=== PATIENT | male | born 1970 | race Caucasian/White ===

== ENCOUNTER 2017-06-11 21:00 | Inpatient (IN) | payer MEDICARE, OTHER ==
[2017-06-11] MEDS ORDERED: NORMAL SALINE 1,000 ML IV ONE (21:21)
[2017-06-11] MEDS ORDERED: ONDANSETRON HCL/PF 2 MG/ML VIAL IV ONE (21:21)
[2017-06-11] MEDS ORDERED: ONDANSETRON HCL/PF 2 MG/ML VIAL ONE (21:24)
[2017-06-11 21:47] LABS: Hematocrit 48.7 % (42.0-52.0); Hemoglobin 17.1 gm/dL (13.5-18.0); Mean Cell Volume 91.7 fl (78-100); Mean Corpuscular Hemoglobin 32.2 pg (27-31); Mean Corpuscular Hgb Conc 35.1 g/dl (32-36); Mean Platelet Volume 11.9 fl (6.0-9.5); Platelet Count 240 K/mm3 (150-450); Red Blood Count 5.31 M/mm3 (4.7-6.0); White Blood Count 9.6 K/mm3 (4.0-10.5)
[2017-06-11 21:51] LABS: Total Cells Counted 100
[2017-06-11] MEDS ORDERED: DIATRIZOATE MEGLUMINE, SODIUM 30 ML BTL ONE (21:58)
[2017-06-11 21:59] LABS: Albumin * 3.7 gm/dl (3.4-5.0); Anion Gap 15.8 mmol/L (6.8-13.8); BUN/Creatinine Ratio 10.9 (9.0-21.6); Band 3 % (0-2.0); Bilirubin, Total 0.8 mg/dL (0.0-1.1); Ca. Corrected For Albumin 9.2 mg/dL (8.4-10.2); Calcium * 9.3 mg/dL (7.9-10.9); Carbon Dioxide 26.3 mmol/L (24-32.6); Lymphocyte 31 % (20-51); Monocyte 26 % (0-9); Neutrophil 40 % (42-75); Neutrophil # 3.8 K/mm3 (1.3-6.0); Platelet Estimate Normal (NORMAL); Potassium 4.1 mmol/L (3.4-4.6); RBC Morphology Normal (NORMAL); Total Protein 8.2 gm/dL (6.2-8.2)
[2017-06-11] MEDS ORDERED: DIATRIZOATE MEGLUMINE, SODIUM 30 ML BTL PO ONE (22:01)
--- NOTE | 2017-06-11 22:52 | ERNOTE ---
Medical Problem HPI - General Chief Complaint: Nausea/Vomiting Source: family - family history is per mother as patient has had traumatic brain injury. Exam Limitations: no limitations - Immun/Allergies/Home Medications Immunizations: IMMUNIZATION HX Immunizations Up to Date Yes History of Influenza Vaccine No Hx Pneumococcal Vaccination No Allergies/Adverse Reactions: Allergies No Known Allergies Allergy (Unverified 06/11/17 21:15) - History of Present History Narrative: Patient resides with his mother and mother states that the patient has had nausea vomiting abdominal pain and diarrhea for 48 hours. No medications have been administered. Patient has not been drinking for the past 24 hours. He is here for worsening abdominal pain and distention. Review of Systems - Review of Systems Constitutional: Present: See HPI EYE: Present: no symptoms reported ENT: Present: no symptoms reported Respiratory: Present: no symptoms reported Cardiology: Present: no symptoms reported Gastrointestinal/Abdominal: Present: See HPI - Patient's Past Medical History Patient History - Medical: GERD, Seizures Patient History - Cardiac/Respiratory: No pertinent hx Patient History - Cancer: Brain Patient History - Surgical Procedures: Cancer Surgery Patient History - Other: None - Social History Living Situations: home Psych History: No pertinent hx - Immunizations Immunizations Up to Date: Yes Hx Pneumococcal Vaccination: No History of Influenza Vaccine: No Physical Exam - Physical Exam General Appearance: Present: wd/wn, alert, no apparent distress - patient is resting comfortably in the chair he does not respond readily but this is normal for him as he has had brain tumor and he's post surgically the way he is. Is normal for the patient. Head Exam: Present: normal inspection Respiratory: Present: no respiratory distress, normal breath sounds, no accessory muscle use, chest nontender, lungs clear Cardiovascular/Chest: Present: regular rate, rhythm, no murmur, normal peripheral pulses Gastrointestinal/Abdominal: Present: other - abdomen appears distended and tense on examination he has diffuse abdominal tenderness in all 4 quadrants. There is no rebound tenderness but patient is guarding. ED Progress - Results and Orders Patient's Lab Results:: I have reviewed the patient's lab results. - Vital Signs Patient's Vital Signs:: I have reviewed the patient's vital signs. Vital Signs: Vital Signs 06/11/17 06/11/17 21:10 22:07 Temperature 36.6 C Pulse Rate 117 H 121 H Respiratory 16 Rate Blood Pressure 183/89 140/92 O2 Sat by Pulse 92 92 Oximetry - CT/Ultrasound CT/Ultrasound Narrative: CT was read as small bowel obstruction. This patient has SBO and will be admitted. These findings were conveyed to our hospitalist and pt will be admitted - Progress/Reassessment Chief Complaint: Nausea/Vomiting Plan - Plan Plan: This patient's signs and symptoms and CAT scan are consistent with a small bowel obstruction. At this time the hospitalist with consult the patient will be admitted to the [facility] floor. Departure - Departure Clinical Impression: Small bowel obstruction Disposition: [facility] Condition: Fair
--- OUTSIDE RECORDS SUMMARY | 2017-06-11 23:19 | XMS REPORT | Continuity of Care Document ---
:1970 Author Organization [facility] [place] [address] Care Team Providers Name Role Phone Unavailable Primary Care Provider Unavailable Source Comments This disclosure is being made pursuant to the [employer] program and maynot contain all information available regarding this patient.[facility] Active Allergies and Adverse Reactions Not on File Current Medications Be aware that medications may not be up to date as of this document. Alwaysverify current medications with the patient. Not on file Active Problems Not on file Social History Tobacco Use Types Packs/Day Years Used Date Never Assessed Plan of Care Health Maintenance Due Date Last Done Comments Retired-Pertussis Vaccine Adult 1989 Retired-Tetanus Vaccine Adult 1989 Retired-INFLUENZA VACCINE 07/29/2015 Results from Last 3 Months Not on file
[2017-06-12 00:31] LABS: Urine Bilirubin 1 mg/dl (NEGATIVE); Urine Blood 25 /ul (NEGATIVE); Urine Ketone 5 mg/dL (NEGATIVE); Urine Protein 100 mg/dL (NEGATIVE); Urine Specific Gravity 1.015 SP.GR. (1.005-1.030); Urine Urobilinogen Normal (NORMAL); Urine pH 6.5 pH (5.0-7.0)
[2017-06-12] MEDS ORDERED: MORPHINE SULFATE 2 MG/ML DISP.SYRIN IV ONE (00:32)
[2017-06-12] MEDS ORDERED: MORPHINE SULFATE 2 MG/ML DISP.SYRIN ONE (00:34)
[2017-06-12 00:50] LABS: Urine Amorphous Sediment TRACE (NONE-FEW); Urine Appearance Slightly Cloudy; Urine Bacteria 2+; Urine Color Amber; Urine Fine Granular Cast 0-5 /LPF; Urine Hyaline Cast 0-5 /LPF; Urine Mucus Moderate - 2+; Urine Nitrite Positive (NEGATIVE); Urine WBC 0-5 /hpf (0-5)
[2017-06-12] MEDS ORDERED: ONDANSETRON HCL/PF 2 MG/ML VIAL IV PRN (01:24)
[2017-06-12] MEDS ORDERED: MORPHINE SULFATE 2 MG/ML DISP.SYRIN IV PRN (01:24)
[2017-06-12] MEDS ORDERED: ENOXAPARIN SODIUM 40 MG/0.4 ML SYRG SC SCH (01:30)
--- NOTE | 2017-06-12 01:36 | HP ---
<Madeline Bruce - Last Filed: 06/12/17 03:22> Chief Complaint - Chief Complaint Date of Service: 06/12/17 Time of Service: 01:25 Chief Complaint: SBO, UTI History of Present Illness: Marino is a 47 year old male with a PMH of traumatic brain injury, GERD, seizures , Brain Ca s/p brain surgery that presented to the ER with his mother with c/o nausea, vomiting and abdominal pain x 2 days. no fever/chills. no cp, dyspnea. ER eval revealed normal wbc with 40% neutrophils and 3% bands. CMP wnl except mildly elevated glucose. UA positive for protein, blood, nitrate, bilirubin (1), RBC, 2+ bacteria, hyaline casts and fine granular casts. CT abdomen showed distended stomach and small bowel with air fluid levels and a transition point in the right lower abdomen with unremarkable appendix. There was also trace free intraperitoneal fluid with shunt catheter in place and no free air. Patient to be admitted for SBO and UTI. - Patient's Past Medical History Patient History - Medical: GERD, Seizures Patient History - Cardiac/Respiratory: No pertinent hx Patient History - Cancer: Brain Patient History - Surgical Procedures: Cancer Surgery, Other - Shunt from brain to abdomen Patient History - Other: None - Family History Mother Family History - Medical: No pertinent hx Family History - Cardiac/Respiratory: No pertinent hx Family History - Cancer: No pertinent family hx Father Family History - Medical: No pertinent hx Family History - Cardiac/Respiratory: No pertinent hx Family History - Cancer: Melanoma, Other Maternal grandmother Family History - Medical: Family History - Cardiac/Respiratory: No pertinent hx Family History - Cancer: No pertinent family hx Maternal grandfather Family History - Medical: Family History - Cardiac/Respiratory: No pertinent hx Family History - Cancer: Leukemia Paternal grandmother Family History - Medical: Family History - Cardiac/Respiratory: No pertinent hx Family History - Cancer: Stomach Paternal grandfather Family History - Medical: Family History - Cardiac/Respiratory: No pertinent hx Family History - Cancer: No pertinent family hx - Social History Living Situations: home Psych History: No pertinent hx Smoking Status: Current every day smoker Have you smoked in the past 12 months: Yes Alcohol Use: none Drug Use: none - Immunizations Immunizations Up to Date: Yes Hx Pneumococcal Vaccination: No History of Influenza Vaccine: No Review Of Systems (GEN) - Review of Systems Generalized/Overall Review: Present: No Symptoms Reported EENTM: Present: No Symptoms Reported Respiratory: Present: No Symptoms Reported Cardiac: Present: No Symptoms Reported Abdominal: Present: Nausea, Vomiting, Abdominal Pain Genitourinary: Present: No Symptoms Reported Musculoskeletal: Present: No Symptoms Reported Neurological: Present: No Symptoms Reported Skin: Present: No Symptoms Reported Endocrine: Present: No Symptoms Reported Misc: All systems neg except as marked Immunizations: IMMUNIZATION HX Immunizations Up to Date Yes History of Influenza Vaccine No Hx Pneumococcal Vaccination No Allergies/Adverse Reactions: Allergies Allergy/AdvReac Type Severity Reaction Status Date / Time No Known Allergies Allergy Unverified 06/11/17 21:15 Home Medications: HOME MEDICATIONS Divalproex Sodium [Depakote] 1,250 mg PO DAILY 06/12/17 [Last Taken Unknown] Haloperidol 20 mg PO BID 06/12/17 [Last Taken Unknown] Oxybutynin Chloride [Ditropan] 5 mg PO HS 06/12/17 [Last Taken Unknown] Pantoprazole Sodium 20 mg PO DAILY 06/12/17 [Last Taken Unknown] QUEtiapine FUMARATE [Seroquel] 400 mg PO DAILY 06/12/17 [Last Taken Unknown] QUEtiapine FUMARATE [Seroquel] 500 mg PO HS 06/12/17 [Last Taken Unknown] Exam - Exam Vital Signs: Vital Signs - Last Taken Temp 36.6 C 06/11/17 21:10 Pulse 79 06/12/17 00:05 Resp 16 06/12/17 00:05 BP 145/72 06/12/17 00:05 Pulse Ox 98 06/12/17 00:05 Constitutional: Present: Alert, Cooperative, No distress ENT Exam: Present: hearing grossly normal Eye Exam: bilateral eye: normal inspection Neck: Present: full range of motion, supple Breasts: Present: Exam deferred Respiratory: Present: normal breath sounds, no respiratory distress, no accessory muscle use Cardiovascular/Chest: Present: normal peripheral pulses, regular rate, rhythm, no chest tenderness, no murmur Peripheral Pulses: dorsalis-pedis (R): 2+, dorsalis-pedis (L): 2+, radial (R): 2 +, radial (L): 2+ Abdomen: Present: tender - diffuse tenderness to palpation, guarding, rigidity, hypoactive /Rectal: Present: Exam deferred Extremity: Present: non-tender, normal inspection, no calf tenderness Skin Exam: Present: normal color, warm/dry, no cyanosis Diagnostic Studies: Laboratory Results WBC 9.6 K/mm3 (4.0-10.5) 06/11/17 21:40 RBC 5.31 M/mm3 (4.7-6.0) 06/11/17 21:40 Hgb 17.1 gm/dL (13.5-18.0) 06/11/17 21:40 Hct 48.7 % (42.0-52.0) 06/11/17 21:40 MCV 91.7 fl (78-100) 06/11/17 21:40 MCH 32.2 pg (27-31) H 06/11/17 21:40 MCHC 35.1 g/dl (32-36) 06/11/17 21:40 RDW 13.0 % (11.5-14.0) 06/11/17 21:40 Plt Count 240 K/mm3 (150-450) 06/11/17 21:40 MPV 11.9 fl (6.0-9.5) H 06/11/17 21:40 Neutrophils % (Manual) 40 % (42-75) L 06/11/17 21:40 Band Neuts % (Manual) 3 % (0-2.0) H 06/11/17 21:40 Lymphocytes % (Manual) 31 % (20-51) 06/11/17 21:40 Monocytes % (Manual) 26 % (0-9) H 06/11/17 21:40 Neutrophils # (Manual) 3.8 K/mm3 (1.3-6.0) 06/11/17 21:40 Lymphocytes # (Manual) 3.0 k/mm3 (1.5-3.5) 06/11/17 21:40 Monocytes # (Manual) 2.5 k/mm3 (0.0-1.0) H 06/11/17 21:40 Platelet Estimate Normal (NORMAL) 06/11/17 21:40 RBC Morphology Normal (NORMAL) 06/11/17 21:40 Sodium 138 mmol/L (132-142) 06/11/17 21:40 Plasma Sodium 139 mmol/L (130-142) 06/11/17 21:40 Potassium 4.1 mmol/L (3.4-4.6) 06/11/17 21:40 Chloride 100 mmol/L (97-106) 06/11/17 21:40 Carbon Dioxide 26.3 mmol/L (24-32.6) 06/11/17 21:40 Anion Gap 15.8 mmol/L (6.8-13.8) H 06/11/17 21:40 BUN 14 mg/dL (6-23) 06/11/17 21:40 Creatinine 1.29 mg/dL (0.4-1.4) 06/11/17 21:40 Est GFR (Non-Af Amer) 63 mL/min (60-130) 06/11/17 21:40 BUN/Creatinine Ratio 10.9 (9.0-21.6) 06/11/17 21:40 Random Glucose 133 mg/dL (70-110) H 06/11/17 21:40 Calcium 9.3 mg/dL (7.9-10.9) 06/11/17 21:40 Calcium Adj for Albumin 9.2 mg/dL (8.4-10.2) 06/11/17 21:40 Total Bilirubin 0.8 mg/dL (0.0-1.1) 06/11/17 21:40 AST 16 U/L (0-48) 06/11/17 21:40 ALT 23 U/L (19-67) 06/11/17 21:40 Alkaline Phosphatase 72 U/L (50-170) 06/11/17 21:40 Total Protein 8.2 gm/dL (6.2-8.2) 06/11/17 21:40 Albumin 3.7 gm/dl (3.4-5.0) 06/11/17 21:40 Urine Color Crystal 06/12/17 00:12 Urine Appearance Slightly cloudy 06/12/17 00:12 Urine pH 6.5 pH (5.0-7.0) 06/12/17 00:12 Ur Specific [place] 1.015 SP.GR. (1.005-1.030) 06/12/17 00:12 Urine Protein 100 mg/dL (NEGATIVE) H 06/12/17 00:12 Urine Glucose (UA) Negative mg/dL (NEGATIVE) 06/12/17 00:12 Urine Ketones 5 mg/dL (NEGATIVE) 06/12/17 00:12 Urine Blood 25 /ul (NEGATIVE) H 06/12/17 00:12 Urine Nitrate Positive (NEGATIVE) H 06/12/17 00:12 Urine Bilirubin 1 mg/dl (NEGATIVE) H 06/12/17 00:12 Urine Ictotest Negative (NEGATIVE) 06/12/17 00:12 Prot Sulfosalicylic Acd 2+ mg/dL (0) H 06/12/17 00:12 Urine Urobilinogen Normal EU/dl (NORMAL) 06/12/17 00:12 Ur Leukocyte Esterase Negative /ul (NEGATIVE) 06/12/17 00:12 Urine RBC 5-10 /hpf (0-5) H 06/12/17 00:12 Urine WBC 0-5 /hpf (0-5) 06/12/17 00:12 Ur Epithelial Cells None seen /hpf (0-5) 06/12/17 00:12 Amorphous Sediment Trace (NONE-FEW) 06/12/17 00:12 Urine Bacteria 2+ (NONE) H 06/12/17 00:12 Hyaline Casts 0-5 /LPF (NONE) H 06/12/17 00:12 Fine Granular Casts 0-5 /LPF (NONE) H 06/12/17 00:12 Urine Mucus Moderate - 2+ (NONE) H 06/12/17 00:12 Urine Culture Comments Culture to follow 06/12/17 00:12 Assessment/Plan - Narrative Narrative: Small Bowel Obstruction - NPO - insert NG and attach to low intermittent suction - Protonix 40 mg IV daily - Pain meds and nausea medications PRN - NS @ 125 ml/hr - Consult Dr Garcia with General Surgery to follow / for recommendations UTI - Rocephin 1 gm IV daily - awaiting final urine culture results - check blood cultures TBI - continue home meds - Haldol IM PRN restlessness Code status: Full Code VTE: Lovenox / SCDs while in bed GI proph: IV protonix Addendum: after admission, patient had 1750 ml of NG output shortly after NG inserted. NG drainage brown / benito colored with particular smell. Gastric occult ordered and + for blood. Now that this information is known, will d/c lovenox and use SCDs while in bed for VTE proph. no pharmalogical due to GI bleed. Dr Garcia was notified of admission, updated on case and he denied any further recommendations on 06/12/17 at 0236. Recheck patient's abdomen at this time and it is much softer that at admission since placing the NG tube. - Assessment/Plan (1) Small bowel obstruction Problem: Acute (2) UTI (urinary tract infection) Problem: Acute QualifierTitle: Urinary tract infection type: acute cystitis Hematuria presence: with hematuria Qualified Code(s): N30.01 - Acute cystitis with hematuria (3) TBI (traumatic brain injury) Problem: Chronic QualifierTitle: Encounter type: sequela (4) GERD (gastroesophageal reflux disease) Problem: Chronic QualifierTitle: Esophagitis presence: esophagitis presence not specified Qualified Code(s): K21.9 - Gastro-esophageal reflux disease without esophagitis (5) Seizures Problem: Chronic <Holland Nagy - Last Filed: 06/12/17 08:49> Immunizations: IMMUNIZATION HX Immunizations Up to Date Yes History of Influenza Vaccine No Hx Pneumococcal Vaccination No Exam - Exam Vital Signs: Vital Signs - Last Taken Temp 36.8 C 06/12/17 06:20 Pulse 115 H 06/12/17 06:20 Resp 20 06/12/17 06:20 BP 146/93 06/12/17 06:20 Pulse Ox 93 06/12/17 06:20 Diagnostic Studies: Abnormal Lab Results 06/12/17 Range/Units 02:21 Gastric Occult Blood Positive H Laboratory Results WBC 9.6 K/mm3 (4.0-10.5) 06/11/17 21:40 RBC 5.31 M/mm3 (4.7-6.0) 06/11/17 21:40 Hgb 17.1 gm/dL (13.5-18.0) 06/11/17 21:40 Hct 48.7 % (42.0-52.0) 06/11/17 21:40 MCV 91.7 fl (78-100) 06/11/17 21:40 MCH 32.2 pg (27-31) H 06/11/17 21:40 MCHC 35.1 g/dl (32-36) 06/11/17 21:40 RDW 13.0 % (11.5-14.0) 06/11/17 21:40 Plt Count 240 K/mm3 (150-450) 06/11/17 21:40 MPV 11.9 fl (6.0-9.5) H 06/11/17 21:40 Neutrophils % (Manual) 40 % (42-75) L 06/11/17 21:40 Band Neuts % (Manual) 3 % (0-2.0) H 06/11/17 21:40 Lymphocytes % (Manual) 31 % (20-51) 06/11/17 21:40 Monocytes % (Manual) 26 % (0-9) H 06/11/17 21:40 Neutrophils # (Manual) 3.8 K/mm3 (1.3-6.0) 06/11/17 21:40 Lymphocytes # (Manual) 3.0 k/mm3 (1.5-3.5) 06/11/17 21:40 Monocytes # (Manual) 2.5 k/mm3 (0.0-1.0) H 06/11/17 21:40 Platelet Estimate Normal (NORMAL) 06/11/17 21:40 RBC Morphology Normal (NORMAL) 06/11/17 21:40 Sodium 138 mmol/L (132-142) 06/11/17 21:40 Plasma Sodium 139 mmol/L (130-142) 06/11/17 21:40 Potassium 4.1 mmol/L (3.4-4.6) 06/11/17 21:40 Chloride 100 mmol/L (97-106) 06/11/17 21:40 Carbon Dioxide 26.3 mmol/L (24-32.6) 06/11/17 21:40 Anion Gap 15.8 mmol/L (6.8-13.8) H 06/11/17 21:40 BUN 14 mg/dL (6-23) 06/11/17 21:40 Creatinine 1.29 mg/dL (0.4-1.4) 06/11/17 21:40 Est GFR (Non-Af Amer) 63 mL/min (60-130) 06/11/17 21:40 BUN/Creatinine Ratio 10.9 (9.0-21.6) 06/11/17 21:40 Random Glucose 133 mg/dL (70-110) H 06/11/17 21:40 Calcium 9.3 mg/dL (7.9-10.9) 06/11/17 21:40 Calcium Adj for Albumin 9.2 mg/dL (8.4-10.2) 06/11/17 21:40 Total Bilirubin 0.8 mg/dL (0.0-1.1) 06/11/17 21:40 AST 16 U/L (0-48) 06/11/17 21:40 ALT 23 U/L (19-67) 06/11/17 21:40 Alkaline Phosphatase 72 U/L (50-170) 06/11/17 21:40 C-Reactive Prot, Quant 10.6 mg/dL (0.0-0.9) H 06/12/17 00:00 Total Protein 8.2 gm/dL (6.2-8.2) 06/11/17 21:40 Albumin 3.7 gm/dl (3.4-5.0) 06/11/17 21:40 Urine Color Crystal 06/12/17 00:12 Urine Appearance Slightly cloudy 06/12/17 00:12 Urine pH 6.5 pH (5.0-7.0) 06/12/17 00:12 Ur Specific [place] 1.015 SP.GR. (1.005-1.030) 06/12/17 00:12 Urine Protein 100 mg/dL (NEGATIVE) H 06/12/17 00:12 Urine Glucose (UA) Negative mg/dL (NEGATIVE) 06/12/17 00:12 Urine Ketones 5 mg/dL (NEGATIVE) 06/12/17 00:12 Urine Blood 25 /ul (NEGATIVE) H 06/12/17 00:12 Urine Nitrate Positive (NEGATIVE) H 06/12/17 00:12 Urine Bilirubin 1 mg/dl (NEGATIVE) H 06/12/17 00:12 Urine Ictotest Negative (NEGATIVE) 06/12/17 00:12 Prot Sulfosalicylic Acd 2+ mg/dL (0) H 06/12/17 00:12 Urine Urobilinogen Normal EU/dl (NORMAL) 06/12/17 00:12 Ur Leukocyte Esterase Negative /ul (NEGATIVE) 06/12/17 00:12 Urine RBC 5-10 /hpf (0-5) H 06/12/17 00:12 Urine WBC 0-5 /hpf (0-5) 06/12/17 00:12 Ur Epithelial Cells None seen /hpf (0-5) 06/12/17 00:12 Amorphous Sediment Trace (NONE-FEW) 06/12/17 00:12 Urine Bacteria 2+ (NONE) H 06/12/17 00:12 Hyaline Casts 0-5 /LPF (NONE) H 06/12/17 00:12 Fine Granular Casts 0-5 /LPF (NONE) H 06/12/17 00:12 Urine Mucus Moderate - 2+ (NONE) H 06/12/17 00:12 Urine Culture Comments Culture to follow 06/12/17 00:12 Gastric Occult Blood Positive H 06/12/17 02:21 Assessment/Plan - Narrative Narrative: Feels much better, surgery consult pending, plan discussed with patient and mother. I directed all of our nurse practitioner hospitalist care for this patient.
[2017-06-12] MEDS: PANTOPRAZOLE SODIUM 40 MG in NORMAL SALINE 100 ML IV SCH (02:05)
[2017-06-12] MEDS: NORMAL SALINE 1,000 ML IV PRN ×3 (02:06→19:18)
[2017-06-12] MEDS ORDERED: HALOPERIDOL LACTATE 5 MG/ML VIAL IM PRN (02:37)
[2017-06-12] MEDS ORDERED: PANTOPRAZOLE SODIUM 20 MG TABLET.DR PO SCH (07:00)
[2017-06-12] MEDS ORDERED: DIVALPROEX SODIUM 250 MG TABLET.DR PO SCH (09:00)
[2017-06-12] MEDS ORDERED: QUEtiapine FUMARATE 100 MG TABLET PO SCH ×2 (09:00→21:00)
[2017-06-12] MEDS ORDERED: HALOPERIDOL 5 MG TABLET PO SCH (09:00)
[2017-06-12] MEDS ORDERED: DIVALPROEX SODIUM 500 MG TABLET.DR PO SCH (09:00)
[2017-06-12] MEDS: VALPROIC ACID IV SCH ×2 (10:02→22:23)
[2017-06-12] MEDS: NORMAL SALINE IV SCH ×2 (10:02→22:23)
[2017-06-12] MEDS ORDERED: LORazepam 2 MG/ML DISP.SYRIN IV ONE (10:21)
--- NOTE | 2017-06-12 11:48 | CONS ---
[facility] - General Date of Service: 06/12/17 Narrative: Pt was admitted overnight with a partial small bowel obstruction and I have been asked to consult and follow along. He has a history of TBI and Brain CA and has a PLUG SHAPER HAND shunt. CT last night showed a partial small bowel obstruction without a clear cut transition point. He states that he is feeling better this morning. Initial placement of NG retrieved ~1700 cc of feculent return. Source: patient, RN/MD, old records Exam Limitations: no limitations - History of Present Illness Allergies/Adverse Reactions: Allergies No Known Allergies Allergy (Unverified 06/11/17 21:15) Home Medications: Home Medications Medication Instructions Recorded Last Taken Divalproex Sodium [Depakote] 1,250 mg PO DAILY 06/12/17 Unknown Haloperidol 20 mg PO BID 06/12/17 Unknown Oxybutynin Chloride [Ditropan] 5 mg PO HS 06/12/17 Unknown Pantoprazole Sodium 20 mg PO DAILY 06/12/17 Unknown QUEtiapine FUMARATE [Seroquel] 400 mg PO DAILY 06/12/17 Unknown QUEtiapine FUMARATE [Seroquel] 500 mg PO HS 06/12/17 Unknown - Patient's Past Medical History Patient History - Medical: GERD, Seizures Patient History - Cardiac/Respiratory: No pertinent hx Patient History - Cancer: Brain Patient History - Surgical Procedures: Cancer Surgery, Other - Shunt from brain to abdomen Patient History - Other: None - Family History Mother Family History - Medical: No pertinent hx Family History - Cardiac/Respiratory: No pertinent hx Family History - Cancer: No pertinent family hx Father Family History - Medical: No pertinent hx Family History - Cardiac/Respiratory: No pertinent hx Family History - Cancer: Melanoma, Other Maternal grandmother Family History - Medical: Family History - Cardiac/Respiratory: No pertinent hx Family History - Cancer: No pertinent family hx Maternal grandfather Family History - Medical: Family History - Cardiac/Respiratory: No pertinent hx Family History - Cancer: Leukemia Paternal grandmother Family History - Medical: Family History - Cardiac/Respiratory: No pertinent hx Family History - Cancer: Stomach Paternal grandfather Family History - Medical: Family History - Cardiac/Respiratory: No pertinent hx Family History - Cancer: No pertinent family hx - Social History Living Situations: home Abuse History: No History of abuse Psych History: No pertinent hx Smoking Status: Current every day smoker Have you smoked in the past 12 months: Yes Do you dip or chew tobacco: No Patient requests Smoking Cessation Consult: No Initiate information on Smoking Cessation: No Alcohol Use: none Drug Use: none - Immunizations Immunizations Up to Date: Yes Hx Pneumococcal Vaccination: No History of Influenza Vaccine: No Medications - Medications Current Medications: Current Medications Enoxaparin Sodium (Lovenox) 40 mg SC Q24H [facility] Stop: 07/12/17 01:31 Last Admin: 06/12/17 02:24 Dose: 40 mg Pantoprazole Sodium 40 mg/ (Sodium Chloride) 100 mls @ 400 mls/hr IV Q24H [facility] Stop: 07/12/17 01:31 Last Infusion: 06/12/17 02:20 Dose: Infused Sodium Chloride (Sodium Chloride 0.9%) 1,000 mls @ 125 mls/hr IV .Q8H PRN PRN Reason: HYDRATION Stop: 07/12/17 01:23 Last Admin: 06/12/17 02:06 Dose: 125 mls/hr Ceftriaxone Sodium 1,000 mg/ (Dextrose/Water) 100 mls @ 200 mls/hr IV Q24H [facility] PRN Reason: Protocol Stop: 07/12/17 01:31 Last Infusion: 06/12/17 03:06 Dose: Infused Valproic Acid 600 mg/ Sodium (Chloride) 56 mls @ 50 mls/hr IV Q12H [facility] Stop: 06/26/17 09:31 Last Infusion: 06/12/17 10:31 Dose: Infused Morphine Sulfate (Morphine Sulfate) 2 mg IV Q1H PRN PRN Reason: Moderate Pain Stop: 07/12/17 01:25 Last Admin: 06/12/17 09:54 Dose: 2 mg Ondansetron HCl (Zofran) 4 mg IV Q4H PRN PRN Reason: Nausea Stop: 07/12/17 01:25 Last Admin: 06/12/17 10:38 Dose: 4 mg Physical Examination - Exam Vital Signs: Vital Signs - Last Taken Temp 37.8 C H 06/12/17 10:00 Pulse 133 H 06/12/17 10:00 Resp 20 06/12/17 10:00 BP 146/90 06/12/17 10:00 Pulse Ox 93 06/12/17 10:00 O2 Oxygen Delivery Method Room Air Constitutional: Present: Alert, Cooperative, No distress ENT Exam: Present: other - NG in place and draining bilious succus entericus Neck: Present: normal inspection Respiratory: Present: no respiratory distress, no accessory muscle use Abdomen: Present: soft, nontender, no rebound tenderness, distended. Absent: guarding, rigidity Extremity: Present: normal inspection Skin Exam: Present: normal color, warm/dry Neurologic: Present: no motor/sensory deficits - Results and Findings: Lab/Microbiology results last 24 hrs: Abnormal/Pending Laboratory Last 24 HRS 06/12/17 02:21 Gastric Occult Blood Positive H - Assessments/Findings (1) Partial small bowel obstruction Diagnosis(s): P: Agree with conservative measures. Doubt shunt infection. Likely etiology is adhesive from his shunt placement. Will follow. Problem: Acute
[2017-06-12] MEDS: PIPERACILLIN SODIUM/TAZOBACTAM 3.375 GM in DEXTROSE 5 % IN WATER 100 ML IV SCH ×4 (12:38→19:55)
[2017-06-12] MEDS: SACCHAROMYCES BOULARDII 250 MG CAPSULE PO SCH ×2 (12:39→21:13)
[2017-06-12] MEDS: HALOPERIDOL LACTATE 2 MG/ML BTL SL SCH ×2 (14:12→21:14)
[2017-06-12] MEDS ORDERED: OXYBUTYNIN CHLORIDE 5 MG TABLET PO SCH (21:00)
[2017-06-12] MEDS ORDERED: QUEtiapine FUMARATE 100 MG TABLET RC SCH (21:00)
[2017-06-12] MEDS ORDERED: DEXTROSE 5%-LACTATED RINGERS 1,000 ML IV PRN (21:36)
--- NOTE | 2017-06-12 21:39 | PN ---
Progess Note - Interim Narrative: 06/12/17 21:37 called to patient room by nursing staff. pt very hard to wake up but did after 15-20 seconds of sternal rub. has pulse and is breathing. sats 93% on O2. will hold scheduled seroquel and haldol due to oversedation tonight. blood sugar checked and was 107. change fluids to D5LR at 125 ml/hr. order entered for cont pulse ox. will monitor patient closely. sg
[2017-06-13] MEDS: PANTOPRAZOLE SODIUM 40 MG in NORMAL SALINE 100 ML IV SCH (01:04)
[2017-06-13] MEDS: PIPERACILLIN SODIUM/TAZOBACTAM 3.375 GM in DEXTROSE 5 % IN WATER 100 ML IV SCH ×6 (03:57→20:27)
[2017-06-13] MEDS: HALOPERIDOL LACTATE 2 MG/ML BTL SL SCH ×4 (05:01→23:34)
[2017-06-13 05:26] LABS: Hematocrit 44.6 % (42.0-52.0); Hemoglobin 15.1 gm/dL (13.5-18.0); Mean Cell Volume 94.3 fl (78-100); Mean Corpuscular Hemoglobin 31.9 pg (27-31); Mean Corpuscular Hgb Conc 33.9 g/dl (32-36); Mean Platelet Volume 12.2 fl (6.0-9.5); Platelet Count 207 K/mm3 (150-450); Red Blood Count 4.73 M/mm3 (4.7-6.0); Red Cell Distribution Width 13.2 % (11.5-14.0); White Blood Count 9.3 K/mm3 (4.0-10.5)
[2017-06-13 05:41] LABS: Albumin * 2.7 gm/dl (3.4-5.0); Anion Gap 10.3 mmol/L (6.8-13.8); BUN/Creatinine Ratio 15.3 (9.0-21.6); Bilirubin, Total 0.6 mg/dL (0.0-1.1); Ca. Corrected For Albumin 8.7 mg/dL (8.4-10.2); Carbon Dioxide 33.4 mmol/L (24-32.6); Potassium 3.7 mmol/L (3.4-4.6); Total Protein 7.2 gm/dL (6.2-8.2)
[2017-06-13 06:06] LABS: CRP 27.1 mg/dL (0.0-0.9)
[2017-06-13 06:20] LABS: Total Cells Counted 100
--- NOTE | 2017-06-13 06:22 | PN ---
<Madeline Bruce - Last Filed: 06/13/17 06:13> Subjective - Date and Time Seen Date: 06/13/17 Time: 06:13 Subjective Narrative: just pulled out NG tube. otherwise denies needs. Objective - Review of Systems Generalized/Overall Review: Reports: No Symptoms Reported EENTM: Reports: No Symptoms Reported Respiratory: Reports: No Symptoms Reported Cardiac: Reports: No Symptoms Reported Abdominal: Reports: No Symptoms Reported Genitourinary Symptoms: Reports: No Symptoms Reported Musculoskeletal Complaints: Reports: No Symptoms Reported Neurological: Reports: No Symptoms Reported Skin: Reports: No Symptoms Reported Endocrine: Reports: No Symptoms Reported Misc: All systems neg except as marked - Vitals Vitals: Last Vital Signs Temp 37.4 C 06/13/17 03:29 Pulse 99 06/13/17 03:29 Resp 22 H 06/13/17 03:29 BP 130/90 06/13/17 03:29 Pulse Ox 98 06/13/17 03:29 - Abnormal Lab Findings Abnormal Lab Findings: Abnormal Lab Results 06/13/17 Range/Units 04:45 Carbon Dioxide 33.4 H (24-32.6) mmol/L Est GFR (Non-Af Amer) 59 L (60-130) mL/min C-Reactive Prot, Quant 27.1 H (0.0-0.9) mg/dL Albumin 2.7 L (3.4-5.0) gm/dl - Exam Constitutional: Present: Alert, Cooperative, No distress ENT Exam: Present: hearing grossly normal Neck: Present: supple Breasts: Present: Exam deferred Respiratory: Present: normal breath sounds, no respiratory distress, no accessory muscle use Cardiovascular/Chest: Present: normal peripheral pulses, regular rate, rhythm, no chest tenderness Abdomen: Present: soft, nondistended, tender /Rectal: Present: Exam deferred Extremity: Present: non-tender, normal inspection Skin Exam: Present: normal color, warm/dry, no cyanosis Assessment/Plan Plan Narrative: Small Bowel Obstruction - NPO - pt just pulled out NG tube - checked ab xray - still with dilated small bowel - orders given to reinsert NG tube to low intermittent suction. - Protonix 40 mg IV daily - Pain meds and nausea medications PRN - D5LR @ 125 ml/hr - Dr Garcia with General Surgery following - appreciate - gastric occult positive - zosyn ordered for possible bowel infection UTI - Zosyn ordered iv - awaiting final urine culture results - blood cultures pending but no growth so far TBI - continue home meds Code status: Full Code VTE: SCDs while in bed. No lovenox due to GI Bleeding GI proph: IV protonix - Problems/Diagnosis (1) Small bowel obstruction Problem: Acute (2) UTI (urinary tract infection) Problem: Acute QualifierTitle: Urinary tract infection type: acute cystitis Hematuria presence: with hematuria Qualified Code(s): N30.01 - Acute cystitis with hematuria (3) TBI (traumatic brain injury) Problem: Chronic QualifierTitle: Encounter type: sequela (4) GERD (gastroesophageal reflux disease) Problem: Chronic QualifierTitle: Esophagitis presence: esophagitis presence not specified Qualified Code(s): K21.9 - Gastro-esophageal reflux disease without esophagitis (5) Seizures Problem: Chronic <Holland Nagy - Last Filed: 06/13/17 17:25> Subjective Subjective Narrative: Tube is still required. Treatment remains expectant at this juncture. I directed all of our nurse practitioner hospitalist care for this patient. Objective - Vitals Vitals: Last Vital Signs Temp 36.6 C 06/13/17 14:20 Pulse 107 H 06/13/17 17:00 Resp 12 06/13/17 14:20 BP 134/74 06/13/17 14:20 Pulse Ox 99 06/13/17 15:27 - Abnormal Lab Findings Abnormal Lab Findings: Abnormal Lab Results 06/13/17 06/13/17 06/13/17 Range/Units 04:45 04:45 04:45 MCH 31.9 H (27-31) pg MPV 12.2 H (6.0-9.5) fl Band Neuts % (Manual) 23 H (0-2.0) % Lymphocytes % (Manual) 19 L (20-51) % Monocytes % (Manual) 14 H (0-9) % Monocytes # (Manual) 1.3 H (0.0-1.0) k/mm3 ESR 18 H (0-10) mm/hr Carbon Dioxide 33.4 H (24-32.6) mmol/L Est GFR (Non-Af Amer) 59 L (60-130) mL/min C-Reactive Prot, Quant 27.1 H (0.0-0.9) mg/dL Albumin 2.7 L (3.4-5.0) gm/dl
[2017-06-13 06:26] LABS: Band 23 % (0-2.0); Dohle Bodies 1+; Lymphocyte 19 % (20-51); Monocyte 14 % (0-9); Neutrophil 44 % (42-75); Neutrophil # 4.1 K/mm3 (1.3-6.0); Platelet Estimate Normal (NORMAL)
[2017-06-13] MEDS: POTASSIUM CHLORIDE 20 MEQ in DEXTROSE 5%-LACTATED RINGERS 1,000 ML IV SCH ×3 (07:32→23:35)
[2017-06-13] MEDS ORDERED: QUEtiapine FUMARATE 100 MG TABLET RC SCH (09:00)
[2017-06-13] MEDS: SACCHAROMYCES BOULARDII 250 MG CAPSULE PO SCH ×2 (09:42→21:01)
[2017-06-13] MEDS: VALPROIC ACID IV SCH ×2 (09:42→21:02)
[2017-06-13] MEDS: QUEtiapine FUMARATE 100 MG TABLET RC SCH ×2 (09:42→21:02)
[2017-06-13] MEDS: NORMAL SALINE IV SCH ×2 (09:42→21:02)
--- NOTE | 2017-06-13 17:49 | PN ---
Dictated Progress Note - Date and Time Seen: Date: 06/13/17 Time: 16:00 - Progress Note Narrative: Vital Signs - Last Taken Temp 36.6 C 06/13/17 14:20 Pulse 107 H 06/13/17 17:00 Resp 12 06/13/17 14:20 BP 134/74 06/13/17 14:20 Pulse Ox 99 06/13/17 15:27 Abnormal/Pending Laboratory Last 24 HRS 06/13/17 06/13/17 06/13/17 04:45 04:45 04:45 MCH 31.9 H MPV 12.2 H Band Neuts % (Manual) 23 H Lymphocytes % (Manual) 19 L Monocytes % (Manual) 14 H Monocytes # (Manual) 1.3 H ESR 18 H Carbon Dioxide 33.4 H Est GFR (Non-Af Amer) 59 L C-Reactive Prot, Quant 27.1 H Albumin 2.7 L Culture 06/12/17 01:40 Blood Culture - Preliminary Blood NO GROWTH 24 HOURS Patient is a 47-year-old male admitted with vomiting and diarrhea. He was found to have a partial small bowel obstruction on initial x-rays and CT scan. Nasogastric tube was placed. He had a large volume output. He pulled the tube early today however was replaced, and continues to drain dark green material. Repeat x-ray reveals air and stool in the colon however the dilated small bowel persists. I was notified that the patient was in hospital at 2:40 PM. Patient states he is thirsty but his abdomen feels better and he is breathing easier with somewhat less distended abdomen. His abdomen is soft; there is no percussion or direct tenderness. There is no rebound tenderness. He has no guarding. He has a healed gastrostomy site and a small incision in the right upper quadrant without hernia. Repeat x-ray today continues to show what appears to be a high-grade partial small bowel obstruction, and review of the CT scan reveals a transition point in the area of the end of the SEO COORDINATOR shunt tubing. I discussed the situation with the patient and his father who was present. I osmel diagrams to explain not only the bowel obstruction but also the [employer] CO[employer] shunt and previous gastrostomy. The patient has initial surgery in [facility]. He has been followed at [facility] in [place], however he is also seen at the [facility] in [place]. PLAN: The nasogastric tube was adjusted, irrigated, and appears to be functioning. I would recommend continued nasogastric suction, although he may have some ice chips. A repeat film should be obtained in the morning. Should he require operative intervention I would recommend transfer to a higher level of care in the event that the [employer] shunt needs attention/revision. Reviewed at electronically signed
[2017-06-13] MEDS ORDERED: BENZOCAINE/MENTHOL 16 EACH BOX MM PRN (19:46)
[2017-06-13] MEDS ORDERED: TETRACAINE/BENZOCAINE/BUTAMBEN 20 SPRAY BTL TP PRN (19:46)
[2017-06-14] MEDS: PANTOPRAZOLE SODIUM 40 MG in NORMAL SALINE 100 ML IV SCH (01:49)
[2017-06-14] MEDS: PIPERACILLIN SODIUM/TAZOBACTAM 3.375 GM in DEXTROSE 5 % IN WATER 100 ML IV SCH ×6 (04:52→20:40)
[2017-06-14 05:54] LABS: Hematocrit 38.4 % (42.0-52.0); Hemoglobin 13.1 gm/dL (13.5-18.0); Mean Cell Volume 93.9 fl (78-100); Mean Corpuscular Hgb Conc 34.1 g/dl (32-36); Mean Platelet Volume 11.8 fl (6.0-9.5); Neutrophil # 4.6 K/mm3 (1.3-6.0); Neutrophil % 51.5 % (42-75.0); Platelet Count 189 K/mm3 (150-450); Red Blood Count 4.09 M/mm3 (4.7-6.0); Red Cell Distribution Width 13.2 % (11.5-14.0)
[2017-06-14 06:13] LABS: Albumin * 2.4 gm/dl (3.4-5.0); Anion Gap 6.5 mmol/L (6.8-13.8); BUN/Creatinine Ratio 14.1 (9.0-21.6); Bilirubin, Total 0.5 mg/dL (0.0-1.1); Ca. Corrected For Albumin 8.9 mg/dL (8.4-10.2); Calcium * 7.9 mg/dL (7.9-10.9); Carbon Dioxide 31.7 mmol/L (24-32.6); Potassium 3.2 mmol/L (3.4-4.6); Total Protein 6.2 gm/dL (6.2-8.2)
[2017-06-14] MEDS: HALOPERIDOL LACTATE 2 MG/ML BTL SL SCH ×3 (08:23→23:05)
[2017-06-14] MEDS: POTASSIUM CHLORIDE 20 MEQ in DEXTROSE 5%-LACTATED RINGERS 1,000 ML IV SCH ×2 (08:23→17:27)
[2017-06-14] MEDS: QUEtiapine FUMARATE 100 MG TABLET RC SCH ×2 (08:25→20:41)
[2017-06-14] MEDS: SACCHAROMYCES BOULARDII 250 MG CAPSULE PO SCH ×2 (08:25→20:40)
--- NOTE | 2017-06-14 08:56 | PN ---
Subjective - Date and Time Seen Date: 06/14/17 Time: 07:30 Subjective Narrative: Tube is still required. Treatment remains expectant at this juncture. Surgeons note reviewed. Patient stable. Abdominal film improved, NG output still significant. Objective - Review of Systems Generalized/Overall Review: Reports: No Symptoms Reported EENTM: Reports: No Symptoms Reported Respiratory: Reports: No Symptoms Reported Cardiac: Reports: No Symptoms Reported Abdominal: Reports: No Symptoms Reported Genitourinary Symptoms: Reports: No Symptoms Reported Musculoskeletal Complaints: Reports: No Symptoms Reported Neurological: Reports: No Symptoms Reported Skin: Reports: No Symptoms Reported Endocrine: Reports: No Symptoms Reported Misc: All systems neg except as marked - Vitals Vitals: Last Vital Signs Selected Entries 06/14/17 06:00 Temperature 36.6 C Temperature Oral Source Pulse Rate 78 Respiratory 18 Rate Respiratory Normal Depth Blood Pressure 141/67 O2 Sat by Pulse 96 Oximetry Oxygen Delivery Room Air Method - Abnormal Lab Findings Abnormal Lab Findings: Abnormal Lab Results 06/14/17 06/14/17 06/14/17 Range/Units 05:45 05:45 05:45 RBC 4.09 L (4.7-6.0) M/mm3 Hgb 13.1 L (13.5-18.0) gm/dL Hct 38.4 L (42.0-52.0) % MCH 32.0 H (27-31) pg MPV 11.8 H (6.0-9.5) fl Immature Gran # (Auto) 0.04 H (0.000-0.0310) K/mm3 Monocytes % 14.3 H (0.0-9) % Monocytes # 1.3 H (0.0-1.0) k/mm3 ESR 16 H (0-10) mm/hr Potassium 3.2 L (3.4-4.6) mmol/L Anion Gap 6.5 L (6.8-13.8) mmol/L Alkaline Phosphatase 44 L (50-170) U/L Albumin 2.4 L (3.4-5.0) gm/dl - Exam Constitutional: Present: Cooperative, Somnolent ENT Exam: Present: normal ENT inspection Neck: Present: normal inspection Respiratory: Present: normal breath sounds, no respiratory distress Cardiovascular/Chest: Present: regular rate, rhythm, no murmur Abdomen: Present: Normal bowel sounds, soft, nontender, nondistended, no rebound tenderness, no hepatospenomegaly, no masses Extremity: Present: normal inspection, no pedal edema Skin Exam: Present: normal color, warm/dry, no cyanosis Appearance: Present: appropriate appearance Eye contact: Present: cooperative Thoughts: Present: other - mother present, plan discussed, questions answered. Assessment/Plan Plan Narrative: Will continue with current plan. Shunt in area of SBO noted and discussed with mother. This discussion was also had with surgeon and father yesterday. If no improvement tomorrow or if worsening prior to tomorrow will transfer to [facility]. - Problems/Diagnosis (1) Partial small bowel obstruction Problem: Acute (2) Seizures Problem: Chronic (3) TBI (traumatic brain injury) Problem: Chronic Qualifiers: Encounter type: sequela
[2017-06-14] MEDS: VALPROIC ACID IV SCH ×2 (10:08→20:40)
[2017-06-14] MEDS: NORMAL SALINE IV SCH ×2 (10:08→20:40)
[2017-06-15] MEDS: PANTOPRAZOLE SODIUM 40 MG in NORMAL SALINE 100 ML IV SCH (00:39)
[2017-06-15] MEDS: POTASSIUM CHLORIDE 20 MEQ in DEXTROSE 5%-LACTATED RINGERS 1,000 ML IV SCH ×3 (00:45→18:18)
[2017-06-15] MEDS: PIPERACILLIN SODIUM/TAZOBACTAM 3.375 GM in DEXTROSE 5 % IN WATER 100 ML IV SCH ×6 (03:50→20:25)
[2017-06-15 05:47] LABS: Hematocrit 40.7 % (42.0-52.0); Mean Cell Volume 92.1 fl (78-100); Mean Corpuscular Hemoglobin 31.7 pg (27-31); Mean Corpuscular Hgb Conc 34.4 g/dl (32-36); Mean Platelet Volume 11.6 fl (6.0-9.5); Neutrophil # 4.4 K/mm3 (1.3-6.0); Neutrophil % 49.5 % (42-75.0); Platelet Count 239 K/mm3 (150-450); Red Blood Count 4.42 M/mm3 (4.7-6.0); Red Cell Distribution Width 12.9 % (11.5-14.0); White Blood Count 8.9 K/mm3 (4.0-10.5)
--- NOTE | 2017-06-15 05:51 | PN ---
<Madeline Bruce - Last Filed: 06/15/17 05:52> Subjective - Date and Time Seen Date: 06/15/17 Time: 05:51 Subjective Narrative: states that he is feeling better. mother states that he was voiding a lot the last day - was brown but is now clear yellow urine per mother. mother is worried about possible transfer of patient. Objective - Review of Systems Generalized/Overall Review: Reports: No Symptoms Reported EENTM: Reports: No Symptoms Reported Respiratory: Reports: No Symptoms Reported Cardiac: Reports: No Symptoms Reported Abdominal: Reports: No Symptoms Reported Genitourinary Symptoms: Reports: Frequency Musculoskeletal Complaints: Reports: No Symptoms Reported Neurological: Reports: No Symptoms Reported Skin: Reports: No Symptoms Reported Endocrine: Reports: No Symptoms Reported Misc: All systems neg except as marked - Vitals Vitals: Last Vital Signs Temp 36.4 C L 06/15/17 02:20 Pulse 76 06/15/17 02:20 Resp 18 06/15/17 02:20 BP 124/66 06/15/17 02:20 Pulse Ox 96 06/15/17 02:20 - Abnormal Lab Findings Abnormal Lab Findings: Abnormal Lab Results 06/14/17 06/14/17 06/14/17 Range/Units 05:45 05:45 05:45 RBC 4.09 L (4.7-6.0) M/mm3 Hgb 13.1 L (13.5-18.0) gm/dL Hct 38.4 L (42.0-52.0) % MCH 32.0 H (27-31) pg MPV 11.8 H (6.0-9.5) fl Immature Gran # (Auto) 0.04 H (0.000-0.0310) K/mm3 Monocytes % 14.3 H (0.0-9) % Monocytes # 1.3 H (0.0-1.0) k/mm3 ESR 16 H (0-10) mm/hr Potassium 3.2 L (3.4-4.6) mmol/L Anion Gap 6.5 L (6.8-13.8) mmol/L Alkaline Phosphatase 44 L (50-170) U/L C-Reactive Prot, Quant (0.0-0.9) mg/dL Albumin 2.4 L (3.4-5.0) gm/dl 06/14/17 Range/Units 05:45 RBC (4.7-6.0) M/mm3 Hgb (13.5-18.0) gm/dL Hct (42.0-52.0) % MCH (27-31) pg MPV (6.0-9.5) fl Immature Gran # (Auto) (0.000-0.0310) K/mm3 Monocytes % (0.0-9) % Monocytes # (0.0-1.0) k/mm3 ESR (0-10) mm/hr Potassium (3.4-4.6) mmol/L Anion Gap (6.8-13.8) mmol/L Alkaline Phosphatase (50-170) U/L C-Reactive Prot, Quant 15.4 H (0.0-0.9) mg/dL Albumin (3.4-5.0) gm/dl - Exam Constitutional: Present: Alert, Cooperative, No distress ENT Exam: Present: hearing grossly normal Neck: Present: full range of motion, supple Breasts: Present: Exam deferred Respiratory: Present: normal breath sounds, no respiratory distress, no accessory muscle use Cardiovascular/Chest: Present: normal peripheral pulses, regular rate, rhythm, no chest tenderness Abdomen: Present: soft, nontender, nondistended /Rectal: Present: Exam deferred Extremity: Present: non-tender, normal inspection, no calf tenderness Skin Exam: Present: normal color, warm/dry, no cyanosis Assessment/Plan Plan Narrative: Small Bowel Obstruction - NPO - NG tube drainage has slowed down - 3550 ml (06/13/17) --> 1525 ml (06/14/17) - abdomen soft and non-tender to palpation this am. - Protonix 40 mg IV daily - Pain meds and nausea medications PRN - D5LR @ 125 ml/hr - Dr Gee with General Surgery following - appreciate - gastric occult positive - zosyn ordered for possible bowel infection - awaiting am lab UTI - ruled out, urine culture did not grow anything. TBI - continue home meds per [facility] orders Code status: Full Code VTE: SCDs while in bed. No lovenox due to GI Bleeding GI proph: IV protonix - Problems/Diagnosis (1) Small bowel obstruction Problem: Acute (2) UTI (urinary tract infection) Problem: Acute QualifierTitle: Urinary tract infection type: acute cystitis Hematuria presence: with hematuria Qualified Code(s): N30.01 - Acute cystitis with hematuria (3) TBI (traumatic brain injury) Problem: Chronic QualifierTitle: Encounter type: sequela (4) GERD (gastroesophageal reflux disease) Problem: Chronic QualifierTitle: Esophagitis presence: esophagitis presence not specified Qualified Code(s): K21.9 - Gastro-esophageal reflux disease without esophagitis (5) Seizures Problem: Chronic <Holland Nagy - Last Filed: 06/15/17 09:11> Subjective Subjective Narrative: Exam improved, labs improved, xray improved. Less NG output. Will try no NG today. I directed all of our nurse practitioner hospitalist care for this patient. Objective - Vitals Vitals: Last Vital Signs Temp 36.7 C 06/15/17 06:32 Pulse 83 06/15/17 06:32 Resp 16 06/15/17 06:32 BP 122/69 06/15/17 06:32 Pulse Ox 95 06/15/17 06:32 - Abnormal Lab Findings Abnormal Lab Findings: Abnormal Lab Results 06/15/17 06/15/17 06/15/17 Range/Units 05:34 05:34 05:34 RBC 4.42 L (4.7-6.0) M/mm3 Hct 40.7 L (42.0-52.0) % MCH 31.7 H (27-31) pg MPV 11.6 H (6.0-9.5) fl Immature Gran % (Auto) 0.60 H (0.001-0.429) % Immature Gran # (Auto) 0.05 H (0.000-0.0310) K/mm3 Monocytes % 11.1 H (0.0-9) % ESR 15 H (0-10) mm/hr BUN 5 L D (6-23) mg/dL BUN/Creatinine Ratio 6.2 L (9.0-21.6) C-Reactive Prot, Quant 8.3 H (0.0-0.9) mg/dL Albumin 2.5 L (3.4-5.0) gm/dl Assessment/Plan - Problems/Diagnosis (1) Partial small bowel obstruction Problem: Acute (2) Seizures Problem: Chronic (3) TBI (traumatic brain injury) Problem: Chronic Qualifiers: Encounter type: sequela
[2017-06-15 06:03] LABS: Albumin * 2.5 gm/dl (3.4-5.0); Anion Gap 9.6 mmol/L (6.8-13.8); BUN/Creatinine Ratio 6.2 (9.0-21.6); Bilirubin, Total 0.6 mg/dL (0.0-1.1); CRP 8.3 mg/dL (0.0-0.9); Ca. Corrected For Albumin 9.3 mg/dL (8.4-10.2); Calcium * 8.4 mg/dL (7.9-10.9); Potassium 3.6 mmol/L (3.4-4.6); Total Protein 6.6 gm/dL (6.2-8.2)
[2017-06-15] MEDS: HALOPERIDOL LACTATE 2 MG/ML BTL SL SCH ×3 (07:17→22:50)
[2017-06-15] MEDS: QUEtiapine FUMARATE 100 MG TABLET RC SCH ×2 (09:08→20:26)
[2017-06-15] MEDS: SACCHAROMYCES BOULARDII 250 MG CAPSULE PO SCH ×2 (09:08→20:26)
[2017-06-15] MEDS: NORMAL SALINE IV SCH ×2 (09:09→20:31)
[2017-06-15] MEDS: VALPROIC ACID IV SCH ×2 (09:09→20:31)
[2017-06-16] MEDS: PANTOPRAZOLE SODIUM 40 MG in NORMAL SALINE 100 ML IV SCH (00:36)
[2017-06-16] MEDS: POTASSIUM CHLORIDE 20 MEQ in DEXTROSE 5%-LACTATED RINGERS 1,000 ML IV SCH ×4 (00:38→22:34)
[2017-06-16] MEDS: PIPERACILLIN SODIUM/TAZOBACTAM 3.375 GM in DEXTROSE 5 % IN WATER 100 ML IV SCH ×6 (03:48→20:21)
[2017-06-16 05:52] LABS: Hemoglobin 13.4 gm/dL (13.5-18.0); Mean Cell Volume 91.8 fl (78-100); Mean Corpuscular Hemoglobin 31.5 pg (27-31); Mean Corpuscular Hgb Conc 34.4 g/dl (32-36); Mean Platelet Volume 11.1 fl (6.0-9.5); Neutrophil # 3.1 K/mm3 (1.3-6.0); Neutrophil % 37.6 % (42-75.0); Platelet Count 278 K/mm3 (150-450); Red Blood Count 4.25 M/mm3 (4.7-6.0); White Blood Count 8.3 K/mm3 (4.0-10.5)
--- NOTE | 2017-06-16 05:53 | PN ---
<Madeline Bruce - Last Filed: 06/16/17 05:46> Subjective - Date and Time Seen Date: 06/16/17 Time: 05:46 Subjective Narrative: denies any abdominal pain. denies any n/v. had 2 large loose stools since NG came out. Objective - Review of Systems Generalized/Overall Review: Reports: No Symptoms Reported EENTM: Reports: No Symptoms Reported Respiratory: Reports: No Symptoms Reported Cardiac: Reports: No Symptoms Reported Abdominal: Reports: No Symptoms Reported Genitourinary Symptoms: Reports: No Symptoms Reported Musculoskeletal Complaints: Reports: No Symptoms Reported Neurological: Reports: No Symptoms Reported Skin: Reports: No Symptoms Reported Endocrine: Reports: No Symptoms Reported Misc: All systems neg except as marked - Vitals Vitals: Last Vital Signs Temp 37.0 C 06/16/17 03:04 Pulse 81 06/16/17 03:04 Resp 20 06/16/17 03:04 BP 131/72 06/16/17 03:04 Pulse Ox 100 06/16/17 03:04 - Abnormal Lab Findings Abnormal Lab Findings: Abnormal Lab Results 06/15/17 06/15/17 06/15/17 Range/Units 05:34 05:34 05:34 RBC 4.42 L (4.7-6.0) M/mm3 Hct 40.7 L (42.0-52.0) % MCH 31.7 H (27-31) pg MPV 11.6 H (6.0-9.5) fl Immature Gran % (Auto) 0.60 H (0.001-0.429) % Immature Gran # (Auto) 0.05 H (0.000-0.0310) K/mm3 Monocytes % 11.1 H (0.0-9) % ESR 15 H (0-10) mm/hr BUN 5 L D (6-23) mg/dL BUN/Creatinine Ratio 6.2 L (9.0-21.6) C-Reactive Prot, Quant 8.3 H (0.0-0.9) mg/dL Albumin 2.5 L (3.4-5.0) gm/dl - Exam Constitutional: Present: Alert, Cooperative, No distress ENT Exam: Present: hearing grossly normal Neck: Present: full range of motion, supple Breasts: Present: Exam deferred Respiratory: Present: lungs clear, normal breath sounds, no respiratory distress , no accessory muscle use Cardiovascular/Chest: Present: normal peripheral pulses, regular rate, rhythm, no chest tenderness Abdomen: Present: soft, nondistended, tender - very mild epigastric tenderness to palpation, otherwise the rest of the abdomen is non-tender to palpation.. Absent: guarding, rigidity /Rectal: Present: Exam deferred Extremity: Present: non-tender, normal inspection, no calf tenderness Skin Exam: Present: normal color, warm/dry, no cyanosis Assessment/Plan Plan Narrative: Small Bowel Obstruction - currently on clear liquid diet - NG tube removed 06/15/17 - very mild epigastric abdominal pain to palpation otherwise rest of abdomen is non-tender. - ? stay on clear liquid diet today to see if this pain progresses, otherwise advance diet tomorrow ? - Protonix 40 mg IV daily - D5LR @ 125 ml/hr - Dr Gee with General Surgery following - appreciate - gastric occult positive - zosyn ordered for possible bowel infection - awaiting am lab UTI - ruled out, urine culture did not grow anything. TBI - continue home meds per [facility] orders - ? change to oral route today? Code status: Full Code VTE: SCDs while in bed. No lovenox due to GI Bleeding GI proph: IV protonix - Problems/Diagnosis (1) Small bowel obstruction Problem: Acute (2) UTI (urinary tract infection) Problem: Acute QualifierTitle: Urinary tract infection type: acute cystitis Hematuria presence: with hematuria Qualified Code(s): N30.01 - Acute cystitis with hematuria (3) TBI (traumatic brain injury) Problem: Chronic QualifierTitle: Encounter type: sequela (4) GERD (gastroesophageal reflux disease) Problem: Chronic QualifierTitle: Esophagitis presence: esophagitis presence not specified Qualified Code(s): K21.9 - Gastro-esophageal reflux disease without esophagitis (5) Seizures Problem: Chronic <Holland Nagy - Last Filed: 06/16/17 07:34> Subjective Subjective Narrative: Feels quite well, will switch to oral meds. No need for IV fluids or tele. I directed all of our nurse practitioner hospitalist care for this patient. Objective - Vitals Vitals: Last Vital Signs Temp 36.9 C 06/16/17 07:02 Pulse 74 07/20/17 07:02 Resp 20 06/16/17 07:02 BP 132/71 06/16/17 07:02 Pulse Ox 96 06/16/17 07:02 - Abnormal Lab Findings Abnormal Lab Findings: Abnormal Lab Results 06/16/17 06/16/17 06/16/17 Range/Units 05:41 05:41 05:41 RBC 4.25 L (4.7-6.0) M/mm3 Hgb 13.4 L (13.5-18.0) gm/dL Hct 39.0 L (42.0-52.0) % MCH 31.5 H (27-31) pg MPV 11.1 H (6.0-9.5) fl Immature Gran % (Auto) 1.20 H (0.001-0.429) % Immature Gran # (Auto) 0.10 H (0.000-0.0310) K/mm3 Neutrophils % 37.6 L (42-75.0) % Monocytes % 12.7 H (0.0-9) % Lymphocytes # 3.8 H (1.5-3.5) k/mm3 Monocytes # 1.1 H (0.0-1.0) k/mm3 ESR 26 H (0-10) mm/hr BUN 4 L (6-23) mg/dL BUN/Creatinine Ratio 4.7 L (9.0-21.6) C-Reactive Prot, Quant 4.2 H (0.0-0.9) mg/dL Total Protein 6.1 L (6.2-8.2) gm/dL Albumin 2.3 L (3.4-5.0) gm/dl Assessment/Plan - Problems/Diagnosis (1) Partial small bowel obstruction Problem: Acute (2) Seizures Problem: Chronic (3) TBI (traumatic brain injury) Problem: Chronic Qualifiers: Encounter type: sequela
[2017-06-16 06:03] LABS: Albumin * 2.3 gm/dl (3.4-5.0); Anion Gap 9.8 mmol/L (6.8-13.8); BUN/Creatinine Ratio 4.7 (9.0-21.6); Bilirubin, Total 0.6 mg/dL (0.0-1.1); CRP 4.2 mg/dL (0.0-0.9); Ca. Corrected For Albumin 9.4 mg/dL (8.4-10.2); Calcium * 8.4 mg/dL (7.9-10.9); Carbon Dioxide 27.7 mmol/L (24-32.6); Potassium 3.5 mmol/L (3.4-4.6); Total Protein 6.1 gm/dL (6.2-8.2)
[2017-06-16] MEDS: HALOPERIDOL LACTATE 2 MG/ML BTL SL SCH ×3 (07:13→22:27)
[2017-06-16] MEDS: SACCHAROMYCES BOULARDII 250 MG CAPSULE PO SCH ×2 (08:30→20:22)
[2017-06-16] MEDS: DIVALPROEX SODIUM 500 MG TABLET.DR PO SCH ×2 (08:31→20:22)
[2017-06-16] MEDS ORDERED: QUEtiapine FUMARATE 100 MG TABLET PO SCH ×3 (09:00→21:00)
[2017-06-17] MEDS: PANTOPRAZOLE SODIUM 40 MG in NORMAL SALINE 100 ML IV SCH (01:14)
[2017-06-17] MEDS: PIPERACILLIN SODIUM/TAZOBACTAM 3.375 GM in DEXTROSE 5 % IN WATER 100 ML IV SCH ×4 (04:00→11:51)
--- NOTE | 2017-06-17 05:12 | PN ---
<Madeline Bruce - Last Filed: 06/17/17 05:12> Subjective - Date and Time Seen Date: 06/17/17 Time: 04:31 Subjective Narrative: denies abdominal pain, n/v. Objective - Review of Systems Generalized/Overall Review: Reports: No Symptoms Reported EENTM: Reports: No Symptoms Reported Respiratory: Reports: No Symptoms Reported Cardiac: Reports: No Symptoms Reported Abdominal: Reports: No Symptoms Reported Genitourinary Symptoms: Reports: No Symptoms Reported Musculoskeletal Complaints: Reports: No Symptoms Reported Neurological: Reports: No Symptoms Reported Skin: Reports: No Symptoms Reported Endocrine: Reports: No Symptoms Reported Misc: All systems neg except as marked - Vitals Vitals: Last Vital Signs Temp 36.6 C 06/17/17 04:03 Pulse 77 06/17/17 04:03 Resp 18 06/17/17 04:03 BP 138/81 06/17/17 04:03 Pulse Ox 93 06/17/17 04:03 - Abnormal Lab Findings Abnormal Lab Findings: Abnormal Lab Results 06/16/17 06/16/17 06/16/17 Range/Units 05:41 05:41 05:41 RBC 4.25 L (4.7-6.0) M/mm3 Hgb 13.4 L (13.5-18.0) gm/dL Hct 39.0 L (42.0-52.0) % MCH 31.5 H (27-31) pg MPV 11.1 H (6.0-9.5) fl Immature Gran % (Auto) 1.20 H (0.001-0.429) % Immature Gran # (Auto) 0.10 H (0.000-0.0310) K/mm3 Neutrophils % 37.6 L (42-75.0) % Monocytes % 12.7 H (0.0-9) % Lymphocytes # 3.8 H (1.5-3.5) k/mm3 Monocytes # 1.1 H (0.0-1.0) k/mm3 ESR 26 H (0-10) mm/hr BUN 4 L (6-23) mg/dL BUN/Creatinine Ratio 4.7 L (9.0-21.6) C-Reactive Prot, Quant 4.2 H (0.0-0.9) mg/dL Total Protein 6.1 L (6.2-8.2) gm/dL Albumin 2.3 L (3.4-5.0) gm/dl - Exam Constitutional: Present: Alert, Cooperative, No distress ENT Exam: Present: hearing grossly normal Neck: Present: full range of motion, supple Respiratory: Present: normal breath sounds, no respiratory distress, no accessory muscle use Cardiovascular/Chest: Present: normal peripheral pulses, regular rate, rhythm Abdomen: Present: soft, tender - RUQ, RLQ and epigastric tender to palpation as patient initially winced when palpation however when asked if this it was tender in these areas, patient declined. /Rectal: Present: Exam deferred Extremity: Present: non-tender, no calf tenderness Skin Exam: Present: normal color, warm/dry, no cyanosis Assessment/Plan Plan Narrative: Small Bowel Obstruction - currently on full liquid diet - NG tube removed 06/15/17 - abdomen pain has progressed from mild epigastric pain (06/16/17 in the am) to RUQ, RLQ and epigastric pain to palpation this am - however pt denies pain to these even though he winced when the areas were palpated. - concerning that ab xray from 06/16/17 showed worsening SBO and labs showed elevated ESR - recheck ab xray this am and labs - if xray and labs continue to worsen, pt will likely need transfered to [facility] for GI service. - Protonix 40 mg IV daily - Dr Gee with General Surgery following - appreciate - gastric occult positive - zosyn ordered for possible bowel infection - awaiting am lab UTI - ruled out, urine culture did not grow anything. TBI - continue home meds per [facility] orders Code status: Full Code VTE: SCDs while in bed. No lovenox due to GI Bleeding GI proph: IV protonix - Problems/Diagnosis (1) Small bowel obstruction Problem: Acute (2) UTI (urinary tract infection) Problem: Acute QualifierTitle: Urinary tract infection type: acute cystitis Hematuria presence: with hematuria Qualified Code(s): N30.01 - Acute cystitis with hematuria (3) TBI (traumatic brain injury) Problem: Chronic QualifierTitle: Encounter type: sequela (4) GERD (gastroesophageal reflux disease) Problem: Chronic QualifierTitle: Esophagitis presence: esophagitis presence not specified Qualified Code(s): K21.9 - Gastro-esophageal reflux disease without esophagitis (5) Seizures Problem: Chronic <LoganHolland whitmore - Last Filed: 06/17/17 07:48> Subjective Subjective Narrative: Patient feels fine. Labs fine. Films worse. Have discussed with mom and patient. Ok with transfer to [facility]. Have initiated call to start transfer process. Will most likely need both surgery and neurosurgery. Objective - Vitals Vitals: Last Vital Signs Temp 36.9 C 06/17/17 07:28 Pulse 73 06/17/17 07:28 Resp 16 06/17/17 07:28 BP 133/69 06/17/17 07:28 Pulse Ox 94 06/17/17 07:28 - Abnormal Lab Findings Abnormal Lab Findings: Abnormal Lab Results 06/17/17 06/17/17 06/17/17 Range/Units 05:33 05:33 05:33 RBC 4.37 L (4.7-6.0) M/mm3 Hct 39.9 L (42.0-52.0) % MCH 31.8 H (27-31) pg MPV 10.7 H (6.0-9.5) fl Immature Gran % (Auto) 2.30 H (0.001-0.429) % Immature Gran # (Auto) 0.19 H (0.000-0.0310) K/mm3 Neutrophils % 40.9 L (42-75.0) % Monocytes % 13.2 H (0.0-9) % Monocytes # 1.1 H (0.0-1.0) k/mm3 ESR 16 H (0-10) mm/hr BUN 5 L (6-23) mg/dL BUN/Creatinine Ratio 5.9 L (9.0-21.6) C-Reactive Prot, Quant 2.5 H (0.0-0.9) mg/dL Albumin 2.6 L (3.4-5.0) gm/dl Assessment/Plan - Problems/Diagnosis (1) Partial small bowel obstruction Problem: Acute (2) Seizures Problem: Chronic (3) TBI (traumatic brain injury) Problem: Chronic Qualifiers: Encounter type: sequela
[2017-06-17 05:45] LABS: Hematocrit 39.9 % (42.0-52.0); Hemoglobin 13.9 gm/dL (13.5-18.0); Mean Cell Volume 91.3 fl (78-100); Mean Corpuscular Hemoglobin 31.8 pg (27-31); Mean Corpuscular Hgb Conc 34.8 g/dl (32-36); Mean Platelet Volume 10.7 fl (6.0-9.5); Neutrophil # 3.3 K/mm3 (1.3-6.0); Neutrophil % 40.9 % (42-75.0); Platelet Count 295 K/mm3 (150-450); Red Blood Count 4.37 M/mm3 (4.7-6.0); Red Cell Distribution Width 12.7 % (11.5-14.0); White Blood Count 8.1 K/mm3 (4.0-10.5)
[2017-06-17 05:58] LABS: Albumin * 2.6 gm/dl (3.4-5.0); BUN/Creatinine Ratio 5.9 (9.0-21.6); Bilirubin, Total 0.7 mg/dL (0.0-1.1); CRP 2.5 mg/dL (0.0-0.9); Ca. Corrected For Albumin 9.8 mg/dL (8.4-10.2); Carbon Dioxide 26.4 mmol/L (24-32.6); Potassium 3.4 mmol/L (3.4-4.6); Total Protein 6.8 gm/dL (6.2-8.2)
[2017-06-17] MEDS: HALOPERIDOL LACTATE 2 MG/ML BTL SL SCH (07:17)
[2017-06-17] MEDS ORDERED: NORMAL SALINE IV ONE ×2 (07:23→08:00)
[2017-06-17] MEDS ORDERED: VALPROIC ACID IV ONE ×2 (07:23→08:00)
[2017-06-17] MEDS ORDERED: QUEtiapine FUMARATE 100 MG TABLET RC SCH ×2 (09:00→21:00)
[2017-06-17] MEDS ORDERED: POTASSIUM CHLORIDE 20 MEQ in DEXTROSE 5%-NORMAL SALINE 990 ML IV SCH (11:15)
--- NOTE | 2017-06-17 13:40 | DS ---
(1) Partial small bowel obstruction Problem: Acute (2) Seizures Problem: Chronic (3) TBI (traumatic brain injury) Problem: Chronic Qualifiers: Encounter type: sequela Description of Stay: Treated conservatively. Seemed to improve. Eventually after refeeding, he still felt ok, bloodwork was still ok, but abdominal films worsened. The tip of his shunt seems to end right where the obstruction is as well. For this reason, I have arranged transfer to a higher level of care. The surgeon at the [facility] has agreed to accept. Procedures Performed: none Discharge Disposition: [facility] Disposition: [facility] Condition: Good Discharge Activity: Activity as tolerated Discharge Diet: NPO Consultation Done:: Dr. Garcia and Dr. Gee, general surgery Problem Oriented Discharge Instructions to Patient/Family: Small Bowel Obstruction, [place] Complete Home Medications List: Complete Home Medication List: Benzocaine/Menthol [Cepacol Sore Throat] 1 each MM PRN PRN #0 box 06/17/17 Haloperidol Lactate [Haldol Oral Concentrate] 2 mg SL Q8H btl 06/17/17 Ondansetron HCl/Pf [Zofran] 4 mg IV Q4H PRN #0 vial 06/17/17 Pantoprazole Sodium [Protonix] 40 mg IV Q24H vial 06/17/17 Piperacillin Sodium/Tazobactam [Zosyn] 3.375 gm IV Q8H vial 06/17/17 QUEtiapine FUMARATE [Seroquel] 100 mg RC QAM tablet 06/17/17 QUEtiapine FUMARATE [Seroquel] 300 mg RC HS tablet 06/17/17 Tetracaine/Benzocaine/Butamben [Cetacaine] 1 spray TP PRN PRN #0 btl 06/17/17 Valproic Acid (As Sodium Salt) [Depacon] 500 mg IV BID@0800,2000 vial 06/17/17
[2017-06-17 14:42] VITALS: BP 125/59
[2017-06-17] MEDS ORDERED: NORMAL SALINE IV SCH (20:00)
[2017-06-17] MEDS ORDERED: VALPROIC ACID IV SCH (20:00)
== END 2017-06-17 14:20 | disposition short-term general hospital (02) | DRG 389 ==
LOC: ER 21:00 → EDLOC 06-12 00:26 → MS 06-12 00:26 → OBSVTOIN 06-12 01:20
PROVIDERS: ADMIT Nurse Practitioner Critical Care Medicine; ATTEND Allergy & Immunology
DX: K56.5 Intestinal adhesions [bands] with obstruction (postinfection) (principal); N30.01 Acute cystitis with hematuria; K21.9 Gastro-esophageal reflux disease without esophagitis; R56.9 Unspecified convulsions; F17.210 Nicotine dependence, cigarettes, uncomplicated; Z85.841 Personal history of malignant neoplasm of brain; Z87.820 Personal history of traumatic brain injury; Z98.2 Presence of cerebrospinal fluid drainage device
CPT/HCPCS: 36415; 74000; 74020; 74177; 80053; 81001; 82272; 85007; 85025; 85652; 86140; 87040; 87086; 96374; 96375; 99284; J2405

== ENCOUNTER 2017-06-26 18:11 | Emergency (ER) | payer MEDICARE, OTHER ==
--- NOTE | 2017-06-26 19:29 | ERNOTE ---
Upper Extremity HPI - Narrative Date of Service: 06/26/17 - General Extremities Pain Location: elbow: right Time Seen by Provider: 06/26/17 19:28 Source: patient, family, RN notes reviewed Exam Limitations: other - mental impairment - Immun/Allergies/Home Medications Immunizations: IMMUNIZATION HX Immunizations Up to Date Yes History of Influenza Vaccine No Hx Pneumococcal Vaccination No Allergies/Adverse Reactions: Allergies Allergy/AdvReac Type Severity Reaction Status Date / Time No Known Allergies Allergy Verified 06/26/17 18:24 Home Medications: HOME MEDICATIONS Benzocaine/Menthol [Cepacol Sore Throat] 1 each MM PRN PRN #0 box 06/17/17 [ Last Taken Unknown] Divalproex Sodium [Depakote] 1,250 mg PO DAILY 06/26/17 [Last Taken Unknown] HYDROcodone/ACETAMINOPHEN [[place] 5-325] 1 - 2 tab PO Q6H PRN #20 tab 06/26/17 [ Last Taken Unknown] Haloperidol Lactate [Haldol Oral Concentrate] 20 mg SL BID 06/26/17 [Last Taken Unknown] QUEtiapine FUMARATE [Seroquel] 400 mg RC QAM 06/26/17 [Last Taken Unknown] QUEtiapine FUMARATE [Seroquel] 500 mg RC HS 06/26/17 [Last Taken Unknown] - History of Present Illness Narrative: Marino is a 47 year old male brought to the ED by his mother for an elbow injury that occurred 2 days ago. He fell and landed on the right elbow. His pain has not improved since. He is right handed. He is a poor historian due to his history of TBI. He has had Tylenol for pain. Date (Duration): 06/24/17 Location of Incident: home Method of Injury: Reports: fell Reason for Fall: Reports: unknown Other Injuries: Reports: none Review of Systems - Review of Systems Constitutional: Absent: recent illness, fever EYE: Present: no symptoms reported ENT: Present: no symptoms reported Respiratory: Absent: shortness of breath, cough Cardiology: Absent: chest pain, syncope Gastrointestinal/Abdominal: Absent: vomiting, diarrhea, abdominal pain Genitourinary: Present: no symptoms reported Musculoskeletal: Present: joint pain, joint swelling. Absent: back pain, neck pain Skin: Absent: lesions, lumps, change in color Neurological: Present: pre-existing deficit. Absent: weakness, numbness, tingling Endocrine: Present: no symptoms reported Hematologic/Lymphatic: Absent: easy bruising, easy bleeding Psych: Present: no symptoms reported - Patient's Past Medical History Patient History - Medical: Seizures Patient History - Cardiac/Respiratory: No pertinent hx Patient History - Cancer: Brain Patient History - Surgical Procedures: Cancer Surgery, Other Patient History - Other: None - Family History Mother Family History - Medical: No pertinent hx Family History - Cardiac/Respiratory: No pertinent hx Family History - Cancer: No pertinent family hx Father Family History - Medical: No pertinent hx Family History - Cardiac/Respiratory: No pertinent hx Family History - Cancer: Melanoma, Other Maternal grandmother Family History - Medical: Family History - Cardiac/Respiratory: No pertinent hx Family History - Cancer: No pertinent family hx Maternal grandfather Family History - Medical: Family History - Cardiac/Respiratory: No pertinent hx Family History - Cancer: Leukemia Paternal grandmother Family History - Medical: Family History - Cardiac/Respiratory: No pertinent hx Family History - Cancer: Stomach Paternal grandfather Family History - Medical: Family History - Cardiac/Respiratory: No pertinent hx Family History - Cancer: No pertinent family hx - Social History Living Situations: home Abuse History: No History of abuse Psych History: No pertinent hx Smoking Status: Current every day smoker Have you smoked in the past 12 months: Yes Alcohol Use: none Drug Use: none - Immunizations Immunizations Up to Date: Yes Hx Pneumococcal Vaccination: No History of Influenza Vaccine: No Physical Exam - Physical Exam General Appearance: Present: wd/wn, alert, no apparent distress Head Exam: Present: normal inspection Respiratory: Present: no respiratory distress, no accessory muscle use Cardiovascular/Chest: Present: normal peripheral pulses Peripheral Pulses: N=norm/S=strong/W=weak/B=bound/A=absent: Radial (R): Strong Extremity Exam: Present: decreased range of motion - Right elbow, joint swelling - Right elbow, extremity edema - Right elbow, forearm, hand. Absent: joint redness Neurological Exam: Present: alert, normal mood/affect, no motor/sensory deficits Skin Exam: Present: normal color, warm/dry ED Progress - Vital Signs Patient's Vital Signs:: I have reviewed the patient's vital signs. Vital Signs: Vital Signs 06/26/17 06/26/17 18:19 19:24 Temperature 37.0 C 37.0 C Pulse Rate 94 72 Respiratory 16 16 Rate Blood Pressure 121/77 120/69 O2 Sat by Pulse 96 97 Oximetry - X-Ray X-Ray #1 X-Ray: elbow Interpretation: Reviewed by me X-ray Comments: Technique: Right elbow series (3 views) Comparison:None. Findings: There is a complete, mildly displaced intra-articular fracture involving the proximal ulna, that involves approximately 50% of the ulnohumeral joint. There is soft tissue swelling and a elbow joint effusion. No other fractures noted. No dislocation. Alignment is anatomic. Mineralization is normal. There is a small distal triceps enthesophyte. No destructive osseous lesions. Impression: Complete, mildly displaced, intra-articular fracture involving the proximal ulna, as above. Electronically signed by Marquis Skinner D.O.. - Progress/Reassessment Chief Complaint: Upper Extremity Injury/Problem Progress:: Improved Procedures Location: Right elbow Pre-Proc Neuro Vasc Exam: normal Hand-Made Type: ocl Splint: long arm Alignment good: Yes Splint applied by: Nurse Post-Proc Neuro Vasc Exam: normal Complications: Pt ashley procedure well Plan - Plan Plan: Dr. Torres contacted regarding fracture. Patient (mother) is to call the ortho office tomorrow to arrange follow up. Departure Clinical Impression: Fracture of proximal ulna, closed Qualifiers: Encounter type: initial encounter Fracture morphology: unspecified fracture morphology Laterality: right Qualified Code(s): S52.001A - Unspecified fracture of upper end of right ulna, initial encounter for closed fracture - Departure Disposition: Home Follow Up Needed Condition: Stable Instructions: Ulnar Fracture Additional Instructions: Contact orthopedics tomorrow morning to arrange follow up Leave splint in place May need a laxative - pain medication can cause constipation Referrals: Mayco Torres MD [Staff Physician] - Prescriptions: HYDROcodone/ACETAMINOPHEN [[place] 5-325] 1 - 2 tab PO Q6H PRN #20 tab PRN Reason: Pain
--- OUTSIDE RECORDS SUMMARY | 2017-06-26 19:34 | XMS REPORT | Clinical Summary ---
:1970 Author Organization [employer] [place] [address] Care Team Providers Name Role Phone Unavailable Primary Care Provider Unavailable Source Comments This disclosure is being made pursuant to the [employer] program and maynot contain all information available regarding this patient.[employer] Allergies Not on File Current Medications Be aware that medications may not be up to date as of this document. Alwaysverify current medications with the patient. Not on file Active Problems Not on file Social History Tobacco Use Types Packs/Day Years Used Date Never Assessed Sex Assigned at Date Recorded Not on file Last Filed Vital Signs Not on file Plan of Treatment Health Maintenance Due Date Last Done Comments Retired-Pertussis Vaccine Adult 1989 Retired-Tetanus Vaccine Adult 1989 Retired-INFLUENZA VACCINE 07/29/2015 Results Not on filefrom Last 3 Months
[2017-06-26] MEDS ORDERED: HYDROcodone/ACETAMINOPHEN 1 EACH TABLET PO ONE ×2 (19:37→20:04)
[2017-06-26] MEDS ORDERED: HYDROcodone/ACETAMINOPHEN 1 EACH TABLET ONE ×2 (19:43→20:11)
[2017-06-26 20:13] VITALS: BP 133/69
== END 2017-06-26 20:17 | disposition home or self-care (01) ==
LOC: ER 18:11
PROC: 2W38X1Z Immobilization of Right Upper Extremity using Splint (ICD-10-PCS; principal; 2017-06-26)
DX: S52.001A Unspecified fracture of upper end of right ulna, initial encounter for closed fracture (principal); Z85.841 Personal history of malignant neoplasm of brain; W19.XXXA Unspecified fall, initial encounter; Y92.009 Unspecified place in unspecified non-institutional (private) residence as the place of occurrence of the external cause; F17.200 Nicotine dependence, unspecified, uncomplicated

== ENCOUNTER 2017-06-28 12:07 | Day surgery (SDC) | payer MEDICARE, OTHER ==
[~2017-06-28 12:07] MED LIST: HYDROmorphone HCL 2 MG/ML VIAL IV PRN; RINGER'S SOLUTION,LACTATED 1,000 ML IV PRN; ceFAZolin SODIUM 1 GM VIAL IV PRN; oxyCODONE HCL/ACETAMINOPHEN 1 TAB TABLET PO PRN
--- OUTSIDE RECORDS SUMMARY | 2017-06-28 12:11 | XMS REPORT | Clinical Summary ---
:1970 Author Organization [employer] [place] [address] Care Team Providers Name Role Phone Unavailable Primary Care Provider Unavailable Source Comments This disclosure is being made pursuant to the [employer] program and maynot contain all information available regarding this patient.[employer] Allergies Not on File Current Medications Be [...] Health Maintenance Due Date Last Done Comments Tetanus/Pertussis (1 - Tdap) 1989 INFLUENZA IMMUNIZATION (#1) 2017 Results Not on filefrom Last 3 Months
--- NOTE | 2017-06-28 15:27 | OR ---
Operative Report - Dictated Report Narrative: Date: 06/28/2017 Physician: Renny Juárez M.D. [employer]ace Supervisor: Evan Little PA-C Preoperative diagnosis: Right intra-articular olecranon fracture Postoperative diagnosis: Right intra-articular olecranon fracture Procedure: Open reduction internal fixation of right olecranon fracture Anesthesia: General Plus regional Complications: None Estimated blood loss: Minimal Tourniquet time: 90 Minutes at 250 mmHg Specimens: None Retained implants: Abdi and nephew 6.5 mm x 110 mm cannulated partially threaded screw and washer, 18-gauge stainless steel wire Drains: None Indications: Marino Is a 47 year-old male who fell at home and sustained a right displaced olecranon fracture. He was initially seen in the emergency department and placed in a temporary splint and then followed up in the orthopedic clinic for further evaluation. Plain films from the emergency department demonstrated a simple, displaced, intra-articular fracture of the right olecranon. Given the patient's age, activity level, and displacement of the fracture with intra- articular involvement I recommended open reduction internal fixation. The risks , benefits, and alternatives were discussed in clinic. The risks being bleeding , infection, nerve, tendon, blood vessel injury, malunion/nonunion, stiffness, persistent pain, wound complications, and symptomatic implants. Consent was obtained in the clinic. Procedure: After marking the correct extremity in the preoperative holding area, a timeout was performed in the operating room. General followed by regional anesthetic was performed by the nurse administrative services coordinator without complication. The patient was then placed in the left lateral decubitus position on a beanbag with the operative arm supported by a bone foam ramp. IV antibiotics consisting of 2 g of Ancef were administered prior to the procedure. A well-padded tourniquet was applied to the operative upper arm. The arm was exsanguinated and the tourniquet was inflated to 250 mmHg. the right upper extremity was then prepped and draped in usual sterile fashion. A longitudinal incision was made over the olecranon just medial to the midline to avoid excessive tension on the wound. This was approximately 12 cm in length. Comminution blunt dissection electrocautery was carried down through the subcutaneous tissue to the level of the proximal ulna. The fracture site was identified and a sharp knife was utilized to debride the fracture edges to obtain good fracture leads. The fracture was held open with a [place] elevator and a pituitary rongeur was used to clean out the fracture site and debrided of all hematoma and soft tissue. The fracture was then reduced using the distal humerus as a template and utilizing 2 [id number] bone reduction clamps to hold our reduction. Our reduction was confirmed using the mini C-arm which demonstrated good reduction and less than 2 mm articular gap. Given the simple nature of the fracture without comminution we chose to proceed with a tension band construct utilizing a partially threaded 6.5 modular cannulated screw. The terminally threaded guidewire was advanced from the tip of the olecranon across the fracture site and into the ulnar shaft using mini C-arm to confirm its position. This was taken across the fracture site by at least 6 cm and our screw length was measured to be 110 mm. The 5.5 mm cannulated drill was then advanced down over the guidewire and drilled to a depth of 115 mm. A 110 mm cannulated partially threaded screw with a washer was then advanced across the fracture site and left about 5 mm proud in order to place our tension wire. Next we turned our attention to placing our tension wire. A site approximately 4 cm distal to the fracture was chosen and subperiosteal dissection was carried out on the dorsal and volar aspect of the ulna and a hole was drilled across the ulna with a 1.5 mm drill bit. An 18-gauge stainless steel wire was then passed through the drill hole and then crossed and passed up and around the screw underneath the washer and then tightened down on both sides using heavy needle drivers. Once the wire was appropriately tensioned the excess wire was removed with the wireless operator and the twisted ends were bent and flatten down to the surface of the ulna so as not to be prominent. We then advanced our 6.5 mm screw with a washer down to bone being careful not to over compress the fracture. We then confirmed the position of our implants and the our fracture reduction on mini C-arm and noted our reduction to be near anatomic with minimal articular gapping at the fracture site. At this point the wounds were copiously irrigated with normal saline. The deep fascia over the ulna was closed with running 0 Vicryl suture. Subcutaneous tissues tissue was then closed with interrupted 3-0 Vicryl. The skin was closed with interrupted 4-0 nylon and sterile dressings consisting of Xeroform, 4 x 4, soft roll, and a posterior long-arm splint were applied.. All sponge, needle, blade, and instrument counts were correct prior to closing the wounds. The patient was awoken and transferred to the postanesthesia care unit in stable condition.
--- NOTE | 2017-06-28 15:28 | OR ---
Anesthesia Procedure Note - Anesthesia Procedure Note Date of Service: 06/28/17 Narrative: Vital Signs - Last Taken Temp 36.7 C 06/28/17 15:20 Pulse 82 06/28/17 15:20 Resp 22 H 06/28/17 15:20 BP 138/78 06/28/17 15:20 Pulse Ox 95 06/28/17 15:20 O2 Oxygen Delivery Method Nasal Cannula 06/28/17 15:25 ANESTHESIA PROCEDURE NOTE Date of Procedure: 06/28/2017. Time of procedure: 1255. Performed by: Chester Jeffrey CRNA Tool Planer Set Up Operator: None. Preprocedure diagnosis: Right olecranon fracture. Post procedure diagnosis: Same. Procedure: Right ultrasound guided supra clavicular nerve block for postoperative analgesia. Indications: The patient is a 47 -year-old male. Findings: See below. Details of the procedure: The tissue over the intended target site was cleansed with ChloraPrep. 1 ml Lidocaine 1 % was infiltrated to the skin and subcutaneous tissue. Under sterile technique and ultrasound guidance a 21-gauge block needle was inserted to the right brachial plexus nerve bundle lateral to the axillary artery. 30 mL's of 0.5% bupivacaine plus epinephrine 1 200,000 was injected after negative aspiration for blood. Spread of local anesthetic around the brachial plexus was observed under real-time ultrasound. The needle was removed intact. No complications were noted. The images were retained in the Hospital medical database . EBL: Minimal. Fluids: N/A. Specimen: N/A. Post procedure condition: The patient tolerated the procedure well. No complications were noted. Thank you for this consultation. Chester Jeffrey CRNA
[2017-06-28 16:47] VITALS: BP 144/75
== END 2017-06-28 12:08 | disposition home or self-care (01) ==
LOC: AMB 12:07
PROVIDERS: ATTEND Orthopaedic Surgery
PROC: 3E0T3BZ Introduction of Anesthetic Agent into Peripheral Nerves and Plexi, Percutaneous Approach (ICD-10-PCS; 2017-06-28)
PROC: 0PSK04Z Reposition Right Ulna with Internal Fixation Device, Open Approach (ICD-10-PCS; principal; 2017-06-28 13:00)
DX: S52.021A Displaced fracture of olecranon process without intraarticular extension of right ulna, initial encounter for closed fracture (principal); W10.8XXA Fall (on) (from) other stairs and steps, initial encounter; F17.210 Nicotine dependence, cigarettes, uncomplicated

== ENCOUNTER 2017-06-30 11:02 | Inpatient (IN) | payer MEDICARE, OTHER ==
[2017-06-30] MEDS ORDERED: ONDANSETRON HCL/PF 2 MG/ML VIAL IV ONE (11:22)
[2017-06-30] MEDS ORDERED: NORMAL SALINE 1,000 ML IV ONE (11:22)
--- NOTE | 2017-06-30 11:35 | ERNOTE ---
Abdominal HPI - General Chief Complaint: Nausea/Vomiting Time Seen by Provider: 06/30/17 11:05 Source: patient, family Exam Limitations: clinical condition - Immun/Allergies/Home Medications Immunizatons: IMMUNIZATION HX Immunizations Up to Date Yes History of Influenza Vaccine No Hx Pneumococcal Vaccination No Allergies/Adverse Reactions: Allergies No Known Allergies Allergy (Verified 06/27/17 16:29) Home Medications: HOME MEDICATIONS Benzocaine/Menthol [Cepacol Sore Throat] 1 each MM PRN 06/27/17 [Last Taken Unknown] Divalproex Sodium [Depakote] 250 mg PO DAILY 06/27/17 [Last Taken Unknown] HYDROcodone/ACETAMINOPHEN [Hydrocodon-Acetaminophen 5-325] 2 each PO Q6H PRN [Last Taken Unknown] Haloperidol 20 mg PO BID 06/27/17 [Last Taken Unknown] QUEtiapine FUMARATE [Seroquel] 400 mg PO DAILY 06/27/17 [Last Taken Unknown] QUEtiapine FUMARATE [Seroquel] 500 mg PO HS 06/27/17 [Last Taken Unknown] Oxybutynin Chloride [Ditropan] 10 mg PO HS 06/28/17 [Last Taken Unknown] oxyCODONE HCL/ACETAMINOPHEN [Percocet 5 MG/325 MG] 2 tab PO Q4H PRN #60 tablet 06/28/17 [Last Taken Unknown] - History of Present Illness Narrative: Patient was admitted to this facility 06/11- for small bowel obstruction, improved but was transfer to [facility] for concerns about the obstruction being in the area where his shunt ended. He was discharged from there 06/20 without surgical intervention. On 06/26 the patient fell and fractured his right elbow. He had an outpatient repair of the fracture on 06/28 and was started on percocet post op which he tolerated well during that day and the next. Last night patient started to vomit and has had about 4-5 emesis with brown stool color, no blood, last BN two days ago, mild abdominal pain. Parents are concerned about another bowel obstruction. Patient was treated for brain cancer at age 19 with surgery and has had traumatic brain injury, reduced mental capacity, and seizures since, no prior bowel obstructions, patient had feeding tube after after brain surgery, but no other abdominal surgeries Review of Systems - Review of Systems Constitutional: Present: recent illness. Absent: fever ENT: Present: nasal drainage. Absent: sore throat Respiratory: Present: shortness of breath - slight. Absent: cough Cardiology: Absent: chest pain Gastrointestinal/Abdominal: Present: See HPI, nausea, vomiting, abdominal pain. Absent: diarrhea Genitourinary: Present: no symptoms reported Neurological: Absent: headache - Patient's Past Medical History Patient History - Medical: GERD, Seizures Patient History - Cardiac/Respiratory: No pertinent hx Patient History - Cancer: Brain, Surgical Treatment Patient History - Surgical Procedures: Cancer Surgery, Other, Orthopedic Patient History - Other: None - Family History Mother Family History - Medical: No pertinent hx Family History - Cardiac/Respiratory: No pertinent hx Family History - Cancer: No pertinent family hx Father Family History - Medical: No pertinent hx Family History - Cardiac/Respiratory: No pertinent hx Family History - Cancer: Melanoma, Other Maternal grandmother Family History - Medical: Family History - Cardiac/Respiratory: No pertinent hx Family History - Cancer: No pertinent family hx Maternal grandfather Family History - Medical: Family History - Cardiac/Respiratory: No pertinent hx Family History - Cancer: Leukemia Paternal grandmother Family History - Medical: Family History - Cardiac/Respiratory: No pertinent hx Family History - Cancer: Stomach Paternal grandfather Family History - Medical: Family History - Cardiac/Respiratory: No pertinent hx Family History - Cancer: No pertinent family hx - Social History Living Situations: home Abuse History: No History of abuse Psych History: No pertinent hx, Current tx/ever been on anti-depressants or anti -anxiety meds Smoking Status: Current every day smoker Have you smoked in the past 12 months: Yes Alcohol Use: none Drug Use: other - Immunizations Immunizations Up to Date: Yes Hx Pneumococcal Vaccination: No History of Influenza Vaccine: No Physical Exam - Physical Exam General Appearance: Present: wd/wn, alert, no apparent distress, anxious Ears, Nose, Throat: Present: normal pharynx Respiratory: Present: no respiratory distress, normal breath sounds, no accessory muscle use, lungs clear Cardiovascular/Chest: Present: regular rate, rhythm, no murmur Gastrointestinal/Abdominal: Present: tenderness - mild througout, abnormal bowel sounds - decreased, tympanic, distended Extremity Exam: Present: normal except - - right arm in splint, normal fingers, no swelling, normal sensation and movement, good cap refill, no edema Neurological Exam: Present: alert, normal mood/affect Skin Exam: Present: normal color, warm/dry ED Progress - Results and Orders Patient's Lab Results:: I have reviewed the patient's lab results. - Vital Signs Patient's Vital Signs:: I have reviewed the patient's vital signs. Vital Signs: Vital Signs 06/30/17 11:07 Temperature 36.4 C L Pulse Rate 131 H Respiratory 25 H Rate Blood Pressure 115/84 O2 Sat by Pulse 98 Oximetry - EKG EKG: NSR - sinustachy, other - no acute changes except for rate EKG read: Interp. by me - X-Ray X-Ray #1 X-Ray: abdomen - small bowel obstruction Interpretation: Reviewed by me X-Ray #2 X-Ray: chest - bowel obstruction, decreased lung volume Interpretation: Reviewed by me - Progress/Reassessment Chief Complaint: Nausea/Vomiting Progress Note-Subjective: 06/30/17 12:29 discussed with amelie Drake to admit here, try conservative treatment with IV fluids, consider dulcolax, amelie to hold off CT, amelie to hold off on NG tube for now as patient did not tolerate it well last time and is mentally challenged 06/30/17 12:48 discussed plan with patient and family, agreed to admission, patient appears more comfortable, no vomiting here, HR remains in 110's, on review of chart of prior admission patient HR elevated about 100 for good part of the visit (related to agitation) 06/30/17 12:49 discussed with amelie Rodas to admit 06/30/17 12:[address] Juárez (ortho) to notify of admission, amelie to give small dose of toradol Departure - Departure Clinical Impression: Small bowel obstruction, Seizures TBI (traumatic brain injury) Qualifiers: Encounter type: sequela Loss of consciousness presence/duration: with LOC of unspecified duration Qualified Code(s): S06.9X9S - Unspecified intracranial injury with loss of consciousness of unspecified duration, sequela Fracture of proximal ulna, closed Qualifiers: Encounter type: subsequent encounter Fracture morphology: unspecified fracture morphology Laterality: right Fracture healing: with routine healing Qualified Code(s): S52.001D - Unspecified fracture of upper end of right ulna, subsequent encounter for closed fracture with routine healing Disposition: [facility] Condition: Stable
--- OUTSIDE RECORDS SUMMARY | 2017-06-30 11:35 | XMS REPORT | Clinical Summary ---
:1970 Author Organization [employer] [place] [address] Care Team Providers Name Role Phone Unavailable Primary Care Provider Unavailable Source Comments This disclosure is being made pursuant to the [employer] program and maynot contain all information available regarding this patient.[employer] Allergies Not on File Current Medications Be [...]
[2017-06-30] MEDS ORDERED: ONDANSETRON HCL/PF 2 MG/ML VIAL ONE (11:37)
[2017-06-30 11:41] LABS: Hematocrit 50.7 % (42.0-52.0); Hemoglobin 17.6 gm/dL (13.5-18.0); Mean Cell Volume 92.3 fl (78-100); Mean Corpuscular Hemoglobin 32.1 pg (27-31); Mean Corpuscular Hgb Conc 34.7 g/dl (32-36); Mean Platelet Volume 11.2 fl (6.0-9.5); Platelet Count 370 K/mm3 (150-450); Red Blood Count 5.49 M/mm3 (4.7-6.0); Red Cell Distribution Width 13.8 % (11.5-14.0); White Blood Count 14.6 K/mm3 (4.0-10.5)
[2017-06-30 11:43] LABS: Total Cells Counted 100
[2017-06-30] MEDS ORDERED: MORPHINE SULFATE 4 MG/ML SYRG IV ONE (11:43)
[2017-06-30] MEDS ORDERED: MORPHINE SULFATE 4 MG/ML SYRG ONE (11:44)
[2017-06-30 12:05] LABS: Band 18 % (0-2.0); Eosinophil 1 % (0-3); Lymphocyte 4 % (20-51); Monocyte 13 % (0-9); Neutrophil 64 % (42-75); Neutrophil # 9.3 K/mm3 (1.3-6.0); Platelet Estimate Normal (NORMAL)
[2017-06-30 12:06] LABS: RBC Morphology Normal (NORMAL)
[2017-06-30 12:07] LABS: Toxic Granulation Trace
[2017-06-30 12:41] LABS: ALT 15 U/L (19-67); AST 27 U/L (0-48); Albumin * 2.8 gm/dl (3.4-5.0); Alkaline Phosphatase * 71 U/L (50-170); Amylase * 55 U/L (25-115); Anion Gap 22.9 mmol/L (6.8-13.8); BUN/Creatinine Ratio 7.3 (9.0-21.6); Bilirubin, Total 1.2 mg/dL (0.0-1.1); Blood Urea Nitrogen 13 mg/dL (6-23); Ca. Corrected For Albumin 9.8 mg/dL (8.4-10.2); Calcium * 9.2 mg/dL (7.9-10.9); Carbon Dioxide 18.1 mmol/L (24-32.6); Chloride 100 mmol/L (97-106); Glucose * 146 mg/dL (70-110); Lipase 101 U/L (73-393); Sodium 136 mmol/L (132-142)
[2017-06-30 12:42] LABS: Troponin I Less than 0.017 ng/ml (0.00-0.10)
[2017-06-30] MEDS ORDERED: KETOROLAC TROMETHAMINE 15 MG/ML VIAL IV PRN (12:58)
[2017-06-30] MEDS ORDERED: ONDANSETRON HCL/PF 2 MG/ML VIAL IV PRN (12:58)
[2017-06-30] MEDS ORDERED: PANTOPRAZOLE SODIUM 40 MG in NORMAL SALINE 100 ML IV SCH (13:00)
--- OUTSIDE RECORDS SUMMARY | 2017-06-30 13:16 | XMS REPORT | Clinical Summary ---
:1970 Author Organization [employer] [place] [address] Care Team Providers Name Role Phone Unavailable Primary Care Provider Unavailable Source Comments This disclosure is being made pursuant to the [employer] program and maynot contain all information available regarding this patient.[employer] Allergies Not on File Current Medications Be [...]
[2017-06-30] MEDS ORDERED: ACETAMINOPHEN 650 MG SUPP.RECT RC PRN (14:21)
[2017-06-30] MEDS: 0.5 NORMAL SALINE 1,000 ML IV PRN ×2 (14:30→22:28)
--- NOTE | 2017-06-30 18:46 | CONS ---
HPI - General Date of Service: 06/30/17 Source: patient, family, RN/MD, RN notes reviewed, old records Exam Limitations: no limitations, other - The patient himself cannot give a detailed history but will answer yes or no questions and supplies some information - History of Present Illness Initial Comments: The patient was admitted to this hospital in May with an episode of high-grade partial small bowel obstruction. This did not resolve with nasogastric suction and he was transferred to the [facility]. There he was treated nonoperatively. The family describes a small bowel follow-through. He was having bowel movements and was discharged. The patient fell and suffered an intra-articular right olecranon fracture and underwent ORIF on 06/28/2017. He is apparently complained of some abdominal pain, his family noticed decreased appetite, and today he has been vomiting brown material. He feels distended. He has been taking hydrocodone for pain. Modifying Factors - (Worsens): Reports: eating Modifying Factors - (Improves): Reports: rest Associated Symptoms: loss of appetite, nausea, vomiting Allergies/Adverse Reactions: Allergies No Known Allergies Allergy (Verified 06/30/17 14:02) Home Medications: Home Medications Medication Instructions Recorded Last Taken Benzocaine/Menthol [Cepacol Sore 1 each MM PRN 06/27/17 06/29/17 Throat] Divalproex Sodium [Depakote] 250 mg PO DAILY 06/27/17 06/29/17 HYDROcodone/ACETAMINOPHEN 2 each PO Q6H PRN 06/27/17 06/29/17 [Hydrocodon-Acetaminophen 5-325] Haloperidol 20 mg PO BID 06/27/17 06/29/17 QUEtiapine FUMARATE [Seroquel] 400 mg PO DAILY 06/27/17 06/29/17 QUEtiapine FUMARATE [Seroquel] 500 mg PO HS 06/27/17 06/29/17 Oxybutynin Chloride [Ditropan] 10 mg PO HS 06/28/17 06/29/17 - Patient's Past Medical History Patient History - Medical: GERD, Seizures, Other - He had surgery for brain tumor in the done in [facility] with placement of a INTERIOR WALL ASSEMBLER shunt. He has some disability due to this and lives with his parents. Patient History - Cardiac/Respiratory: No pertinent hx Patient History - Cancer: Brain, Surgical Treatment Patient History - Surgical Procedures: Cancer Surgery, Other, Orthopedic Patient History - Other: None - Family History Mother Family History - Medical: No pertinent hx Family History - Cardiac/Respiratory: No pertinent hx Family History - Cancer: No pertinent family hx Father Family History - Medical: No pertinent hx Family History - Cardiac/Respiratory: No pertinent hx Family History - Cancer: Melanoma, Other Maternal grandmother Family History - Medical: Family History - Cardiac/Respiratory: No pertinent hx Family History - Cancer: No pertinent family hx Maternal grandfather Family History - Medical: Family History - Cardiac/Respiratory: No pertinent hx Family History - Cancer: Leukemia Paternal grandmother Family History - Medical: Family History - Cardiac/Respiratory: No pertinent hx Family History - Cancer: Stomach Paternal grandfather Family History - Medical: Family History - Cardiac/Respiratory: No pertinent hx Family History - Cancer: No pertinent family hx - Social History Living Situations: home Abuse History: No History of abuse Psych History: No pertinent hx, Current tx/ever been on anti-depressants or anti -anxiety meds Smoking Status: Current every day smoker Have you smoked in the past 12 months: Yes Do you dip or chew tobacco: Yes Patient requests Smoking Cessation Consult: No Initiate information on Smoking Cessation: Yes Alcohol Use: none Drug Use: other - Immunizations Immunizations Up to Date: Yes Hx Pneumococcal Vaccination: No History of Influenza Vaccine: No Procedures INTRODUCE LOCAL ANESTH IN PERIPH NRV, PLEXI, PERC (06/28/17) REPOSITION RIGHT ULNA WITH INT FIX, OPEN APPROACH (06/28/17) Medications - Medications Current Medications: Current Medications Acetaminophen (Tylenol Suppository) 650 mg RC Q6H PRN PRN Reason: fever and pain Stop: 07/30/17 14:22 Last Admin: 06/30/17 14:42 Dose: 650 mg Pantoprazole Sodium 40 mg/ (Sodium Chloride) 100 mls @ 400 mls/hr IV Q24H MCKAY Stop: 07/30/17 13:01 Last Admin: 06/30/17 13:55 Dose: 400 mls/hr Sodium Chloride (Sodium Chloride 0.45%) 1,000 mls @ 150 mls/hr IV .Q6H40M PRN PRN Reason: HYRDATION Stop: 07/30/17 14:23 Last Admin: 06/30/17 14:30 Dose: 100 mls/hr Review of Systems - Review of Systems Generalized/Overall Review: Present: Fever, Malaise EENTM: Present: No Symptoms Reported Respiratory: Present: Shortness of Breath Cardiac: Present: No Symptoms Reported Abdominal: Present: Other - He denies abdominal pain but has had nausea and vomiting and feels distended. Genitourinary: Present: No Symptoms Reported Musculoskeletal: Present: No Symptoms Reported Neurological: Present: Other - No new neurologic symptoms Physical Examination - Exam Vital Signs: Vital Signs - Last Taken Temp 37.8 C H 06/30/17 16:58 Pulse 121 H 06/30/17 14:02 Resp 18 06/30/17 14:02 BP 133/89 06/30/17 14:02 Pulse Ox 92 06/30/17 14:02 O2 Oxygen Delivery Method Room Air Constitutional: Present: Alert, Cooperative, No distress, Somnolent ENT Exam: Present: other - Dry pink mucous membranes Respiratory: Present: no respiratory distress Abdomen: Present: other - His abdomen is soft, slightly more distended than normal. There are a few cavernous bowel sounds. There is some tympany to percussion but no percussion tenderness and no discrete direct tenderness is elicited. There is no rebound. He has a well-healed incision in the right upper quadrant where the INTERIOR WALL ASSEMBLER shunt was placed and a healed gastrostomy site left upper quadrant. There are no obvious hernias Neurologic: Present: other - He has stable neurologic deficits with no new focal or lateralizing findings Appearance: Present: other - He does is off easily but does make eye contact and volunteers statements. He has been watching TV some as well. He does not appear in any distress. - Assessments/Findings (1) Small bowel obstruction Diagnosis(s): Abdominal x-rays in the emergency room revealed dilated loops of small bowel as well as some air-fluid levels and what appears to be more collapsed small bowel. There is a paucity of gas in the colon. The INTERIOR WALL ASSEMBLER shunt tip appears to be in the right lower quadrant on these films. This is the second episode of small bowel obstruction in 1 month. In talking to the parents he apparently is also had episodes of vomiting in July and several times this spring. These resolved without seeking medical attention. Unfortunately there are no abdominal x-rays before his May admission so whether this is a chronic problem is unknown. IMPRESSION: Recurrent partial small bowel obstruction, most likely etiology is adhesions, whether related to the INTERIOR WALL ASSEMBLER shunt is unknown. In addition he has recently been started on hydrocodone and whether this is contributory or not is unclear. His elevated temperature may be due to atelectasis as he has poor excursion on chest x-ray. We'll need to review records from [facility] regarding their thoughts and SBFT report. RECOMMEND: May hold NG unless he vomits again. Few ice chips. IVF's, [place]. Serial exams. Consent for release of information will be sent to the [facility]. The case was discussed with Dr. Shook. Obviously if this can be managed non-operatively that would be preferable however this is his second episode in 1 month. Will follow Problem: Acute
[2017-06-30] MEDS: DIVALPROEX SODIUM 250 MG TABLET.DR PO SCH (20:38)
[2017-06-30] MEDS: OXYBUTYNIN CHLORIDE 5 MG TABLET PO SCH (20:39)
[2017-06-30] MEDS: QUEtiapine FUMARATE 100 MG TABLET PO SCH (20:39)
[2017-06-30] MEDS: HALOPERIDOL 5 MG TABLET PO SCH (20:40)
[2017-06-30] MEDS: SENNOSIDES/DOCUSATE SODIUM 1 TAB TABLET PO SCH (20:40)
[2017-06-30] MEDS: NYSTATIN 30 APPL TUBE TP SCH (20:41)
--- NOTE | 2017-06-30 23:48 | HP ---
Chief Complaint - Chief Complaint Date of Service: 06/30/17 Time of Service: 15:15 Chief Complaint: Abdominal pain History of Present Illness: Marino is a 47 yo male with history of recurrent small bowel obstructions and history of DATA OFFICER shunt. He has recently had his small bowel obstructions treated conservatively. Family reports that over the past 24 hours he has had increased abdominal pain. He last had a bowel movement 24 hours ago and the patient reports no gas in the last 24 hours. He is feeling nauseated but no emesis. - Patient's Past Medical History Patient History - Medical: GERD, Seizures, Other - He had surgery for brain tumor in the done in [facility] with placement of a DATA OFFICER shunt. He has some disability due to this and lives with his parents. Patient History - Cardiac/Respiratory: No pertinent hx Patient History - Cancer: Brain, Surgical Treatment Patient History - Surgical Procedures: Cancer Surgery, Orthopedic Patient History - Other: None - Family History Mother Family History - Medical: No pertinent hx Family History - Cardiac/Respiratory: No pertinent hx Family History - Cancer: No pertinent family hx Father Family History - Medical: No pertinent hx Family History - Cardiac/Respiratory: No pertinent hx Family History - Cancer: Melanoma, Other Maternal grandmother Family History - Medical: Family History - Cardiac/Respiratory: No pertinent hx Family History - Cancer: No pertinent family hx Maternal grandfather Family History - Medical: Family History - Cardiac/Respiratory: No pertinent hx Family History - Cancer: Leukemia Paternal grandmother Family History - Medical: Family History - Cardiac/Respiratory: No pertinent hx Family History - Cancer: Stomach Paternal grandfather Family History - Medical: Family History - Cardiac/Respiratory: No pertinent hx Family History - Cancer: No pertinent family hx - Social History Living Situations: home Abuse History: No History of abuse Psych History: No pertinent hx, Current tx/ever been on anti-depressants or anti -anxiety meds Smoking Status: Current every day smoker Have you smoked in the past 12 months: Yes Do you dip or chew tobacco: Yes Patient requests Smoking Cessation Consult: No Initiate information on Smoking Cessation: Yes Alcohol Use: none Drug Use: other - Immunizations Immunizations Up to Date: Yes Hx Pneumococcal Vaccination: No History of Influenza Vaccine: No Review Of Systems (GEN) - Review of Systems Generalized/Overall Review: Absent: Weakness, Chills, Fever EENTM: Present: No Symptoms Reported Respiratory: Present: No Symptoms Reported Cardiac: Present: No Symptoms Reported Abdominal: Present: Nausea, Abdominal Pain. Absent: Vomiting Genitourinary: Present: No Symptoms Reported Musculoskeletal: Present: No Symptoms Reported Neurological: Present: No Symptoms Reported Skin: Present: No Symptoms Reported Endocrine: Present: No Symptoms Reported Immunizations: IMMUNIZATION HX Immunizations Up to Date Yes History of Influenza Vaccine No Hx Pneumococcal Vaccination No Allergies/Adverse Reactions: Allergies Allergy/AdvReac Type Severity Reaction Status Date / Time No Known Allergies Allergy Verified 06/30/17 14:02 Home Medications: HOME MEDICATIONS Benzocaine/Menthol [Cepacol Sore Throat] 1 each MM PRN 06/27/17 [Last Taken 01/14] Divalproex Sodium [Depakote] 250 mg PO DAILY 06/27/17 [Last Taken 06/29/17] HYDROcodone/ACETAMINOPHEN [Hydrocodon-Acetaminophen 5-325] 2 each PO Q6H PRN [Last Taken 06/29/17] Haloperidol 20 mg PO BID 06/27/17 [Last Taken 06/29/17] QUEtiapine FUMARATE [Seroquel] 400 mg PO DAILY 06/27/17 [Last Taken 06/29/17] QUEtiapine FUMARATE [Seroquel] 500 mg PO HS 06/27/17 [Last Taken 06/29/17] Oxybutynin Chloride [Ditropan] 10 mg PO HS 06/28/17 [Last Taken 06/29/17] oxyCODONE HCL/ACETAMINOPHEN [Percocet 5 MG/325 MG] 2 tab PO Q4H PRN #60 tablet 06/28/17 [Last Taken 06/29/17] Exam - Exam Vital Signs: Vital Signs - Last Taken Temp 37.8 C H 06/30/17 16:58 Pulse 121 H 06/30/17 14:02 Resp 18 06/30/17 14:02 BP 133/89 06/30/17 14:02 Pulse Ox 92 06/30/17 14:02 Constitutional: Present: Alert, Oriented x3, Cooperative ENT Exam: Present: hearing grossly normal Respiratory: Present: lungs clear, normal breath sounds Cardiovascular/Chest: Present: regular rate, rhythm, no murmur Abdomen: Present: tender - diffuse, no bowel sounds. Absent: guarding, rigidity , rebound tenderness, firm Extremity: Present: other - Right arm wrapped with splint and raphael wrap Skin Exam: Present: normal color, warm/dry, no cyanosis Diagnostic Studies: Laboratory Results WBC 14.6 K/mm3 (4.0-10.5) H 06/30/17 11:35 RBC 5.49 M/mm3 (4.7-6.0) 06/30/17 11:35 Hgb 17.6 gm/dL (13.5-18.0) 06/30/17 11:35 Hct 50.7 % (42.0-52.0) 06/30/17 11:35 MCV 92.3 fl (78-100) 06/30/17 11:35 MCH 32.1 pg (27-31) H 06/30/17 11:35 MCHC 34.7 g/dl (32-36) 06/30/17 11:35 RDW 13.8 % (11.5-14.0) 06/30/17 11:35 Plt Count 370 K/mm3 (150-450) 06/30/17 11:35 MPV 11.2 fl (6.0-9.5) H 06/30/17 11:35 Immature Gran % (Auto) Computer Education Professor 06/30/17 11:35 Immature Gran # (Auto) Computer Education Professor 06/30/17 11:35 Neutrophils % Computer Education Professor 06/30/17 11:35 Neutrophils % (Manual) 64 % (42-75) 06/30/17 11:35 Band Neuts % (Manual) 18 % (0-2.0) H 06/30/17 11:35 Lymphocytes % Computer Education Professor 06/30/17 11:35 Lymphocytes % (Manual) 4 % (20-51) L 06/30/17 11:35 Monocytes % Computer Education Professor 06/30/17 11:35 Monocytes % (Manual) 13 % (0-9) H 06/30/17 11:35 Eosinophils % Computer Education Professor 06/30/17 11:35 Eosinophils % (Manual) 1 % (0-3) 06/30/17 11:35 Basophils % Computer Education Professor 06/30/17 11:35 Nucleated RBC % Computer Education Professor 06/30/17 11:35 Neutrophils # Computer Education Professor 06/30/17 11:35 Neutrophils # (Manual) 9.3 K/mm3 (1.3-6.0) H 06/30/17 11:35 Lymphocytes # Computer Education Professor 06/30/17 11:35 Lymphocytes # (Manual) 0.6 k/mm3 (1.5-3.5) L 06/30/17 11:35 Monocytes # Computer Education Professor 06/30/17 11:35 Monocytes # (Manual) 1.9 k/mm3 (0.0-1.0) H 06/30/17 11:35 Eosinophils # Computer Education Professor 06/30/17 11:35 Eosinophils # (Manual) 0.1 k/mm3 (0.0-0.7) 06/30/17 11:35 Absolute Basophils Computer Education Professor 06/30/17 11:35 Toxic Granulation Trace 06/30/17 11:35 Toxic Vacuolation Trace 06/30/17 11:35 Platelet Estimate Normal (NORMAL) 06/30/17 11:35 RBC Morphology Normal (NORMAL) 06/30/17 11:35 Sodium 136 mmol/L (132-142) 06/30/17 11:35 Plasma Sodium 137 mmol/L (130-142) 06/30/17 11:35 Potassium 5.0 mmol/L (3.4-4.6) H D 06/30/17 11:35 Chloride 100 mmol/L (97-106) 06/30/17 11:35 Carbon Dioxide 18.1 mmol/L (24-32.6) L 06/30/17 11:35 Anion Gap 22.9 mmol/L (6.8-13.8) H 06/30/17 11:35 BUN 13 mg/dL (6-23) D 06/30/17 11:35 Creatinine 1.77 mg/dL (0.4-1.4) H D 06/30/17 11:35 Est GFR (Non-Af Amer) 44 mL/min (60-130) L D 06/30/17 11:35 BUN/Creatinine Ratio 7.3 (9.0-21.6) L 06/30/17 11:35 Random Glucose 146 mg/dL (70-110) H 06/30/17 11:35 Calcium 9.2 mg/dL (7.9-10.9) 06/30/17 11:35 Calcium Adj for Albumin 9.8 mg/dL (8.4-10.2) 06/30/17 11:35 Total Bilirubin 1.2 mg/dL (0.0-1.1) H 06/30/17 11:35 AST 27 U/L (0-48) 06/30/17 11:35 ALT 15 U/L (19-67) L 06/30/17 11:35 Alkaline Phosphatase 71 U/L (50-170) 06/30/17 11:35 Troponin I Less than 0.017 ng/ml (0.00-0.10) 06/30/17 11:35 Total Protein 8.0 gm/dL (6.2-8.2) 06/30/17 11:35 Albumin 2.8 gm/dl (3.4-5.0) L 06/30/17 11:35 Amylase 55 U/L (25-115) 06/30/17 11:35 Lipase 101 U/L (73-393) 06/30/17 11:35 Assessment/Plan - Narrative Narrative: Marino is a 47 yo male with hx of DATA OFFICER shunt and recurrent episodes of small bowel obstruction. He has another such episode based on CT. Will make him NPO and consult surgery. If he has significant vomiting may need NG tube. Will monitor with serial abdominal xrays. Will monitor bowel function. Will admit to acute inpatient status. Expect >2 midnights for treatment. May need surgical intervention. - Assessment/Plan (1) Fracture of proximal ulna, closed Problem: Acute Qualifiers: Encounter type: subsequent encounter Fracture morphology: unspecified fracture morphology Laterality: right Fracture healing: with routine healing Qualified Code(s): S52.001D - Unspecified fracture of upper end of right ulna, subsequent encounter for closed fracture with routine healing (2) Small bowel obstruction Problem: Acute (3) automatic steel tie adjuster shunt Problem: Acute
[2017-07-01] MEDS: 0.5 NORMAL SALINE 1,000 ML IV PRN (05:31)
[2017-07-01 06:16] LABS: Hematocrit 34.6 % (42.0-52.0); Hemoglobin 11.7 gm/dL (13.5-18.0); Mean Cell Volume 94.5 fl (78-100); Mean Corpuscular Hgb Conc 33.8 g/dl (32-36); Mean Platelet Volume 11.3 fl (6.0-9.5); Neutrophil # 3.6 K/mm3 (1.3-6.0); Neutrophil % 44.1 % (42-75.0); Platelet Count 253 K/mm3 (150-450); Red Blood Count 3.66 M/mm3 (4.7-6.0); Red Cell Distribution Width 13.7 % (11.5-14.0); White Blood Count 8.3 K/mm3 (4.0-10.5)
[2017-07-01 06:24] LABS: Anion Gap 11.9 mmol/L (6.8-13.8); BUN/Creatinine Ratio 18.6 (9.0-21.6); Bilirubin, Total 0.8 mg/dL (0.0-1.1); Ca. Corrected For Albumin 8.6 mg/dL (8.4-10.2); Calcium * 7.3 mg/dL (7.9-10.9); Carbon Dioxide 27.1 mmol/L (24-32.6); Total Protein 5.6 gm/dL (6.2-8.2)
--- NOTE | 2017-07-01 08:06 | PN ---
Progess Note - Interim Narrative: Pt reports he has minimal right arm pain. Pt has been wearing sling and splint. Bandage clean, dry, intact. Finance Specialist strength 4+/5, full ROM of digits, cap refill brisk, SILT. - S/p ORIF of R olecranon fx post-op day #3 - NWB through RUE - Recommend d/c toradol for pain control, oral pain control with tylenol - Continue in splint, bandage, and sling for RUE - Oral diet as recommended by medicine team 07/01/17 07:58
--- NOTE | 2017-07-01 08:31 | PN ---
Subjective - Date and Time Seen Date: 07/01/17 Time: 07:10 Subjective Narrative: No pain, no nausea, better. H&P reviewed. Discussed face to face with Dr. Gee. Objective - Review of Systems Generalized/Overall Review: Reports: No Symptoms Reported EENTM: Reports: No Symptoms Reported Respiratory: Reports: No Symptoms Reported Cardiac: Reports: No Symptoms Reported Abdominal: Reports: No Symptoms Reported Genitourinary Symptoms: Reports: No Symptoms Reported Musculoskeletal Complaints: Reports: No Symptoms Reported Neurological: Reports: No Symptoms Reported Skin: Reports: No Symptoms Reported Endocrine: Reports: No Symptoms Reported Misc: All systems neg except as marked - Vitals Vitals: Last Vital Signs Selected Entries 07/01/17 03:29 Temperature 37.0 C Temperature Temporal Artery Source Scan Pulse Rate 106 H Pulse Rhythm Regular Pulse Strength Normal Respiratory 18 Rate Respiratory Normal Depth Respiratory Normal Effort Respiratory Normal Pattern Blood Pressure 106/64 Blood Pressure 78 Mean Blood Pressure Supine Position O2 Sat by Pulse 90 Oximetry Oxygen Delivery Room Air Method - Abnormal Lab Findings Abnormal Lab Findings: Abnormal Lab Results 07/01/17 07/01/17 Range/Units 05:55 05:55 RBC 3.66 L (4.7-6.0) M/mm3 Hgb 11.7 L (13.5-18.0) gm/dL Hct 34.6 L (42.0-52.0) % MCH 32.0 H (27-31) pg MPV 11.3 H (6.0-9.5) fl Monocytes % 15.4 H (0.0-9) % Monocytes # 1.3 H (0.0-1.0) k/mm3 Calcium 7.3 L (7.9-10.9) mg/dL ALT 9 L (19-67) U/L Total Protein 5.6 L (6.2-8.2) gm/dL Albumin 2.0 L (3.4-5.0) gm/dl - Exam Constitutional: Present: Alert, Oriented x3, Cooperative, Well developed, Well nourished, No distress ENT Exam: Present: normal ENT inspection, hearing grossly normal Neck: Present: normal inspection Respiratory: Present: normal breath sounds, no respiratory distress Cardiovascular/Chest: Present: regular rate, rhythm, no murmur, tachycardia Abdomen: Present: Normal bowel sounds, soft, nontender, nondistended, no rebound tenderness, no hepatospenomegaly, no masses Extremity: Present: normal inspection, no pedal edema Skin Exam: Present: normal color, warm/dry, no cyanosis Neurologic: Present: alert, oriented x 3 Appearance: Present: appropriate appearance, neat, other - chronic Eye contact: Present: cooperative, good eye contact Assessment/Plan Plan Narrative: May be ileus related to narcotics. Narcotics have been stopped. On sips of water. Feels better. WBC count better. Pulse and resp. rate better. Dr. Gee working on getting images from [facility]. Will follow along and ambulate patient. - Problems/Diagnosis (1) helminthologist shunt Problem: Acute (2) Fracture of proximal ulna, closed Problem: Acute Qualifiers: Encounter type: subsequent encounter Fracture morphology: unspecified fracture morphology Laterality: right Fracture healing: with routine healing Qualified Code(s): S52.001D - Unspecified fracture of upper end of right ulna, subsequent encounter for closed fracture with routine healing (3) Seizures Problem: Chronic (4) TBI (traumatic brain injury) Problem: Chronic Qualifiers: Encounter type: sequela Loss of consciousness presence/duration: with LOC of unspecified duration Qualified Code(s): S06.9X9S - Unspecified intracranial injury with loss of consciousness of unspecified duration, sequela (5) Partial small bowel obstruction Problem: Acute (6) GERD (gastroesophageal reflux disease) Problem: Chronic Qualifiers: Esophagitis presence: esophagitis presence not specified Qualified Code(s) : K21.9 - Gastro-esophageal reflux disease without esophagitis
[2017-07-01] MEDS: POTASSIUM CHLORIDE 10 MEQ in 0.5 NORMAL SALINE 1,000 ML IV SCH ×2 (08:41→16:48)
[2017-07-01] MEDS: DIVALPROEX SODIUM 250 MG TABLET.DR PO SCH (08:44)
[2017-07-01] MEDS: HALOPERIDOL 5 MG TABLET PO SCH ×2 (08:44→21:14)
[2017-07-01] MEDS: PANTOPRAZOLE SODIUM 40 MG TABLET.EC PO SCH (08:44)
[2017-07-01] MEDS: NYSTATIN 30 APPL TUBE TP SCH (08:45)
[2017-07-01] MEDS: QUEtiapine FUMARATE 100 MG TABLET PO SCH ×2 (08:45→21:14)
[2017-07-01] MEDS: NYSTATIN 15 APPL BTL TP SCH (21:13)
[2017-07-01] MEDS: OXYBUTYNIN CHLORIDE 5 MG TABLET PO SCH (21:13)
[2017-07-01] MEDS: SENNOSIDES/DOCUSATE SODIUM 1 TAB TABLET PO SCH (21:15)
[2017-07-01] MEDS: KETOROLAC TROMETHAMINE 15 MG/ML VIAL IV PRN (22:59)
[2017-07-02] MEDS: POTASSIUM CHLORIDE 10 MEQ in 0.5 NORMAL SALINE 1,000 ML IV SCH ×3 (02:37→19:29)
[2017-07-02 06:27] LABS: Hematocrit 33.2 % (42.0-52.0); Mean Cell Volume 95.7 fl (78-100); Mean Corpuscular Hemoglobin 31.7 pg (27-31); Mean Corpuscular Hgb Conc 33.1 g/dl (32-36); Mean Platelet Volume 11.1 fl (6.0-9.5); Neutrophil # 3.9 K/mm3 (1.3-6.0); Neutrophil % 46.5 % (42-75.0); Platelet Count 251 K/mm3 (150-450); Red Blood Count 3.47 M/mm3 (4.7-6.0); Red Cell Distribution Width 13.2 % (11.5-14.0); White Blood Count 8.3 K/mm3 (4.0-10.5)
[2017-07-02 06:43] LABS: BUN/Creatinine Ratio 15.4 (9.0-21.6); Calcium * 7.5 mg/dL (7.9-10.9); Carbon Dioxide 25.8 mmol/L (24-32.6); Estimated Creat Clear 139.9; Potassium 3.8 mmol/L (3.4-4.6)
[2017-07-02] MEDS: PANTOPRAZOLE SODIUM 40 MG TABLET.EC PO SCH (06:47)
[2017-07-02] MEDS: DIVALPROEX SODIUM 250 MG TABLET.DR PO SCH (08:08)
[2017-07-02] MEDS: NYSTATIN 15 APPL BTL TP SCH ×2 (08:08→21:07)
[2017-07-02] MEDS: HALOPERIDOL 5 MG TABLET PO SCH ×2 (08:08→21:04)
[2017-07-02] MEDS: QUEtiapine FUMARATE 100 MG TABLET PO SCH ×2 (08:08→21:06)
--- NOTE | 2017-07-02 09:58 | PN ---
Dictated Progress Note - Date and Time Seen: Date: 07/02/17 Time: 09:53 - Progress Note Narrative: Vital Signs - Last Taken Temp 37.2 C 07/02/17 07:49 Pulse 91 07/02/17 07:49 Resp 20 07/02/17 07:49 BP 109/71 07/02/17 07:49 Pulse Ox 94 07/02/17 07:49 Abnormal/Pending Laboratory Last 24 HRS 07/02/17 07/02/17 06:27 06:27 RBC 3.47 L Hgb 11.0 L Hct 33.2 L MCH 31.7 H MPV 11.1 H Monocytes % 14.7 H Monocytes # 1.2 H Calcium 7.5 L He has not vomited and passed a small amount of gas, however his xray shows much more distention of small bowel, and his abdomen is much more distended. He remains soft with no peritoneal signs. Impression: High grade partial small bowel obstruction, must suspect adhesions Recommend: Discussed at length with patient and his parents. Options are to repeat CT with gastroview to better define area of obstruction or just exploration as it should be readily identifiable. Even if he resolves with non- operative management the problem is likely to re-occur. Will discuss with Dr Wilkes.
[2017-07-02] MEDS: OXYBUTYNIN CHLORIDE 5 MG TABLET PO SCH (21:03)
[2017-07-02] MEDS: SENNOSIDES/DOCUSATE SODIUM 1 TAB TABLET PO SCH (21:05)
--- NOTE | 2017-07-02 23:51 | PN ---
Objective - Vitals Vitals: Last Vital Signs Temp 36.4 C L 07/02/17 19:34 Pulse 84 07/02/17 19:34 Resp 20 07/02/17 19:34 BP 134/69 07/02/17 19:34 Pulse Ox 94 07/02/17 19:34 - Abnormal Lab Findings Abnormal Lab Findings: Abnormal Lab Results 07/02/17 07/02/17 Range/Units 06:27 06:27 RBC 3.47 L (4.7-6.0) M/mm3 Hgb 11.0 L (13.5-18.0) gm/dL Hct 33.2 L (42.0-52.0) % MCH 31.7 H (27-31) pg MPV 11.1 H (6.0-9.5) fl Monocytes % 14.7 H (0.0-9) % Monocytes # 1.2 H (0.0-1.0) k/mm3 Calcium 7.5 L (7.9-10.9) mg/dL Assessment/Plan - Problems/Diagnosis (1) Fracture of proximal ulna, closed Problem: Acute Qualifiers: Encounter type: subsequent encounter Fracture morphology: unspecified fracture morphology Laterality: right Fracture healing: with routine healing Qualified Code(s): S52.001D - Unspecified fracture of upper end of right ulna, subsequent encounter for closed fracture with routine healing (2) Small bowel obstruction Problem: Acute (3) 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
[2017-07-03] MEDS: POTASSIUM CHLORIDE 10 MEQ in 0.5 NORMAL SALINE 1,000 ML IV SCH ×3 (03:34→21:38)
[2017-07-03] MEDS: PANTOPRAZOLE SODIUM 40 MG TABLET.EC PO SCH (06:47)
[2017-07-03] MEDS: HALOPERIDOL 5 MG TABLET PO SCH ×2 (08:48→20:22)
[2017-07-03] MEDS: DIVALPROEX SODIUM 250 MG TABLET.DR PO SCH (08:48)
[2017-07-03] MEDS: NYSTATIN 15 APPL BTL TP SCH ×2 (08:49→20:25)
[2017-07-03] MEDS: QUEtiapine FUMARATE 100 MG TABLET PO SCH ×2 (08:49→20:21)
[2017-07-03] MEDS: KETOROLAC TROMETHAMINE 15 MG/ML VIAL IV PRN (12:00)
--- NOTE | 2017-07-03 18:17 | PN ---
Dictated Progress Note - Date and Time Seen: Date: 07/03/17 Time: 18:10 - Progress Note Narrative: Vital Signs - Last Taken Temp 36.6 C 07/03/17 15:19 Pulse 86 07/03/17 15:19 Resp 18 07/03/17 15:19 BP 134/67 07/03/17 15:19 Pulse Ox 100 07/03/17 15:19 VS have remained normal. No N/V however has not moved his bowels and ?passed a little gas. No abdominal pain. Still distended with marked tympani to percussion, but soft. Silent over 4 minutes of auscultation. No percussion tenderness or discrete point tenderness. No guarding or rebound. xray still shows abnormal gas pattern suggesting obstruction. IMPRESSION: small bowel obstruction, suspect adhesions RECOMMEND: Discussed situation at length with the patient and his parents. He has not improved with a reasonable trial of observation. There is risk to operation, however if the situation can be corrected that would be preferable. Will tentatively plan on exploratory laparotomy tomorrow as SCU staffing is available. Main risk post-op is hypoventilation.
[2017-07-03] MEDS: SENNOSIDES/DOCUSATE SODIUM 1 TAB TABLET PO SCH (20:23)
[2017-07-03] MEDS: OXYBUTYNIN CHLORIDE 5 MG TABLET PO SCH (20:23)
--- NOTE | 2017-07-03 23:41 | PN ---
Subjective - Date and Time Seen Date: 07/03/17 Objective - Vitals Vitals: Last Vital Signs Temp 36.8 C 07/03/17 19:24 Pulse 86 07/03/17 19:24 Resp 18 07/03/17 19:24 BP 129/75 07/03/17 19:24 Pulse Ox 94 07/03/17 19:24 Assessment/Plan - Problems/Diagnosis (1) Fracture of proximal ulna, closed Problem: Acute Qualifiers: Encounter type: subsequent encounter Fracture morphology: unspecified fracture morphology Laterality: right Fracture healing: with routine healing Qualified Code(s): S52.001D - Unspecified fracture of upper end of right ulna, subsequent encounter for closed fracture with routine healing (2) Small bowel obstruction Problem: Acute (3) 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
[2017-07-04] MEDS: PANTOPRAZOLE SODIUM 40 MG TABLET.EC PO SCH (06:31)
[2017-07-04] MEDS: POTASSIUM CHLORIDE 10 MEQ in 0.5 NORMAL SALINE 1,000 ML IV SCH ×3 (06:40→20:11)
[2017-07-04] MEDS: QUEtiapine FUMARATE 100 MG TABLET PO SCH ×2 (08:36→21:08)
[2017-07-04] MEDS: DIVALPROEX SODIUM 250 MG TABLET.DR PO SCH (08:37)
[2017-07-04] MEDS: NYSTATIN 15 APPL BTL TP SCH ×2 (08:37→21:10)
[2017-07-04] MEDS: HALOPERIDOL 5 MG TABLET PO SCH ×2 (08:37→21:09)
[2017-07-04] MEDS ORDERED: ceFAZolin SODIUM 2 GM in DEXTROSE 5 % IN WATER 50 ML IV ONE ×2 (13:30)
[2017-07-04] MEDS ORDERED: RINGER'S SOLUTION,LACTATED 1,000 ML IV ONE ×3 (13:45→14:50)
[2017-07-04] MEDS ORDERED: BUPIVACAINE HCL/EPINEPHRINE 50 ML VIAL IJ ONE (14:30)
[2017-07-04] MEDS ORDERED: MUPIROCIN 22 APPL TUBE TP ONE ×2 (16:00→16:50)
--- NOTE | 2017-07-04 18:20 | PN ---
Subjective - Date and Time Seen Date: 07/04/17 Time: 18:18 Subjective Narrative: Patient is just back from surgery. Have discussed surgery findings with martinez Alcocer. Examined patient, doing well at present. Parents not in room just now. BMP has been ordered for tomorrow morning. Objective - Review of Systems Generalized/Overall Review: Reports: No Symptoms Reported EENTM: Reports: No Symptoms Reported Respiratory: Reports: No Symptoms Reported Cardiac: Reports: No Symptoms Reported Abdominal: Reports: No Symptoms Reported Genitourinary Symptoms: Reports: No Symptoms Reported Musculoskeletal Complaints: Reports: No Symptoms Reported Neurological: Reports: No Symptoms Reported Skin: Reports: No Symptoms Reported Endocrine: Reports: No Symptoms Reported Misc: All systems neg except as marked - In spite of the surgery, Marino reports no symptoms. "I'm just fine" - Vitals Vitals: Last Vital Signs Selected Entries 07/04/17 18:01 Pulse Rate 84 Respiratory 14 Rate Blood Pressure 128/71 O2 Sat by Pulse 93 Oximetry Oxygen Delivery Nasal Cannula Method Oxygen Flow 2 Rate - Exam Constitutional: Present: Alert, Oriented x3, Cooperative, Well developed, Well nourished, No distress ENT Exam: Present: normal ENT inspection, hearing grossly normal Neck: Present: normal inspection Respiratory: Present: normal breath sounds, no respiratory distress Cardiovascular/Chest: Present: regular rate, rhythm, no edema Abdomen: Present: soft, nondistended, no rebound tenderness, no hepatospenomegaly, no masses, other - NG in place, dressing intact, tender to palpation Extremity: Present: normal inspection, no pedal edema Skin Exam: Present: normal color, warm/dry, no cyanosis Neurologic: Present: alert Appearance: Present: appropriate appearance, neat Eye contact: Present: cooperative, good eye contact Cauti Physician Documentation - Urinary Catheter Management Urethral (Herron) Date of Insertion: 07/04/17 Time of Insertion: 14:15 Assessment/Plan Plan Narrative: Proceed with post op plan. BMP tomorrow. Patient is doing very well thus far immediately post op. - Problems/Diagnosis (1) class a regional drivers shunt Problem: Acute (2) Fracture of proximal ulna, closed Problem: Acute Qualifiers: Encounter type: subsequent encounter Fracture morphology: unspecified fracture morphology Laterality: right Fracture healing: with routine healing Qualified Code(s): S52.001D - Unspecified fracture of upper end of right ulna, subsequent encounter for closed fracture with routine healing (3) Seizures Problem: Chronic (4) TBI (traumatic brain injury) Problem: Chronic Qualifiers: Encounter type: sequela Loss of consciousness presence/duration: with LOC of unspecified duration Qualified Code(s): S06.9X9S - Unspecified intracranial injury with loss of consciousness of unspecified duration, sequela (5) Partial small bowel obstruction Problem: Acute (6) GERD (gastroesophageal reflux disease) Problem: Chronic Qualifiers: Esophagitis presence: esophagitis presence not specified Qualified Code(s) : K21.9 - Gastro-esophageal reflux disease without esophagitis (7) Abdominal adhesions Problem: Chronic Narrative: status post relief of small bowel obstruction today
[2017-07-04] MEDS: PANTOPRAZOLE SODIUM 40 MG in NORMAL SALINE 100 ML IV SCH (19:21)
[2017-07-04] MEDS: HYDROmorphone HCL IN 0.9% NACL 50 ML CARTRIDGE IV PRN (19:24)
[2017-07-05] MEDS: RINGER'S SOLUTION,LACTATED 1,000 ML IV PRN ×3 (02:30→17:32)
[2017-07-05 06:28] LABS: Anion Gap 18.9 mmol/L (6.8-13.8); BUN/Creatinine Ratio 6.1 (9.0-21.6); Calcium * 8.5 mg/dL (7.9-10.9); Carbon Dioxide 17.9 mmol/L (24-32.6); Estimated Creat Clear 133.1; Potassium 4.8 mmol/L (3.4-4.6)
[2017-07-05] MEDS ORDERED: BISACODYL 10 MG SUPP.RECT RC ONE (07:16)
--- NOTE | 2017-07-05 07:19 | PN ---
Subjective - Date and Time Seen Date: 07/05/17 Time: 07:14 Objective Objective Narrative: Patient seen and examined at bedside. No acute issues overnight. Abdominal discomfort markedly improved since yesterday and this AM patient only complains of incisional pain. No BM. Unsure if passing gas. Tolerating ice chips well. - Review of Systems Generalized/Overall Review: Reports: No Symptoms Reported EENTM: Reports: No Symptoms Reported Respiratory: Reports: No Symptoms Reported Cardiac: Reports: No Symptoms Reported Abdominal: Reports: Abdominal Pain Genitourinary Symptoms: Reports: No Symptoms Reported Musculoskeletal Complaints: Reports: No Symptoms Reported Neurological: Reports: No Symptoms Reported Skin: Reports: No Symptoms Reported Endocrine: Reports: No Symptoms Reported Misc: All systems neg except as marked - Vitals Vitals: Last Vital Signs Temp 36.6 C 07/05/17 03:43 Pulse 99 07/05/17 05:46 Resp 20 07/05/17 05:46 BP 134/72 07/05/17 05:46 Pulse Ox 94 07/05/17 05:46 - Abnormal Lab Findings Abnormal Lab Findings: Abnormal Lab Results 07/05/17 Range/Units 05:50 Potassium 4.8 H D (3.4-4.6) mmol/L Carbon Dioxide 17.9 L (24-32.6) mmol/L Anion Gap 18.9 H (6.8-13.8) mmol/L BUN 5 L D (6-23) mg/dL BUN/Creatinine Ratio 6.1 L (9.0-21.6) - Exam Constitutional: Present: Alert, Cooperative, Well developed, Well nourished, No distress ENT Exam: Present: hearing grossly normal, moist mucous membranes Respiratory: Present: lungs clear, normal breath sounds, no respiratory distress , no accessory muscle use Cardiovascular/Chest: Present: regular rate, rhythm, no edema, systolic murmur - +1/6 systolic murmur Abdomen: Present: soft, tender, other - Abdominal incision with clean, dry and intact dressing in place. Absent: rigidity Extremity: Present: normal inspection, no pedal edema Skin Exam: Present: normal color, warm/dry, no cyanosis Neurologic: Present: alert Eye contact: Present: cooperative Cauti Physician Documentation - Urinary Catheter Management Urethral (Herron) Date of Insertion: 07/04/17 Time of Insertion: 14:15 Assessment/Plan Plan Narrative: Titrate off oxygen as able with goal SpO2>92% (patient is not on oxygen at home) . Await Dr. Gee's recommendations on advancing diet. If diet is advanced and patient is tolerating PO intake, consider discontinuing IVFs. Continue to monitor clinical progression and hopefully patient can be discharged home in the near future. - Problems/Diagnosis (1) Small bowel obstruction Problem: Acute (2) Abdominal adhesions Problem: Chronic (3) Seizure disorder Problem: Chronic
[2017-07-05] MEDS: QUEtiapine FUMARATE 100 MG TABLET PO SCH ×2 (09:59→20:31)
[2017-07-05] MEDS: BISACODYL 5 MG TABLET.DR PO SCH (09:59)
[2017-07-05] MEDS: DIVALPROEX SODIUM 250 MG TABLET.DR PO SCH (10:00)
[2017-07-05] MEDS: HALOPERIDOL 5 MG TABLET PO SCH ×2 (10:00→20:31)
[2017-07-05] MEDS: NYSTATIN 15 APPL BTL TP SCH ×2 (10:03→20:31)
[2017-07-05] MEDS ORDERED: METOCLOPRAMIDE HCL 5 MG/ML VIAL IV PRN (11:07)
--- NOTE | 2017-07-05 13:07 | OR ---
Operative Report - Dictated Report Narrative: OPERATIVE REPORT DATE OF OPERATION: 07/04/2017 PREOPERATIVE DIAGNOSIS: Small bowel obstruction POSTOPERATIVE DIAGNOSIS: Small bowel obstruction from adhesions (relieved) OPERATION: Exploratory laparotomy with lysis of adhesions SURGEON: Damien Gee MD ANESTHESIA: Gen. endotracheal Chester Jeffrey CRNA INDICATIONS FOR PROCEDURE: The patient is a 47-year-old male admitted with recurrent small bowel obstruction which is not resolved with nonoperative management. FINDINGS: Chronic appearing, dense RLQ adhesions involving the area of the junction of the proximal and middle thirds of the jejunum. This within the area of obstruction. Normal-appearing distal small intestine below the obstruction. Institutional appearing sigmoid colon. 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 NARRATIVE OF PROCEDURE: The patient was identified preoperatively, and prior to the administration of anesthetic a multidisciplinary timeout was observed. The patient was placed supine, SCDs were applied, 2 g of intravenous Ancef was administered. General endotracheal anesthetic was administered. A Herron catheter was placed. The patient's abdomen was prepped with Betadine solution and the midline isolated with 4 sterile towels. The remainder the patient was covered with a sterile disposable drape. A 1040 drape was used. Initially a low midline surgical incision was made skirting to the right of the umbilicus. Dissection was carried through subcutaneous tissue with electrocautery until the fascia of the linea alba was identified. This was incised at the umbilicus and the peritoneum elevated and incised to allow entry into the abdomen under direct vision. There was a moderate amount of straw-colored clear peritoneal fluid present. This was suctioned. A forefinger was inserted and the incision opened. The lower abdomen was then manually and visually explored. Initially apparent was chronically dilated appearing small intestine which could be traced distally into the right lower quadrant where a mass of very dense chronic appearing adhesions were found adjacent to the apex of the cecum. The tip of the ROUTE SALES MANAGER shunt tubing was located. It was free-floating. It was then placed in the right upper quadrant out of the surgical field. Next a massively dilated sigmoid colon was encountered, which was then replaced in the left lower quadrant which exposed a segment of collapsed small intestine. Further exposure was deemed necessary, and the midline incision was extended cephalad. A Buckwalter self-retaining retractor was placed to provide stable exposure. The collapsed intestine was then traced in both directions and placed on the anterior abdominal wall. Eventually this collapsed intestine was exposed at the point where it exited the mass of adhesions in the right lower quadrant. There was seen to be angulation due to adhesions which were carefully divided under direct vision to straighten the intestine and release the adhesion between the leaves of the mesentery. This resulted in release of the obstruction with immediate berger of bowel contents from the dilated proximal bowel into the collapsed distal bowel. The area was judiciously further explored, however the adhesed bowel could not be further developed due to the chronicity and density of the adhesions. The distal end of the collapsed small intestine could not be traced definitively to the cecum, as it was seen to course behind the area of adhesions. The small bowel was then replaced anatomically. The greater omentum could not be mobilized sufficiently to provide coverage as it was adherent in the upper abdomen. The stomach could be palpated and in conjunction with the hand lens polisher a nasogastric tube was placed and confirmed by palpation to be in the mid stomach. The ROUTE SALES MANAGER shunt tubing was again confirmed to be in the right lateral abdomen. The abdomen was irrigated and suctioned clean. After receiving a correct sponge needle and instrument count attention was turned to closing the abdomen. The fascia and peritoneum were approximated with a single layer of interrupted sutures of antibiotic containing #1 Vicryl. Subcutaneous space was obliterated with interrupted sutures of 2-0 chromic. The skin was secured with stacy. The operative site was washed and dried. A dressing of mupirocin ointment, folded 4 x 4's and Medipore tape was applied. The operative procedure was terminated at this point. The patient tolerated the anesthetic and procedure well without complication. There was no measurable blood loss. No specimens were submitted. The patient was transferred to the recovery room extubated, awake, and in stable condition. Reviewed and electronically signed
--- NOTE | 2017-07-05 13:35 | PN ---
Progess Note - Interim Narrative: Pt has had no acute events. Pt states he has no pain in his elbow. Exam reveals RUE splint and bandages c/d/i, sling on, social science instructor strength 4+/5, median, ulnar, radial nerve functioning, SILT, cap refill brisk. Recommend pt remains in his splint until f/u. S/p ORIF of R olecranon fx post-op day #7 - NWB through RUE - Recommend pain control per medicine team - Continue in splint, bandage, and sling for RUE - Oral diet as recommended by medicine team - Recommend elevation, rest, ice for edema - F/u at 14 days post-op in outpatient clinic for wound check and suture removal 07/05/17 - 13:31
[2017-07-05] MEDS: PANTOPRAZOLE SODIUM 40 MG in NORMAL SALINE 100 ML IV SCH (17:29)
--- NOTE | 2017-07-05 18:49 | PN ---
Dictated Progress Note - Date and Time Seen: Date: 07/05/17 Time: 18:46 - Progress Note Narrative: Vital Signs - Last Taken Temp 37.5 C 07/05/17 14:27 Pulse 118 H 07/05/17 14:27 Resp 18 07/05/17 14:27 BP 122/82 07/05/17 14:27 Pulse Ox 92 07/05/17 14:27 Abnormal/Pending Laboratory Last 24 HRS 07/05/17 05:50 Potassium 4.8 H D Carbon Dioxide 17.9 L Anion Gap 18.9 H BUN 5 L D BUN/Creatinine Ratio 6.1 L POD#1 Exploratory laparotomy with lysis of adhesions VS stable with increase HR this PM. Pain is tolerable with LEGAL DOCUMENT SPECIALIST. Has been up in chair and walked. Abdomen tympanic and few BS. Belching, no flattus. Dressing dry. will hold to clear liquids. Add fleets, encourage walking.
[2017-07-05] MEDS ORDERED: SODIUM PHOSPHATE,MONO-DIBASIC 1 ENEMA BTL RC SCH (19:00)
[2017-07-05] MEDS ORDERED: MINERAL OIL 1 ENEMA BTL RC ONE ×2 (19:30→19:31)
[2017-07-06] MEDS: RINGER'S SOLUTION,LACTATED 1,000 ML IV PRN (01:54)
[2017-07-06] MEDS: HYDROmorphone HCL IN 0.9% NACL 50 ML CARTRIDGE IV PRN (03:11)
[2017-07-06] MEDS ORDERED: NORMAL SALINE 1,000 ML IV PRN (07:41)
[2017-07-06] MEDS ORDERED: BISACODYL 5 MG TABLET.DR PO ONE (07:44)
--- NOTE | 2017-07-06 08:14 | PN ---
Subjective - Date and Time Seen Date: 07/06/17 Time: 08:08 Subjective Narrative: "I'm just fine."- his usual greeting. Eating his clear liquid breakfast. When directly asked, passed gas twice this morning. No BM. Walked three times in [place] yesterday according to his nurse. When asked this morning, nauseated. Less incisional pain today. Objective - Review of Systems Generalized/Overall Review: Reports: No Symptoms Reported EENTM: Reports: No Symptoms Reported Respiratory: Reports: No Symptoms Reported Cardiac: Reports: No Symptoms Reported Abdominal: Reports: Other - see HPI Genitourinary Symptoms: Reports: No Symptoms Reported Musculoskeletal Complaints: Reports: No Symptoms Reported Neurological: Reports: No Symptoms Reported Skin: Reports: No Symptoms Reported Endocrine: Reports: No Symptoms Reported Misc: All systems neg except as marked - Vitals Vitals: Last Vital Signs Selected Entries 07/05/17 07/05/17 07/05/17 19:33 21:07 23:40 Temperature Temperature Source Pulse Rate 115 H 115 H 95 Respiratory 20 Rate Respiratory Depth Respiratory Effort Blood Pressure 125/82 Blood Pressure Position O2 Sat by Pulse 93 89 L Oximetry Oxygen Delivery Method 07/06/17 07/06/17 02:53 07:14 Temperature 37 C Temperature Temporal Artery Source Scan Pulse Rate 95 101 H Respiratory 21 H 20 Rate Respiratory Normal Depth Respiratory Normal Effort Non-Labored Blood Pressure 138/77 153/82 Blood Pressure Supine Position O2 Sat by Pulse 86 L 95 Oximetry Oxygen Delivery Room Air Method - Exam Constitutional: Present: Alert, Oriented x3, Cooperative, Well developed, Well nourished, No distress ENT Exam: Present: normal ENT inspection, hearing grossly normal Neck: Present: normal inspection Respiratory: Present: normal breath sounds, no respiratory distress Cardiovascular/Chest: Present: regular rate, rhythm, no murmur Abdomen: Present: no rebound tenderness, no hepatospenomegaly, no masses, other - slightly tender, distended, tympanitic, some bowel sounds Extremity: Present: no pedal edema Skin Exam: Present: normal color, warm/dry, no cyanosis Neurologic: Present: alert, oriented x 3 Appearance: Present: appropriate appearance, neat Eye contact: Present: cooperative, good eye contact Cauti Physician Documentation - Urinary Catheter Management Urethral (Herron) Date of Insertion: 07/04/17 Time of Insertion: 14:15 Assessment/Plan Plan Narrative: Slow progress post op. Check flat plate and up right. Continue ambulation. Continue clear liquids. 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 (2) Fracture of proximal ulna, closed Problem: Acute Qualifiers: Encounter type: subsequent encounter Fracture morphology: unspecified fracture morphology Laterality: right Fracture healing: with routine healing Qualified Code(s): S52.001D - Unspecified fracture of upper end of right ulna, subsequent encounter for closed fracture with routine healing (3) Seizures Problem: Chronic (4) TBI (traumatic brain injury) Problem: Chronic Qualifiers: Encounter type: sequela Loss of consciousness presence/duration: with LOC of unspecified duration Qualified Code(s): S06.9X9S - Unspecified intracranial injury with loss of consciousness of unspecified duration, sequela (5) Partial small bowel obstruction Problem: Acute (6) GERD (gastroesophageal reflux disease) Problem: Chronic Qualifiers: Esophagitis presence: esophagitis presence not specified Qualified Code(s) : K21.9 - Gastro-esophageal reflux disease without esophagitis (7) Abdominal adhesions Problem: Chronic
[2017-07-06] MEDS ORDERED: oxyCODONE HCL/ACETAMINOPHEN 1 TAB TABLET PO PRN (09:01)
[2017-07-06] MEDS: DIVALPROEX SODIUM 250 MG TABLET.DR PO SCH (10:00)
[2017-07-06] MEDS: HALOPERIDOL 5 MG TABLET PO SCH ×2 (10:00→20:08)
[2017-07-06] MEDS: QUEtiapine FUMARATE 100 MG TABLET PO SCH ×2 (10:00→20:07)
[2017-07-06] MEDS: NYSTATIN 15 APPL BTL TP SCH ×2 (10:00→20:07)
[2017-07-06] MEDS: BISACODYL 5 MG TABLET.DR PO SCH (10:04)
[2017-07-06] MEDS: METOCLOPRAMIDE HCL 5 MG TABLET PO SCH ×2 (11:51→17:17)
--- NOTE | 2017-07-06 18:23 | PN ---
Dictated Progress Note - Date and Time Seen: Date: 07/06/17 Time: 18:16 - 2nd visit - Progress Note Narrative: Vital Signs - Last Taken Temp 37.0 C 07/06/17 15:06 Pulse 111 H 07/06/17 15:06 Resp 20 07/06/17 15:06 BP 155/90 07/06/17 15:06 Pulse Ox 92 07/06/17 15:06 POD#2 Exploratory laparotomy with lysis of adhesions His abdomen is distended with decreased pulmonary excursion. Abdominal film shows progress of gas through whole of small bowel now into colon and he has passed some flattus with smear of stool. Lost IV in xray so stopped DRENCHER. Earlier had tentatively advanced diet, but he vomited. Will return Reglan to IV. Has had Dulcolax which may help when it reaches colon. Impression: obstruction appears relieved but ileus persists. Unfortunately NG was lost so will have to await return of bowel function Plan:Will hold to clear liquids with IVF's--instructed to not force po if he feels full. Encourage pulmonary toilet and ambulation.
[2017-07-06] MEDS: METOCLOPRAMIDE HCL 5 MG/ML VIAL IV SCH (20:07)
[2017-07-06] MEDS ORDERED: MINERAL OIL 1 ENEMA BTL RC ONE (20:49)
[2017-07-06] MEDS ORDERED: FUROSEMIDE 10 MG/ML VIAL IV ONE (20:58)
[2017-07-06 21:11] LABS: Hematocrit 37.9 % (42.0-52.0); Hemoglobin 13.2 gm/dL (13.5-18.0); Mean Cell Volume 92.2 fl (78-100); Mean Corpuscular Hemoglobin 32.1 pg (27-31); Mean Corpuscular Hgb Conc 34.8 g/dl (32-36); Mean Platelet Volume 9.9 fl (6.0-9.5); Platelet Count 439 K/mm3 (150-450); Red Blood Count 4.11 M/mm3 (4.7-6.0); Red Cell Distribution Width 13.7 % (11.5-14.0); White Blood Count 10.8 K/mm3 (4.0-10.5)
[2017-07-06 21:12] LABS: Total Cells Counted 100
[2017-07-06 21:21] LABS: Anion Gap 17.5 mmol/L (6.8-13.8); BUN/Creatinine Ratio 6.7 (9.0-21.6); Calcium * 8.8 mg/dL (7.9-10.9); Carbon Dioxide 24.1 mmol/L (24-32.6); Estimated Creat Clear 145.5; Potassium 3.6 mmol/L (3.4-4.6)
[2017-07-06 22:08] LABS: Band 6 % (0-2.0); Immature Granulocyte 2 (0-1); Lymphocyte 12 % (20-51); Monocyte 15 % (0-9); Neutrophil 65 % (42-75)
[2017-07-06 22:10] LABS: Giant Platelets 1+; Platelet Estimate Normal (NORMAL); Polychromasia Trace; RBC Morphology Normal (NORMAL)
[2017-07-06 22:11] LABS: Dohle Bodies 1+; Toxic Granulation 1+
[2017-07-07] MEDS: METOCLOPRAMIDE HCL 5 MG/ML VIAL IV SCH ×4 (00:50→20:25)
[2017-07-07] MEDS ORDERED: PANTOPRAZOLE SODIUM 40 MG TABLET.EC PO SCH (07:00)
[2017-07-07 07:01] LABS: Anion Gap 12.5 mmol/L (6.8-13.8); BUN/Creatinine Ratio 7.5 (9.0-21.6); Calcium * 8.8 mg/dL (7.9-10.9); Carbon Dioxide 29.7 mmol/L (24-32.6); Estimated Creat Clear 117.4; Potassium 3.2 mmol/L (3.4-4.6)
[2017-07-07 07:06] LABS: Hematocrit 36.9 % (42.0-52.0); Hemoglobin 12.8 gm/dL (13.5-18.0); Mean Cell Volume 91.8 fl (78-100); Mean Corpuscular Hemoglobin 31.8 pg (27-31); Mean Corpuscular Hgb Conc 34.7 g/dl (32-36); Mean Platelet Volume 10.7 fl (6.0-9.5); Platelet Count 437 K/mm3 (150-450); Red Blood Count 4.02 M/mm3 (4.7-6.0); Red Cell Distribution Width 13.9 % (11.5-14.0); White Blood Count 10.4 K/mm3 (4.0-10.5)
[2017-07-07 07:12] LABS: Total Cells Counted 100
[2017-07-07] MEDS ORDERED: POTASSIUM CHLORIDE 20 MEQ TABLET.SA PO ONE (07:12)
[2017-07-07 07:30] LABS: Band 13 % (0-2.0); Immature Granulocyte 2 (0-1); Lymphocyte 14 % (20-51); Monocyte 12 % (0-9); Neutrophil 59 % (42-75); Neutrophil # 6.1 K/mm3 (1.3-6.0)
[2017-07-07 07:39] LABS: Platelet Estimate Normal (NORMAL)
[2017-07-07 07:40] LABS: RBC Morphology Normal (NORMAL); Toxic Granulation Trace
[2017-07-07] MEDS: QUEtiapine FUMARATE 100 MG TABLET PO SCH ×2 (09:55→20:28)
[2017-07-07] MEDS: HALOPERIDOL 5 MG TABLET PO SCH ×2 (09:55→20:26)
[2017-07-07] MEDS: DIVALPROEX SODIUM 250 MG TABLET.DR PO SCH (09:55)
[2017-07-07] MEDS: NYSTATIN 15 APPL BTL TP SCH ×2 (09:56→20:28)
[2017-07-07] MEDS: BISACODYL 5 MG TABLET.DR PO SCH (09:56)
--- NOTE | 2017-07-07 12:20 | PN ---
Subjective - Date and Time Seen Date: 07/07/17 Time: 07:30 Subjective Narrative: Low O2 sat last night. Abdominal distension last night, relieved by NG tube. Hard small BM yesterday afternoon. Positive fluid balance in last 72 hours. Given IV lasix last night. Atelectasis on CXR last light. Spoke with Dr. Gee twice today. Abdominal film pretty good this morning. Objective - Review of Systems Generalized/Overall Review: Reports: No Symptoms Reported - patient not very uncomfortable in spite of everything. - Vitals Vitals: Last Vital Signs Selected Entries 07/06/17 07/07/17 19:43 03:46 Temperature 37.6 C H 37.3 C Temperature Oral Source Pulse Rate 117 H 129 H Respiratory 48 H 22 H Rate Respiratory Shallow Depth Blood Pressure 149/82 140/85 Blood Pressure Supine Position O2 Sat by Pulse 86 L 97 Oximetry Oxygen Delivery Room Air Nasal Cannula Method Oxygen Flow 3 2 Rate - Abnormal Lab Findings Abnormal Lab Findings: Abnormal Lab Results 07/06/17 07/06/17 07/07/17 Range/Units 21:08 21:08 06:00 WBC 10.8 H (4.0-10.5) K/mm3 RBC 4.11 L 4.02 L (4.7-6.0) M/mm3 Hgb 13.2 L 12.8 L (13.5-18.0) gm/dL Hct 37.9 L 36.9 L (42.0-52.0) % MCH 32.1 H 31.8 H (27-31) pg MPV 9.9 H 10.7 H (6.0-9.5) fl Band Neuts % (Manual) 6 H 13 H (0-2.0) % Lymphocytes % (Manual) 12 L 14 L (20-51) % Monocytes % (Manual) 15 H 12 H (0-9) % Immature Granulocytes 2 H 2 H (0-1) Neutrophils # (Manual) 7.0 H 6.1 H (1.3-6.0) K/mm3 Lymphocytes # (Manual) 1.3 L (1.5-3.5) k/mm3 Monocytes # (Manual) 1.6 H 1.2 H (0.0-1.0) k/mm3 Potassium (3.4-4.6) mmol/L Anion Gap 17.5 H (6.8-13.8) mmol/L BUN 5 L (6-23) mg/dL BUN/Creatinine Ratio 6.7 L (9.0-21.6) Random Glucose 140 H D (70-110) mg/dL 07/07/17 Range/Units 06:33 WBC (4.0-10.5) K/mm3 RBC (4.7-6.0) M/mm3 Hgb (13.5-18.0) gm/dL Hct (42.0-52.0) % MCH (27-31) pg MPV (6.0-9.5) fl Band Neuts % (Manual) (0-2.0) % Lymphocytes % (Manual) (20-51) % Monocytes % (Manual) (0-9) % Immature Granulocytes (0-1) Neutrophils # (Manual) (1.3-6.0) K/mm3 Lymphocytes # (Manual) (1.5-3.5) k/mm3 Monocytes # (Manual) (0.0-1.0) k/mm3 Potassium 3.2 L (3.4-4.6) mmol/L Anion Gap (6.8-13.8) mmol/L BUN (6-23) mg/dL BUN/Creatinine Ratio 7.5 L (9.0-21.6) Random Glucose 112 H (70-110) mg/dL - Exam Constitutional: Present: Alert, Oriented x3, Cooperative, Well developed, Well nourished, No distress ENT Exam: Present: normal ENT inspection, hearing grossly normal Neck: Present: normal inspection Respiratory: Present: lungs clear, no respiratory distress Cardiovascular/Chest: Present: regular rate, rhythm, no murmur, tachycardia Abdomen: Present: Normal bowel sounds, soft, nontender, nondistended, no hepatospenomegaly, no masses, other - NG tube Extremity: Present: normal inspection, no pedal edema Skin Exam: Present: normal color, warm/dry, no cyanosis Neurologic: Present: alert, oriented x 3 Appearance: Present: appropriate appearance, neat Cauti Physician Documentation - Urinary Catheter Management Urethral (Herron) Date of Insertion: 07/04/17 Time of Insertion: 14:15 Assessment/Plan Plan Narrative: SBO, surgically improved. will go with conservative approach and observation. continue NG and ambulation for now. Follow labs and abdominal films. Low dose IV fluids. Switch percocet to tylenol. 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 (2) Fracture of proximal ulna, closed Problem: Acute Qualifiers: Encounter type: subsequent encounter Fracture morphology: unspecified fracture morphology Laterality: right Fracture healing: with routine healing Qualified Code(s): S52.001D - Unspecified fracture of upper end of right ulna, subsequent encounter for closed fracture with routine healing (3) Seizures Problem: Chronic (4) TBI (traumatic brain injury) Problem: Chronic Qualifiers: Encounter type: sequela Loss of consciousness presence/duration: with LOC of unspecified duration Qualified Code(s): S06.9X9S - Unspecified intracranial injury with loss of consciousness of unspecified duration, sequela (5) Partial small bowel obstruction Problem: Acute (6) GERD (gastroesophageal reflux disease) Problem: Chronic Qualifiers: Esophagitis presence: esophagitis presence not specified Qualified Code(s) : K21.9 - Gastro-esophageal reflux disease without esophagitis (7) Abdominal adhesions Problem: Chronic
[2017-07-07] MEDS ORDERED: ONDANSETRON HCL/PF 2 MG/ML VIAL ONE (12:45)
[2017-07-07] MEDS ORDERED: ONDANSETRON HCL/PF 2 MG/ML VIAL IV STA (12:47)
--- NOTE | 2017-07-07 13:14 | PN ---
Subjective - Date and Time Seen Date: 07/07/17 Time: 13:10 Subjective Narrative: Bit of a rough night. Denies flatus. NG has stopped working. Objective Objective Narrative: CXR: hypoinflation AXR: ongoing ileus ABD: Distended. Drsg c/d/i. Nontender. - Vitals Vitals: Last Vital Signs Temp 37.2 C 07/07/17 08:00 Pulse 114 H 07/07/17 08:00 Resp 20 07/07/17 08:00 BP 138/88 07/07/17 08:00 Pulse Ox 93 07/07/17 10:56 - Abnormal Lab Findings Abnormal Lab Findings: Abnormal Lab Results 07/06/17 07/06/17 07/07/17 Range/Units 21:08 21:08 06:00 WBC 10.8 H (4.0-10.5) K/mm3 RBC 4.11 L 4.02 L (4.7-6.0) M/mm3 Hgb 13.2 L 12.8 L (13.5-18.0) gm/dL Hct 37.9 L 36.9 L (42.0-52.0) % MCH 32.1 H 31.8 H (27-31) pg MPV 9.9 H 10.7 H (6.0-9.5) fl Band Neuts % (Manual) 6 H 13 H (0-2.0) % Lymphocytes % (Manual) 12 L 14 L (20-51) % Monocytes % (Manual) 15 H 12 H (0-9) % Immature Granulocytes 2 H 2 H (0-1) Neutrophils # (Manual) 7.0 H 6.1 H (1.3-6.0) K/mm3 Lymphocytes # (Manual) 1.3 L (1.5-3.5) k/mm3 Monocytes # (Manual) 1.6 H 1.2 H (0.0-1.0) k/mm3 Potassium (3.4-4.6) mmol/L Anion Gap 17.5 H (6.8-13.8) mmol/L BUN 5 L (6-23) mg/dL BUN/Creatinine Ratio 6.7 L (9.0-21.6) Random Glucose 140 H D (70-110) mg/dL 07/07/17 Range/Units 06:33 WBC (4.0-10.5) K/mm3 RBC (4.7-6.0) M/mm3 Hgb (13.5-18.0) gm/dL Hct (42.0-52.0) % MCH (27-31) pg MPV (6.0-9.5) fl Band Neuts % (Manual) (0-2.0) % Lymphocytes % (Manual) (20-51) % Monocytes % (Manual) (0-9) % Immature Granulocytes (0-1) Neutrophils # (Manual) (1.3-6.0) K/mm3 Lymphocytes # (Manual) (1.5-3.5) k/mm3 Monocytes # (Manual) (0.0-1.0) k/mm3 Potassium 3.2 L (3.4-4.6) mmol/L Anion Gap (6.8-13.8) mmol/L BUN (6-23) mg/dL BUN/Creatinine Ratio 7.5 L (9.0-21.6) Random Glucose 112 H (70-110) mg/dL Cauti Physician Documentation - Urinary Catheter Management Urethral (Herron) Date of Insertion: 07/04/17 Time of Insertion: 14:15 Assessment/Plan Plan Narrative: A: Postop ileus P: Will replace NG tube.
[2017-07-07] MEDS: PANTOPRAZOLE SODIUM 40 MG in NORMAL SALINE 100 ML IV SCH (13:58)
[2017-07-07] MEDS: POTASSIUM CHLORIDE 20 MEQ in DEXTROSE 5%-NORMAL SALINE 990 ML IV SCH (13:58)
[2017-07-07 15:24] LABS: Albumin * 2.4 gm/dl (3.4-5.0); Bilirubin Direct 0.3 mg/dL (0.0-0.3); Bilirubin, Total 0.8 mg/dL (0.0-1.1); Bilirubin,Indirect 0.5 mg/dL (0.1-0.7); Magnesium 1.2 mg/dL (1.2-2.8); Phosphorus 3.9 mg/dL (2.2-4.2); Total Protein 6.5 gm/dL (6.2-8.2)
[2017-07-07] MEDS ORDERED: POTASSIUM PHOS,M-BASIC-D-BASIC 18 MM, ELECTROLYTE SOLUTION,INJ 20 ML, MULTIVIT INFUSN,A... IV SCH ×6 (17:00)
--- NOTE | 2017-07-07 17:03 | PN ---
Subjective - Date and Time Seen Date: 07/07/17 Time: 16:42 Subjective Narrative: Marion has no concerns. He reports breathing better. Overnight he did get short of breath. Was on oxygen. Was given lasix and had good diuresis. Objective - Vitals Vitals: Last Vital Signs Temp 37.2 C 07/07/17 12:40 Pulse 104 H 07/07/17 12:40 Resp 20 07/07/17 12:40 BP 139/74 07/07/17 12:40 Pulse Ox 91 07/07/17 12:40 - Abnormal Lab Findings Abnormal Lab Findings: Abnormal Lab Results 07/06/17 07/06/17 07/07/17 Range/Units 21:08 21:08 06:00 WBC 10.8 H (4.0-10.5) K/mm3 RBC 4.11 L 4.02 L (4.7-6.0) M/mm3 Hgb 13.2 L 12.8 L (13.5-18.0) gm/dL Hct 37.9 L 36.9 L (42.0-52.0) % MCH 32.1 H 31.8 H (27-31) pg MPV 9.9 H 10.7 H (6.0-9.5) fl Band Neuts % (Manual) 6 H 13 H (0-2.0) % Lymphocytes % (Manual) 12 L 14 L (20-51) % Monocytes % (Manual) 15 H 12 H (0-9) % Immature Granulocytes 2 H 2 H (0-1) Neutrophils # (Manual) 7.0 H 6.1 H (1.3-6.0) K/mm3 Lymphocytes # (Manual) 1.3 L (1.5-3.5) k/mm3 Monocytes # (Manual) 1.6 H 1.2 H (0.0-1.0) k/mm3 Potassium (3.4-4.6) mmol/L Anion Gap 17.5 H (6.8-13.8) mmol/L BUN 5 L (6-23) mg/dL BUN/Creatinine Ratio 6.7 L (9.0-21.6) Random Glucose 140 H D (70-110) mg/dL ALT (19-67) U/L Albumin (3.4-5.0) gm/dl 07/07/17 07/07/17 Range/Units 06:00 06:33 WBC (4.0-10.5) K/mm3 RBC (4.7-6.0) M/mm3 Hgb (13.5-18.0) gm/dL Hct (42.0-52.0) % MCH (27-31) pg MPV (6.0-9.5) fl Band Neuts % (Manual) (0-2.0) % Lymphocytes % (Manual) (20-51) % Monocytes % (Manual) (0-9) % Immature Granulocytes (0-1) Neutrophils # (Manual) (1.3-6.0) K/mm3 Lymphocytes # (Manual) (1.5-3.5) k/mm3 Monocytes # (Manual) (0.0-1.0) k/mm3 Potassium 3.2 L (3.4-4.6) mmol/L Anion Gap (6.8-13.8) mmol/L BUN (6-23) mg/dL BUN/Creatinine Ratio 7.5 L (9.0-21.6) Random Glucose 112 H (70-110) mg/dL ALT 13 L (19-67) U/L Albumin 2.4 L (3.4-5.0) gm/dl - Exam Constitutional: Present: Alert, Oriented x3, Cooperative, Other - NG tube in place ENT Exam: Present: hearing grossly normal Respiratory: Present: lungs clear, normal breath sounds Cardiovascular/Chest: Present: regular rate, rhythm, no murmur Abdomen: Present: tender - mild diffuse tenderness, hypoactive Extremity: Absent: lower extremity edema Skin Exam: Present: normal color, warm/dry, no cyanosis Cauti Physician Documentation - Urinary Catheter Management Urethral (Herron) Date of Insertion: 07/04/17 Time of Insertion: 14:15 Assessment/Plan Plan Narrative: Marino Chen is a 47 yo male with: 1) Small Bowel Obstruction - Currently NPO. Had surgery with removal of adhesions on Tuesday. He has not had bowel movements since suggesting post op ileus. Waiting for bowels to wake up. He has been NPO for several days, PIC line placed today for TPN. Will start TPN with pharmacy and shingle catcher. 2) Right proximal humerus fracture - Splint 3) Acute respiratory failure with hypoxia - Currently resolved, back on room air. Lungs clear. Suspect fluid overload due to continuous fluids while NPO. He was placed on oxygen and given lasix. Will start TPN and plan to discontinue IVFs. 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 - Problems/Diagnosis (1) Small bowel obstruction Problem: Acute (2) Fracture of proximal ulna, closed Problem: Acute Qualifiers: Encounter type: subsequent encounter Fracture morphology: unspecified fracture morphology Laterality: right Fracture healing: with routine healing Qualified Code(s): S52.001D - Unspecified fracture of upper end of right ulna, subsequent encounter for closed fracture with routine healing (3) dianeticist shunt Problem: Acute (4) Acute respiratory failure Problem: Acute
--- NOTE | 2017-07-07 20:15 | OR ---
Anesthesia Procedure Note - Anesthesia Procedure Note Date of Service: 07/07/17 Narrative: Vital Signs - Last Taken Temp 37.2 C 07/07/17 16:51 Pulse 95 07/07/17 16:51 Resp 20 07/07/17 16:51 BP 129/70 07/07/17 16:51 Pulse Ox 93 07/07/17 16:51 O2 Oxygen Delivery Method Room Air 07/07/17 20:13 ANESTHESIA PROCEDURE NOTE Date of Procedure: 07/07/2017. Time of procedure: 1530. Performed by: Chester Jeffrey CRNA Lug Breaker And Wire Puller: None. Preprocedure diagnosis: Small bowel obstruction, need for TPN IV therapy. Post procedure diagnosis: Same. Procedure: Ultrasound guided PICC line insertion. Indications: This is a 47-year-old male in need of a PICC line for IV TPN. Findings: See below. Details of the procedure: Under ultrasound guidance the left basilic vein vein was visualized. Skin over the intended target site was cleansed with ChloraPrep. The patient was draped in sterile fashion. The skin over the intended target site was anesthetized with 1% lidocaine. Under direct ultrasound visualization the vein was cannulated with a 22-gauge IV catheter. Dark red blood was noted from the catheter. A 0.45 mm guidewire was inserted through the IV catheter and IV catheter was removed intact. A skin david was made at the guidewire insertion site with a scalpel. The 5 Congolese vessel dilator was inserted over the guidewire and the guidewire was removed intact. Dark red blood was noted from the vessel dilator. The PICC line was inserted to a depth of 47 cm and the vessel dilator was peeled away. Dark red blood was noted from both ports of the PICC line. PICC line was flushed with sterile normal saline solution. A sterile dressing was then applied over the PICC line insertion site. EBL: Minimal. Fluids: N/A. Specimen: N/A. Post procedure condition: The patient tolerated the procedure well. No complications were noted. Chest x-ray revealed adequate placement of the the placement of the PICC line in the central venous system at the aorto caval junction. Thank you for this consultation. Chester Jeffrey CRNA
[2017-07-08] MEDS: METOCLOPRAMIDE HCL 5 MG/ML VIAL IV SCH ×4 (01:09→18:52)
[2017-07-08] MEDS: PANTOPRAZOLE SODIUM 40 MG in NORMAL SALINE 100 ML IV SCH ×2 (01:12→13:44)
[2017-07-08 05:56] LABS: Hematocrit 33.1 % (42.0-52.0); Hemoglobin 11.4 gm/dL (13.5-18.0); Mean Cell Volume 92.7 fl (78-100); Mean Corpuscular Hemoglobin 31.9 pg (27-31); Mean Corpuscular Hgb Conc 34.4 g/dl (32-36); Mean Platelet Volume 9.9 fl (6.0-9.5); Neutrophil % 43.6 % (42-75.0); Platelet Count 386 K/mm3 (150-450); Red Blood Count 3.57 M/mm3 (4.7-6.0); Red Cell Distribution Width 14.2 % (11.5-14.0); White Blood Count 9.1 K/mm3 (4.0-10.5)
[2017-07-08 06:07] LABS: Total Cells Counted 100
[2017-07-08 06:26] LABS: Basophil 2 % (0-1); Hypersegmented Polys 2+; Lymphocyte 12 % (20-51); Monocyte 13 % (0-9); Neutrophil 73 % (42-75); Neutrophil # 6.6 K/mm3 (1.3-6.0); Platelet Estimate Increased (NORMAL)
[2017-07-08 06:27] LABS: Rouleaux 1+; Toxic Granulation 2+
[2017-07-08 06:32] LABS: Albumin * 2.1 gm/dl (3.4-5.0); Anion Gap 12.4 mmol/L (6.8-13.8); BUN/Creatinine Ratio 15.4 (9.0-21.6); Bilirubin, Total 0.8 mg/dL (0.0-1.1); Ca. Corrected For Albumin 9.6 mg/dL (8.4-10.2); Calcium * 8.4 mg/dL (7.9-10.9); Estimated Creat Clear 119.9; Magnesium 1.4 mg/dL (1.2-2.8); Phosphorus 2.8 mg/dL (2.2-4.2); Potassium 2.8 mmol/L (3.4-4.6); Total Protein 5.9 gm/dL (6.2-8.2)
[2017-07-08 06:41] LABS: Carbon Dioxide 31.4 mmol/L (24-32.6)
[2017-07-08] MEDS: POTASSIUM CHLORIDE 100 ML IV SCH ×4 (10:30→13:36)
[2017-07-08] MEDS: QUEtiapine FUMARATE 100 MG TABLET PO SCH ×2 (10:31→20:00)
[2017-07-08] MEDS: HALOPERIDOL 5 MG TABLET PO SCH ×2 (10:31→20:00)
[2017-07-08] MEDS: DIVALPROEX SODIUM 250 MG TABLET.DR PO SCH (10:33)
[2017-07-08] MEDS: BISACODYL 5 MG TABLET.DR PO SCH (10:33)
[2017-07-08] MEDS: NYSTATIN 15 APPL BTL TP SCH ×2 (10:42→20:01)
[2017-07-08] MEDS: FAT EMULSIONS IV SCH (10:42)
[2017-07-08] MEDS ORDERED: ELECTROLYTE IV SCH ×6 (17:00)
[2017-07-08] MEDS ORDERED: [UNRECOGNIZED DRUG - OTHER] IV SCH ×6 (17:00)
[2017-07-08] MEDS ORDERED: POTASSIUM PHOS M BASIC D BASIC IV SCH ×6 (17:00)
[2017-07-08] MEDS: INSULIN LISPRO 100 UNITS/ML VIAL SC SCH ×2 (17:20→23:12)
[2017-07-08] MEDS: POTASSIUM CHLORIDE 20 MEQ in DEXTROSE 5%-NORMAL SALINE 990 ML IV SCH (18:33)
[2017-07-08] MEDS: ACETAMINOPHEN 325 MG TABLET PO PRN (18:48)
--- NOTE | 2017-07-08 23:43 | PN ---
Subjective - Date and Time Seen Date: 07/08/17 Time: 12:30 Subjective Narrative: Marino reports passing gas today. No stools. Reports no appetite. No fever or chills. No abdominal pain. Objective - Vitals Vitals: Last Vital Signs Temp 36.9 C 07/08/17 22:53 Pulse 81 07/08/17 22:53 Resp 20 07/08/17 22:53 BP 141/75 07/08/17 22:53 Pulse Ox 92 07/08/17 22:53 - Abnormal Lab Findings Abnormal Lab Findings: Abnormal Lab Results 07/08/17 07/08/17 Range/Units 05:51 05:51 RBC 3.57 L (4.7-6.0) M/mm3 Hgb 11.4 L (13.5-18.0) gm/dL Hct 33.1 L (42.0-52.0) % MCH 31.9 H (27-31) pg RDW 14.2 H (11.5-14.0) % MPV 9.9 H (6.0-9.5) fl Lymphocytes % (Manual) 12 L (20-51) % Monocytes % 18.2 H (0.0-9) % Monocytes % (Manual) 13 H (0-9) % Basophils % (Manual) 2 H (0-1) % Neutrophils # (Manual) 6.6 H (1.3-6.0) K/mm3 Lymphocytes # (Manual) 1.1 L (1.5-3.5) k/mm3 Monocytes # 1.7 H (0.0-1.0) k/mm3 Monocytes # (Manual) 1.2 H (0.0-1.0) k/mm3 Basophils # (Manual) 0.2 H (0.0-0.1) k/mm3 Platelet Estimate Increased H (NORMAL) Potassium 2.8 L (3.4-4.6) mmol/L Random Glucose 114 H (70-110) mg/dL ALT 12 L (19-67) U/L Total Protein 5.9 L (6.2-8.2) gm/dL Albumin 2.1 L (3.4-5.0) gm/dl - Exam Constitutional: Present: Alert, Oriented x3, Cooperative ENT Exam: Present: hearing grossly normal Respiratory: Present: lungs clear, normal breath sounds Cardiovascular/Chest: Present: regular rate, rhythm, no murmur Abdomen: Present: hypoactive Cauti Physician Documentation - Urinary Catheter Management Urethral (Herron) Date of Insertion: 07/04/17 Time of Insertion: 14:15 Assessment/Plan Plan Narrative: Marino Chen is a 47 yo male with: 1) Small Bowel Obstruction - Currently NPO. Had surgery with removal of adhesions on Tuesday. Now passing gas. Has PIC line with TPN managed with watch assembly instructor and pharmacy. Awaiting regain of bowel function following surgery. 2) Right proximal humerus fracture - Splint 3) Acute respiratory failure with hypoxia - Resolved. Minimizing additional fluid. He is getting only maintainence fluids through TPN, minimizing all other fluids. 4) Hypokalemia - Replacing potassium, with 40meq in K riders and 60meq through TPN. 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
[2017-07-09] MEDS: PANTOPRAZOLE SODIUM 40 MG in NORMAL SALINE 100 ML IV SCH ×2 (01:51→14:08)
[2017-07-09] MEDS: METOCLOPRAMIDE HCL 5 MG/ML VIAL IV SCH ×4 (01:51→19:08)
[2017-07-09] MEDS: ACETAMINOPHEN 325 MG TABLET PO PRN ×2 (02:37→14:02)
[2017-07-09 06:44] LABS: Anion Gap 14.4 mmol/L (6.8-13.8); BUN/Creatinine Ratio 22.4 (9.0-21.6); Bilirubin, Total 0.8 mg/dL (0.0-1.1); Ca. Corrected For Albumin 9.6 mg/dL (8.4-10.2); Calcium * 8.3 mg/dL (7.9-10.9); Carbon Dioxide 24.8 mmol/L (24-32.6); Magnesium 1.4 mg/dL (1.2-2.8); Phosphorus 3.4 mg/dL (2.2-4.2); Potassium 3.2 mmol/L (3.4-4.6)
[2017-07-09] MEDS: INSULIN LISPRO 100 UNITS/ML VIAL SC SCH ×3 (07:03→17:36)
[2017-07-09] MEDS: HALOPERIDOL 5 MG TABLET PO SCH ×2 (09:48→20:51)
[2017-07-09] MEDS: BISACODYL 5 MG TABLET.DR PO SCH (09:48)
[2017-07-09] MEDS: DIVALPROEX SODIUM 250 MG TABLET.DR PO SCH (09:49)
[2017-07-09] MEDS: QUEtiapine FUMARATE 100 MG TABLET PO SCH ×2 (09:49→20:51)
[2017-07-09] MEDS: NYSTATIN 15 APPL BTL TP SCH ×2 (09:54→20:54)
[2017-07-09] MEDS: FAT EMULSIONS IV SCH (10:15)
--- NOTE | 2017-07-09 12:46 | PN ---
Subjective - Date and Time Seen Date: 07/09/17 Time: 12:41 Subjective Narrative: Pt reports having several bowel movements. No other c/o. Objective Objective Narrative: Abdomen is softer and nontender. Drsg c/d/i. NG bilious succus. - Vitals Vitals: Last Vital Signs Temp 36.8 C 07/09/17 10:00 Pulse 86 07/09/17 10:00 Resp 20 07/09/17 10:00 BP 144/84 07/09/17 10:00 Pulse Ox 95 07/09/17 10:00 - Abnormal Lab Findings Abnormal Lab Findings: Abnormal Lab Results 07/09/17 Range/Units 05:40 Potassium 3.2 L (3.4-4.6) mmol/L Anion Gap 14.4 H (6.8-13.8) mmol/L Est GFR (Non-Af Amer) 135 H D (60-130) mL/min BUN/Creatinine Ratio 22.4 H (9.0-21.6) Random Glucose 113 H (70-110) mg/dL ALT 10 L (19-67) U/L Total Protein 6.0 L (6.2-8.2) gm/dL Albumin 2.0 L (3.4-5.0) gm/dl Cauti Physician Documentation - Urinary Catheter Management Urethral (Herron) Date of Insertion: 07/04/17 Time of Insertion: 14:15 Assessment/Plan Plan Narrative: A: Significant improvement P: Will DC NG. Go slowly on diet advancement. The patient has TBI enteropathy and colopathy. The sigmoid was noted to be paper thin at laparotomy. He needs to accommodate slowly. Will start with clears with supplement and continue TPN.
[2017-07-09] MEDS ORDERED: ELECTROLYTE IV SCH ×6 (17:00)
[2017-07-09] MEDS ORDERED: POTASSIUM PHOS M BASIC D BASIC IV SCH ×6 (17:00)
[2017-07-09] MEDS ORDERED: [UNRECOGNIZED DRUG - OTHER] IV SCH ×6 (17:00)
--- NOTE | 2017-07-09 20:42 | PN ---
Subjective - Date and Time Seen Date: 07/09/17 Time: 20:30 Subjective Narrative: Mr. Chen seen and he is alert and in no distress. Mother is at bedside. NG tube Dc'd 07/09 and diet was advanced by surgery. He reports that he tolerated clear liquid diet and asks when he can be advanced. He was able to ambulate 4 times today in the halls. No other issues according to nursing. Objective - Vitals Vitals: Last Vital Signs Temp 36.4 C L 07/09/17 18:44 Pulse 81 07/09/17 18:44 Resp 20 07/09/17 18:44 BP 142/76 07/09/17 18:44 Pulse Ox 95 07/09/17 18:44 - Abnormal Lab Findings Abnormal Lab Findings: Abnormal Lab Results 07/09/17 Range/Units 05:40 Potassium 3.2 L (3.4-4.6) mmol/L Anion Gap 14.4 H (6.8-13.8) mmol/L Est GFR (Non-Af Amer) 135 H D (60-130) mL/min BUN/Creatinine Ratio 22.4 H (9.0-21.6) Random Glucose 113 H (70-110) mg/dL ALT 10 L (19-67) U/L Total Protein 6.0 L (6.2-8.2) gm/dL Albumin 2.0 L (3.4-5.0) gm/dl - Exam Constitutional: Present: Alert, Oriented x3, Cooperative, No distress ENT Exam: Present: normal ENT inspection, moist mucous membranes Neck: Present: non-tender, full range of motion Breasts: Present: Exam deferred Respiratory: Present: no accessory muscle use, No wheezing Cardiovascular/Chest: Present: regular rate, rhythm, no chest tenderness Abdomen: Present: Normal bowel sounds, soft, nontender /Rectal: Present: Exam deferred Extremity: Present: normal range of motion, non-tender, no pedal edema Skin Exam: Present: warm/dry, no cyanosis, diaphoresis Lymphatic: Present: no adenopathy Neurologic: Present: alert, normal mood/affect, oriented x 3 Appearance: Present: appropriate appearance, appropriate insight Eye contact: Present: cooperative, good eye contact, decreased rate of speech Thoughts: Present: no apparent hallucination Cauti Physician Documentation - Urinary Catheter Management Urethral (Herron) Date of Insertion: 07/04/17 Time of Insertion: 14:15 Assessment/Plan Plan Narrative: Marino Chen is a 47 yo male with: 1) Small Bowel Obstruction - Was NPO with NG tube. Surgery advanced his diet to clears and NG discontinued. He tolerated the clears. Had surgery with removal of adhesions on Tuesday. Now passing gas. Has PICC line with TPN managed with shrimp boat captain and pharmacy. Awaiting regain of bowel function following surgery. 2) Right proximal humerus fracture - Splint 3) Acute respiratory failure with hypoxia - Resolved. Minimizing additional fluid. He is getting only maintainance fluids through TPN, minimizing all other fluids. 4) Hypokalemia - Replacing potassium, with 40meq in K riders and 60meq through TPN. 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 - Problems/Diagnosis (1) Small bowel obstruction Problem: Acute (2) finish sander shunt Problem: Acute (3) Acute respiratory failure Problem: Acute (4) Fracture of proximal ulna, closed Problem: Acute Qualifiers: Encounter type: subsequent encounter Fracture morphology: unspecified fracture morphology Laterality: right Fracture healing: with routine healing Qualified Code(s): S52.001D - Unspecified fracture of upper end of right ulna, subsequent encounter for closed fracture with routine healing (5) Seizures Problem: Chronic (6) TBI (traumatic brain injury) Problem: Chronic Qualifiers: Encounter type: sequela Loss of consciousness presence/duration: with LOC of unspecified duration Qualified Code(s): S06.9X9S - Unspecified intracranial injury with loss of consciousness of unspecified duration, sequela (7) GERD (gastroesophageal reflux disease) Problem: Chronic Qualifiers: Esophagitis presence: esophagitis presence not specified Qualified Code(s) : K21.9 - Gastro-esophageal reflux disease without esophagitis
[2017-07-10] MEDS: INSULIN LISPRO 100 UNITS/ML VIAL SC SCH ×2 (00:15→05:35)
[2017-07-10] MEDS: PANTOPRAZOLE SODIUM 40 MG in NORMAL SALINE 100 ML IV SCH (00:16)
[2017-07-10] MEDS: METOCLOPRAMIDE HCL 5 MG/ML VIAL IV SCH ×4 (00:16→18:21)
[2017-07-10 06:21] LABS: Albumin * 2.1 gm/dl (3.4-5.0); BUN/Creatinine Ratio 18.2 (9.0-21.6); Bilirubin, Total 0.8 mg/dL (0.0-1.1); Ca. Corrected For Albumin 9.4 mg/dL (8.4-10.2); Calcium * 8.2 mg/dL (7.9-10.9); Magnesium 1.6 mg/dL (1.2-2.8); Phosphorus 3.6 mg/dL (2.2-4.2); Potassium 3.2 mmol/L (3.4-4.6)
--- NOTE | 2017-07-10 06:23 | PN ---
Subjective - Date and Time Seen Date: 07/10/17 Time: 06:19 Subjective Narrative: Mr. Chen examined this am. Says he feels much better. Denies Abdominal pain & nausea. Abdomen is soft and bowels are moving. Still on clears. Surgery is following pt. Objective - Vitals Vitals: Last Vital Signs Temp 37.3 C 07/10/17 02:49 Pulse 75 07/10/17 02:49 Resp 18 07/10/17 02:49 BP 134/72 07/10/17 02:49 Pulse Ox 92 07/10/17 02:49 - Abnormal Lab Findings Abnormal Lab Findings: Abnormal Lab Results 07/09/17 Range/Units 05:40 Potassium 3.2 L (3.4-4.6) mmol/L Anion Gap 14.4 H (6.8-13.8) mmol/L Est GFR (Non-Af Amer) 135 H D (60-130) mL/min BUN/Creatinine Ratio 22.4 H (9.0-21.6) Random Glucose 113 H (70-110) mg/dL ALT 10 L (19-67) U/L Total Protein 6.0 L (6.2-8.2) gm/dL Albumin 2.0 L (3.4-5.0) gm/dl - Exam Constitutional: Present: Alert, Oriented x3, Cooperative, No distress ENT Exam: Present: normal ENT inspection, moist mucous membranes Neck: Present: non-tender, full range of motion Respiratory: Present: lungs clear, No rales, No wheezing Cardiovascular/Chest: Present: regular rate, rhythm, no chest tenderness, no edema Abdomen: Present: Normal bowel sounds, soft, nontender Extremity: Present: no pedal edema, other - Splint on RUE Skin Exam: Present: warm/dry, no cyanosis, diaphoresis Lymphatic: Present: no adenopathy Neurologic: Present: alert, normal mood/affect Appearance: Present: appropriate insight Eye contact: Present: cooperative, decreased rate of speech Thoughts: Present: no apparent hallucination Cauti Physician Documentation - Urinary Catheter Management Urethral (Herron) Date of Insertion: 07/04/17 Time of Insertion: 14:15 Assessment/Plan Plan Narrative: Marino Chen is a 47 yo male with: 1) Small Bowel Obstruction - Was NPO with NG tube. Surgery advanced his diet to clears and NG discontinued on 07/09/17. He tolerated the clears. Had surgery with removal of adhesions on Thursday 07/05, Now passing gas & bowels are moving. Has PICC line with TPN managed with java programming professor and pharmacy. Awaiting regain of bowel function following surgery. 2) Right proximal humerus fracture - Had ORIF of R olecranon on 06/28/17, Has a Splint, bandage and sling for RUE 3) Acute respiratory failure with hypoxia - Resolved. Minimizing additional fluid. He is getting only maintenance fluids through TPN, minimizing all other fluids. 4) Hypokalemia - 3.2 on 07/09, Replacing potassium 60meq through TPN. awaiting labs this am to give additional replacement. BMP in am. 5) INFERTILITY NURSE Shunt - Intraperitoneal shunt was evaluated during surgery and was free floating without complications and was not related to adhesions. - Problems/Diagnosis (1) Small bowel obstruction Problem: Acute (2) quality checker shunt Problem: Acute (3) Acute respiratory failure Problem: Acute (4) Fracture of proximal ulna, closed Problem: Acute Qualifiers: Encounter type: subsequent encounter Fracture morphology: unspecified fracture morphology Laterality: right Fracture healing: with routine healing Qualified Code(s): S52.001D - Unspecified fracture of upper end of right ulna, subsequent encounter for closed fracture with routine healing (5) Seizures Problem: Chronic (6) TBI (traumatic brain injury) Problem: Chronic Qualifiers: Encounter type: sequela Loss of consciousness presence/duration: with LOC of unspecified duration Qualified Code(s): S06.9X9S - Unspecified intracranial injury with loss of consciousness of unspecified duration, sequela (7) GERD (gastroesophageal reflux disease) Problem: Chronic Qualifiers: Esophagitis presence: esophagitis presence not specified Qualified Code(s) : K21.9 - Gastro-esophageal reflux disease without esophagitis
[2017-07-10 06:32] LABS: Anion Gap 6.9 mmol/L (6.8-13.8); Carbon Dioxide 23.3 mmol/L (24-32.6)
[2017-07-10] MEDS ORDERED: POTASSIUM CHLORIDE 20 MEQ TABLET.SA PO ONE (07:51)
[2017-07-10] MEDS: QUEtiapine FUMARATE 100 MG TABLET PO SCH ×2 (09:12→20:41)
[2017-07-10] MEDS: BISACODYL 5 MG TABLET.DR PO SCH (09:12)
[2017-07-10] MEDS: FAT EMULSIONS IV SCH (09:13)
[2017-07-10] MEDS: HALOPERIDOL 5 MG TABLET PO SCH ×2 (09:13→20:42)
[2017-07-10] MEDS: DIVALPROEX SODIUM 250 MG TABLET.DR PO SCH (09:13)
[2017-07-10] MEDS: POTASSIUM CHLORIDE 40 MEQ in NORMAL SALINE 1,000 ML IV SCH ×2 (09:13→17:20)
[2017-07-10] MEDS: NYSTATIN 15 APPL BTL TP SCH ×2 (09:26→20:42)
--- NOTE | 2017-07-10 10:19 | PN ---
Subjective - Date and Time Seen Date: 07/10/17 Time: 10:18 Subjective Narrative: No new c/o. Tolerating clears. +BM Objective Objective Narrative: ABD: soft, nontender, drsg c/d/i - Vitals Vitals: Last Vital Signs Temp 36.8 C 07/10/17 10:09 Pulse 88 07/10/17 10:09 Resp 20 07/10/17 10:09 BP 152/76 07/10/17 10:09 Pulse Ox 95 07/10/17 10:09 - Abnormal Lab Findings Abnormal Lab Findings: Abnormal Lab Results 07/10/17 Range/Units 05:40 Sodium 131 L (132-142) mmol/L Potassium 3.2 L (3.4-4.6) mmol/L Carbon Dioxide 23.3 L (24-32.6) mmol/L Est GFR (Non-Af Amer) 138 H (60-130) mL/min Random Glucose 130 H (70-110) mg/dL Total Protein 6.0 L (6.2-8.2) gm/dL Albumin 2.1 L (3.4-5.0) gm/dl Cauti Physician Documentation - Urinary Catheter Management Urethral (Herron) Date of Insertion: 07/04/17 Time of Insertion: 14:15 Assessment/Plan Plan Narrative: A: Ongoing slow progress P: Will advance to fulls
[2017-07-10] MEDS: ACETAMINOPHEN 325 MG TABLET PO PRN (19:31)
[2017-07-10] MEDS: PANTOPRAZOLE SODIUM 40 MG TABLET.EC PO SCH (20:42)
[2017-07-11] MEDS: METOCLOPRAMIDE HCL 5 MG/ML VIAL IV SCH ×4 (00:18→20:38)
[2017-07-11] MEDS: POTASSIUM CHLORIDE 40 MEQ in NORMAL SALINE 1,000 ML IV SCH ×4 (00:20→15:58)
[2017-07-11 06:00] LABS: Hematocrit 32.6 % (42.0-52.0); Hemoglobin 11.1 gm/dL (13.5-18.0); Mean Cell Volume 93.4 fl (78-100); Mean Corpuscular Hemoglobin 31.8 pg (27-31); Platelet Count 360 K/mm3 (150-450); Red Blood Count 3.49 M/mm3 (4.7-6.0); Red Cell Distribution Width 14.1 % (11.5-14.0); White Blood Count 7.4 K/mm3 (4.0-10.5)
[2017-07-11 06:16] LABS: Anion Gap 14.6 mmol/L (6.8-13.8); BUN/Creatinine Ratio 10.6 (9.0-21.6); Calcium * 8.6 mg/dL (7.9-10.9); Carbon Dioxide 22.4 mmol/L (24-32.6); Estimated Creat Clear 165.4
[2017-07-11] MEDS: PANTOPRAZOLE SODIUM 40 MG TABLET.EC PO SCH ×2 (07:13→20:55)
[2017-07-11] MEDS: HALOPERIDOL 5 MG TABLET PO SCH ×2 (09:28→20:55)
[2017-07-11] MEDS: BISACODYL 5 MG TABLET.DR PO SCH (09:28)
[2017-07-11] MEDS: NYSTATIN 15 APPL BTL TP SCH ×2 (09:28→20:56)
[2017-07-11] MEDS: DIVALPROEX SODIUM 250 MG TABLET.DR PO SCH (09:28)
[2017-07-11] MEDS: QUEtiapine FUMARATE 100 MG TABLET PO SCH ×2 (09:29→20:55)
[2017-07-11] MEDS: ACETAMINOPHEN 325 MG TABLET PO PRN (09:33)
--- NOTE | 2017-07-11 10:09 | PN ---
Subjective - Date and Time Seen Date: 07/11/17 Time: 10:07 Subjective Narrative: Tolerated full liquids well. No new c/o Objective Objective Narrative: ABD: soft, nontender - Vitals Vitals: Last Vital Signs Temp 36 C L 07/11/17 06:43 Pulse 73 07/11/17 06:43 Resp 20 07/11/17 06:43 BP 127/72 07/11/17 06:43 Pulse Ox 95 07/11/17 06:43 - Abnormal Lab Findings Abnormal Lab Findings: Abnormal Lab Results 07/11/17 07/11/17 Range/Units 05:40 05:40 RBC 3.49 L (4.7-6.0) M/mm3 Hgb 11.1 L (13.5-18.0) gm/dL Hct 32.6 L (42.0-52.0) % MCH 31.8 H (27-31) pg RDW 14.1 H (11.5-14.0) % MPV 10.0 H (6.0-9.5) fl Chloride 107 H (97-106) mmol/L Carbon Dioxide 22.4 L (24-32.6) mmol/L Anion Gap 14.6 H (6.8-13.8) mmol/L Est GFR (Non-Af Amer) 138 H (60-130) mL/min Cauti Physician Documentation - Urinary Catheter Management Urethral (Herron) Date of Insertion: 07/04/17 Time of Insertion: 14:15 Assessment/Plan Plan Narrative: A: Ongoing improvement P: Advance to regular diet
--- NOTE | 2017-07-11 13:56 | PN ---
Subjective - Date and Time Seen Date: 07/11/17 Time: 13:52 Subjective Narrative: Patient seen and examined at bedside this morning. Patient admits that he feels much better and feels like he is almost back to his baseline. Patient is tolerating a full liquid diet without issues or concerns. Objective - Review of Systems Generalized/Overall Review: Reports: No Symptoms Reported EENTM: Reports: No Symptoms Reported Respiratory: Reports: No Symptoms Reported Cardiac: Reports: No Symptoms Reported Abdominal: Reports: No Symptoms Reported Genitourinary Symptoms: Reports: No Symptoms Reported Musculoskeletal Complaints: Reports: No Symptoms Reported Neurological: Reports: No Symptoms Reported Skin: Reports: No Symptoms Reported Endocrine: Reports: No Symptoms Reported Misc: All systems neg except as marked - Vitals Vitals: Last Vital Signs Temp 36.4 C L 07/11/17 10:44 Pulse 83 07/11/17 10:44 Resp 24 H 07/11/17 10:44 BP 150/82 07/11/17 10:44 Pulse Ox 98 07/11/17 10:44 - Abnormal Lab Findings Abnormal Lab Findings: Abnormal Lab Results 07/11/17 07/11/17 Range/Units 05:40 05:40 RBC 3.49 L (4.7-6.0) M/mm3 Hgb 11.1 L (13.5-18.0) gm/dL Hct 32.6 L (42.0-52.0) % MCH 31.8 H (27-31) pg RDW 14.1 H (11.5-14.0) % MPV 10.0 H (6.0-9.5) fl Chloride 107 H (97-106) mmol/L Carbon Dioxide 22.4 L (24-32.6) mmol/L Anion Gap 14.6 H (6.8-13.8) mmol/L Est GFR (Non-Af Amer) 138 H (60-130) mL/min - Exam Constitutional: Present: Alert, Cooperative, No distress ENT Exam: Present: moist mucous membranes Respiratory: Present: lungs clear, normal breath sounds, no respiratory distress , no accessory muscle use Cardiovascular/Chest: Present: regular rate, rhythm Abdomen: Present: Normal bowel sounds, soft Skin Exam: Present: warm/dry, no cyanosis Neurologic: Present: alert, other - Baseline deficits secondary to history of TBI Eye contact: Present: cooperative Cauti Physician Documentation - Urinary Catheter Management Urethral (Herron) Date of Insertion: 07/04/17 Time of Insertion: 14:15 Assessment/Plan Plan Narrative: Patient has markedly improved over the last few days and is overall doing very well. As discussed with Dr. Garcia earlier today, we will advance the patient's diet to a regular diet and as long as the patient tolerates a regular diet without issues, he will be discharged home tomorrow 07/12/2017. - Problems/Diagnosis (1) Small bowel obstruction Problem: Resolved (2) Abdominal adhesions Problem: Chronic (3) Seizure disorder Problem: Chronic
[2017-07-11] MEDS ORDERED: WARFARIN SODIUM 7.5 MG TABLET PO SCH (17:00)
[2017-07-12] MEDS: POTASSIUM CHLORIDE 40 MEQ in NORMAL SALINE 1,000 ML IV SCH ×2 (00:39→08:03)
[2017-07-12] MEDS: METOCLOPRAMIDE HCL 5 MG/ML VIAL IV SCH ×2 (00:40→06:21)
[2017-07-12] MEDS: PANTOPRAZOLE SODIUM 40 MG TABLET.EC PO SCH (06:21)
[2017-07-12 06:30] VITALS: BP 144/77
--- NOTE | 2017-07-12 08:32 | PN ---
Subjective - Date and Time Seen Date: 07/12/17 Time: 08:29 Subjective Narrative: Tolerating regular diet. No BM x 2 days. Has history of chronic constipation. Objective Objective Narrative: Wound is clean. No s/s infection. Abdomen soft, nontender. - Vitals Vitals: Last Vital Signs Temp 37 C 07/12/17 06:46 Pulse 75 07/12/17 06:46 Resp 20 07/12/17 06:46 BP 144/77 07/12/17 06:46 Pulse Ox 97 07/12/17 06:46 Cauti Physician Documentation - Urinary Catheter Management Urethral (Herron) Date of Insertion: 07/04/17 Time of Insertion: 14:15 Assessment/Plan Plan Narrative: A: Satisfactory postop convalescence P: OK for discharge. Case d/w Dr. Adair Regular diet. May get incision wet. FU Dr. Gee next week. Miralax one dose daily.
[2017-07-12] MEDS: BISACODYL 5 MG TABLET.DR PO SCH (08:48)
[2017-07-12] MEDS: NYSTATIN 15 APPL BTL TP SCH (08:48)
[2017-07-12] MEDS: DIVALPROEX SODIUM 250 MG TABLET.DR PO SCH (08:48)
[2017-07-12] MEDS: HALOPERIDOL 5 MG TABLET PO SCH (08:48)
[2017-07-12] MEDS: QUEtiapine FUMARATE 100 MG TABLET PO SCH (08:49)
--- NOTE | 2017-07-12 09:16 | DS ---
(1) Small bowel obstruction Problem: Resolved (2) Abdominal adhesions Problem: Chronic (3) Seizure disorder Problem: Chronic Description of Stay: ADMISSION DATE: 06/30/2017 DISCHARGE DATE: 07/12/[address] 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 He has recently had his small bowel obstructions treated conservatively. Family reports that over the past 24 hours he has had increased abdominal pain. He last had a bowel movement 24 hours ago and the patient reports no gas in the last 24 hours. He is feeling nauseated but no emesis. HOSPITAL COURSE: The patient was admitted with a small bowel obstruction which was initially treated conservatively. However, patient failed to improve with conservative therapy and thus had an exploratory laparotomy with lysis of adhesions by Dr. Gee on 07/04/2017. The patient had slow improvement postoperatively and again developed a partial small bowel obstruction versus postoperative ileus. The patient was again treated conservatively and an NG tube was placed to low intermittent suction and he was also started on TPN for nutrition due to his prolonged NPO status. The patient began to improve and his NG tube was removed on 07/09/2017 and he was started on a clear liquid diet which she tolerated well so his TPN was discontinued on 07/10/2017. The patient continued to progress as expected and was tolerating a regular diet prior to discharge. The patient was discharged home with his parents in stable condition on 07/12/2017. FOLLOW-UP APPOINTMENTS: -General Surgeon at [facility], Dr. Gee, on 07/19/2017 at 1:00 PM -[facility] at [facility], Dr. Crockett, on 07/25/2017 at 10:30 AM NEW OR CHANGED MEDICATIONS: Miralax 17g PO daily, hold for loose stools DISCONTINUED MEDICATIONS: None RADIOLOGY REPORTS: Abdominal x-ray flat and upright on 06/30/2017 showed: Abnormal bowel gas pattern suggestive of small bowel obstruction. PA and lateral chest x-ray on 06/30/2017 showed: Hypoventilatory changes and basilar atelectasis versus scarring. Otherwise unremarkable. Partially visualized dilated small bowel segments in the upper abdomen with air-fluid levels. Correlate clinically for intestinal obstruction versus ileus. Abdominal x-ray flat and upright on 07/01/2017 showed: Improving partial small bowel obstruction. Abdominal x-ray flat and upright on 07/02/2017 showed: Interval worsening abnormal bowel gas pattern. Abdominal x-ray flat and upright on 07/03/2017 showed: Abnormal bowel gas pattern suggestive small bowel obstruction. Overall no significant interval change. There is some bowel gas within the colonic segments which could represent partial obstruction. Abdominal x-ray flat and upright on 07/16/2017 showed: Recent abdominal surgery. Improving distention of the small bowel. PA and lateral chest x-ray on 07/06/2017 showed: Worsening hypoinflation and basilar opacities, most likely atelectasis. Also consider infection/pneumonia. Abdominal KUB on 07/06/2017 showed: Enteric tube is seen with distal tip/side- port projecting over the left upper quadrant of the abdomen below the left hemidiaphragm likely within the stomach given its appearance. Abnormal bowel gas pattern, grossly unchanged. Abdominal x-ray flat and upright on 07/07/2017 showed: Limitations due to motion artifact and decubitus imaging. Nonspecific bowel gas pattern with dilated small bowel loops and distended large bowel loops with differential air- fluid levels. Consider early/partial small bowel obstruction versus postoperative ileus. Single view chest x-ray on 07/07/2017 showed: Worsening hypoinflation and basilar atelectasis/infiltrates. Abdominal x-ray flat and upright on 07/07/2017 showed: Persistent but improving adynamic ileus. Single view chest x-ray on 07/07/2017 showed: Adequate placement of left-sided PICC line. Abdominal x-ray flat and upright on 07/08/2017 showed: Grossly stable abnormal bowel gas pattern suggestive of potential small bowel obstruction versus postoperative ileus. No evidence for intraperitoneal free air. Single view chest x-ray on 07/08/2017 showed: Stable and basilar opacities and volume loss likely related to atelectasis. Potential underlying infection cannot be excluded and clinical correlation is advised. Medical support devices grossly stable. Procedures Performed: see notes below List Procedures: OPERATIVE REPORT DATE OF OPERATION: 07/04/2017 PREOPERATIVE DIAGNOSIS: Small bowel obstruction POSTOPERATIVE DIAGNOSIS: Small bowel obstruction from adhesions (relieved) OPERATION: Exploratory laparotomy with lysis of adhesions SURGEON: Damien Gee MD ANESTHESIA: Gen. endotracheal Chester Jeffrey CRNA INDICATIONS FOR PROCEDURE: The patient is a 47-year-old male admitted with recurrent small bowel obstruction which is not resolved with nonoperative management. FINDINGS: Chronic appearing, dense RLQ adhesions involving the area of the junction of the proximal and middle thirds of the jejunum. This within the area of obstruction. Normal-appearing distal small intestine below the obstruction. Institutional appearing sigmoid colon. Free-floating INSTRUCTIONAL TECHNOLOGIST shunt tubing. NARRATIVE OF PROCEDURE: The patient was identified preoperatively, and prior to the administration of anesthetic a multidisciplinary timeout was observed. The patient was placed supine, SCDs were applied, 2 g of intravenous Ancef was administered. General endotracheal anesthetic was administered. A Herron catheter was placed. The patient's abdomen was prepped with Betadine solution and the midline isolated with 4 sterile towels. The remainder the patient was covered with a sterile disposable drape. A 1040 drape was used. Initially a low midline surgical incision was made skirting to the right of the umbilicus. Dissection was carried through subcutaneous tissue with electrocautery until the fascia of the linea alba was identified. This was incised at the umbilicus and the peritoneum elevated and incised to allow entry into the abdomen under direct vision. There was a moderate amount of straw-colored clear peritoneal fluid present. This was suctioned. A forefinger was inserted and the incision opened. The lower abdomen was then manually and visually explored. Initially apparent was chronically dilated appearing small intestine which could be traced distally into the right lower quadrant where a mass of very dense chronic appearing adhesions were found adjacent to the apex of the cecum. The tip of the INSTRUCTIONAL TECHNOLOGIST shunt tubing was located. It was free-floating. It was then placed in the right upper quadrant out of the surgical field. Next a massively dilated sigmoid colon was encountered, which was then replaced in the left lower quadrant which exposed a segment of collapsed small intestine. Further exposure was deemed necessary, and the midline incision was extended cephalad. A Buckwalter self-retaining retractor was placed to provide stable exposure. The collapsed intestine was then traced in both directions and placed on the anterior abdominal wall. Eventually this collapsed intestine was exposed at the point where it exited the mass of adhesions in the right lower quadrant. There was seen to be angulation due to adhesions which were carefully divided under direct vision to straighten the intestine and release the adhesion between the leaves of the mesentery. This resulted in release of the obstruction with immediate berger of bowel contents from the dilated proximal bowel into the collapsed distal bowel. The area was judiciously further explored, however the adhesed bowel could not be further developed due to the chronicity and density of the adhesions. The distal end of the collapsed small intestine could not be traced definitively to the cecum, as it was seen to course behind the area of adhesions. The small bowel was then replaced anatomically. The greater omentum could not be mobilized sufficiently to provide coverage as it was adherent in the upper abdomen. The stomach could be palpated and in conjunction with the triage clinician a nasogastric tube was placed and confirmed by palpation to be in the mid stomach. The INSTRUCTIONAL TECHNOLOGIST shunt tubing was again confirmed to be in the right lateral abdomen. The abdomen was irrigated and suctioned clean. After receiving a correct sponge needle and instrument count attention was turned to closing the abdomen. The fascia and peritoneum were approximated with a single layer of interrupted sutures of antibiotic containing #1 Vicryl. Subcutaneous space was obliterated with interrupted sutures of 2-0 chromic. The skin was secured with stacy. The operative site was washed and dried. A dressing of mupirocin ointment, folded 4 x 4's and Medipore tape was applied. The operative procedure was terminated at this point. The patient tolerated the anesthetic and procedure well without complication. There was no measurable blood loss. No specimens were submitted. The patient was transferred to the recovery room extubated, awake, and in stable condition. Discharge Disposition: Home self care Disposition: Home self-care Condition: Stable Discharge Activity: Activity as tolerated Discharge Diet: General/regular food Referrals: Holland Nagy MD [Primary Care Provider] - Problem Oriented Discharge Instructions to Patient/Family: Small Bowel Obstruction, [id number] Additional Patient Instructions (free text): TCM appointment at discharge, call Beba at x [phone] when discharged. Fax discharge information to [facility] in [place] to [phone] [facility] , they will setup Home Health. Follow-up with PCP at [facility] within 1-[address] Crockett 07/25 at 10:30 Follow-up with Dr. Gee next week 07/19 at 1:00. Prescriptions (Any new or edited meds): Polyethylene Glycol 3350 [Miralax] 17 gm PO DAILY #30 powd.pack Complete Home Medications List: Complete Home Medication List: Benzocaine/Menthol [Cepacol Sore Throat] 1 each MM PRN 06/27/17 Divalproex Sodium [Depakote] 250 mg PO DAILY 06/27/17 HYDROcodone/ACETAMINOPHEN [Hydrocodon-Acetaminophen 5-325] 2 each PO Q6H PRN Haloperidol 20 mg PO BID 06/27/17 QUEtiapine FUMARATE [Seroquel] 400 mg PO DAILY 06/27/17 QUEtiapine FUMARATE [Seroquel] 500 mg PO HS 06/27/17 Oxybutynin Chloride [Ditropan] 10 mg PO HS 06/28/17 oxyCODONE HCL/ACETAMINOPHEN [Percocet 5 MG/325 MG] 2 tab PO Q4H PRN #60 tablet 06/28/17 Polyethylene Glycol 3350 [Miralax] 17 gm PO DAILY #30 powd.pack 07/12/17
[2017-07-12] MEDS: ACETAMINOPHEN 325 MG TABLET PO PRN (09:24)
[2017-07-12] MEDS ORDERED: WARFARIN SODIUM 5 MG TABLET PO SCH (17:00)
== END 2017-07-12 11:00 | disposition home health service (06) | DRG 335 ==
LOC: ER 11:02 → MS 12:54
PROVIDERS: ADMIT Family Medicine; ATTEND Family Medicine
PROC: 0DN80ZZ Release Small Intestine, Open Approach (ICD-10-PCS; principal; 2017-07-04 12:30)
DX: K56.5 Intestinal adhesions [bands] with obstruction (postinfection) (principal); J96.01 Acute respiratory failure with hypoxia; K91.3 Postprocedural intestinal obstruction; E87.6 Hypokalemia; K21.9 Gastro-esophageal reflux disease without esophagitis; S06.9X9S Unspecified intracranial injury with loss of consciousness of unspecified duration, sequela; S52.001D Unspecified fracture of upper end of right ulna, subsequent encounter for closed fracture with routine healing; F17.210 Nicotine dependence, cigarettes, uncomplicated; G40.909 Epilepsy, unspecified, not intractable, without status epilepticus
CPT/HCPCS: 36415; 44005; 71010; 71020; 74000; 74020; 80048; 80053; 80076; 82150; 82465; 83690; 83735; 84100; 84478; 84484; 85007; 85025; 85027; 87040; 93005; 96374; 96375; 99284; J2405

== ENCOUNTER 2019-01-19 12:54 | Inpatient (IN) ==
[2019-01-19] MEDS ORDERED: NORMAL SALINE 1,000 ML IV ONE (13:17)
[2019-01-19] MEDS ORDERED: PROCHLORPERAZINE EDISYLATE 5 MG/ML VIAL IV ONE (13:17)
[2019-01-19 13:33] LABS: Hematocrit 47.4 % (42.0-52.0); Hemoglobin 16.2 gm/dL (13.5-18.0); Mean Corpuscular Hemoglobin 32.1 pg (27-31); Mean Corpuscular Hgb Conc 34.2 g/dl (32-36); Mean Platelet Volume 11.2 fl (8-11.3); Platelet Count 223 K/mm3 (150-450); Red Blood Count 5.04 M/mm3 (4.7-6.0); Red Cell Distribution Width 13.2 % (11.5-14.0); White Blood Count 11.3 K/mm3 (4.0-10.5)
[2019-01-19 13:42] LABS: Total Cells Counted 100
[2019-01-19 13:46] LABS: Albumin * 3.1 gm/dl (3.4-5.0); Anion Gap 15.4 mmol/L (6.8-13.8); BUN/Creatinine Ratio 15.4 (9.0-21.6); Bilirubin, Total 0.6 mg/dL (0.0-1.1); Ca. Corrected For Albumin 9.4 mg/dL (8.4-10.2); Carbon Dioxide 26.4 mmol/L (24-32.6); Potassium 3.8 mmol/L (3.4-4.6); Total Protein 7.7 gm/dL (6.2-8.2)
[2019-01-19 13:53] LABS: Atypical (Reactive) Lymph 19 % (0-2); Lymphocyte 11 % (20-51); Monocyte 15 % (0-9); Neutrophil 55 % (42-75); Neutrophil # 6.2 K/mm3 (1.3-6.0); Platelet Estimate Normal (NORMAL); RBC Morphology Normal (NORMAL)
[2019-01-19] MEDS ORDERED: DIATRIZOATE MEGLUMINE, SODIUM 30 ML BTL PO ONE (14:26)
--- NOTE | 2019-01-19 15:18 | ERNOTE ---
<Gabriella Tejeda - Last Filed: 01/19/19 17:24> Abdominal HPI - General Chief Complaint: Abdominal Pain Time Seen by Provider: 01/19/19 13:08 Source: patient, family - Immun/Allergies/Home Medications Immunizatons: IMMUNIZATION HX Immunizations Up to Date Yes History of Influenza Vaccine Yes Hx Pneumococcal Vaccination No Allergies/Adverse Reactions: Allergies No Known Allergies Allergy (Verified 01/19/19 13:09) Home Medications: HOME MEDICATIONS Divalproex Sodium [Depakote] 250 mg PO DAILY 06/27/17 [Last Taken 06/29/17] Haloperidol 20 mg PO BID 06/27/17 [Last Taken 06/29/17] QUEtiapine FUMARATE [Seroquel] 400 mg PO DAILY 06/27/17 [Last Taken 06/29/17] QUEtiapine FUMARATE [Seroquel] 500 mg PO HS 06/27/17 [Last Taken 06/29/17] Polyethylene Glycol 3350 [Miralax] 17 gm PO DAILY #30 powd.pack 07/12/17 [Last Taken Unknown] - History of Present Illness Narrative: Last BM was 2 days ago and was large. Family does not believe he has passed gas today, patient states he has. He ate some almonds today. He is eating much less than normal for him. Has had emesis. Feels better now than he did this am. Timing: other - improved from this am Review of Systems - Narrative Narrative: unobtainable due to TBI Medical History (Last Reviewed 01/19/19 @ 15:13 by James Ferreira MD) Small bowel obstruction (Resolved) Onset Date: 2016 TBI (traumatic brain injury) (Chronic) Onset Date: Unknown GERD (gastroesophageal reflux disease) (Chronic) Onset Date: Unknown Seizures (Chronic) Onset Date: Unknown UTI (urinary tract infection) (Acute) Onset Date: Unknown Partial small bowel obstruction (Acute) Onset Date: Unknown Fracture of proximal ulna, closed (Acute) Onset Date: Unknown silk presser shunt (Acute) Onset Date: Unknown Abdominal adhesions (Chronic) Onset Date: Unknown Seizure disorder (Chronic) Onset Date: Unknown Acute respiratory failure (Acute) Onset Date: Unknown Brain neoplasm malignant Onset Date: 1990 Elbow injury Onset Date: Unknown olecranon fracture, right, closed, initial encounter Onset Date: 2016 Surgical History: Surgical History (Last Reviewed 01/19/19 @ 15:13 by James Ferreira MD) Elbow fracture Onset Date: 2016 ORIF rt olecranon History of brain surgery Onset Date: 1990 Malignant tumor-[facility] ORIF Onset Date: 2016 Breder-right olecranon fx excision of skin lesion Onset Date: 2012 Tinguely-left lower leg-Neurilemmoma exploratory laparotomy with lysis of adhesions Onset Date: 2016 B[place] shunt placement Onset Date: 1990 2 brain shunts Family History: Family History (Last Reviewed 01/19/19 @ 15:13 by James Ferreira MD) Mother Alive and well Father Alive and well Grandmother Stomach cancer Grandfather , leukemia age 41 Leukemia Aunt Ovarian cancer, Onset Age: 41 Social History: Preferred Language Yi Smoking Status Former smoker Abuse History No History of abuse Psych History No pertinent hx,Currently on Meds Alcohol Use none Drug Use none (Last Updated 11/03/18 @ 12:20 by Isa Liang [facility]) No Social History Section defined Physical Exam - Physical Exam General Appearance: Present: alert, no apparent distress Head Exam: Present: normal inspection, no evidence of injury Eye Exam: Normal inspection: bilateral Ears, Nose, Throat: Present: normal ENT inspection Neck: Present: normal inspection Respiratory: Present: no respiratory distress, normal breath sounds, no accessory muscle use, lungs clear Cardiovascular/Chest: Present: regular rate, rhythm Gastrointestinal/Abdominal: Present: nontender, distended. Absent: guarding, rebound Extremity Exam: Present: normal inspection Neurological Exam: Present: alert, other - flat affect Progress - Results and Orders Patient's Lab Results:: I have reviewed the patient's lab results. - Vital Signs Patient's Vital Signs:: I have reviewed the patient's vital signs. Vital Signs: Vital Signs 01/19/19 12:54 01/19/19 13:54 01/19/19 14:38 Temperature 36.4 C 36.7 C Pulse Rate 110 H 106 H 106 H Respiratory Rate 16 20 20 Blood Pressure 153/91 H 150/86 H 141/85 H O2 Sat by Pulse Oximetry 97 92 L 92 L 01/19/19 15:08 01/19/19 15:53 01/19/19 16:09 Temperature Pulse Rate 97 Respiratory Rate 20 Blood Pressure 149/86 H 115/78 156/89 H O2 Sat by Pulse Oximetry 93 - X-Ray X-Ray #1 X-Ray: abdomen - Progress/Reassessment Chief Complaint: Abdominal Pain Plan - Plan Plan: Will await lactic acid. Pt currently feels better than he did this am. His VS are reassuring. Will place NG tube and give dose of zosyn. Will monitor closely. Do not want to berger into surgery, as this will cause more scar tissue and patient does not have an acute exam. His labs are reassuring. Exam does not show rigidity, rebound or guarding. Plan discussed with family. Family mentions that patient is a poor historian. Departure Clinical Impression: SBO (small bowel obstruction) - Departure Disposition: Still a patient Condition: Fair Referrals: Holland Nagy MD [Primary Care Provider] - <James Ferreira - Last Filed: 01/19/19 17:54> Abdominal HPI - Narrative Date of Service: 01/19/19 - General Source: patient, family Exam Limitations: other - Traumatic Brain Injury - Immun/Allergies/Home Medications Immunizatons: IMMUNIZATION HX Immunizations Up to Date Yes History of Influenza Vaccine Yes Hx Pneumococcal Vaccination No - History of Present Illness Narrative: patient presents to the ED for a possible bowel obstruction. He cannot tell me exactly when this started but he has candace having increased abdominal distention and now vomiting. No blood in vomit. Cannot tell me exactly when the vomiting started. he denies abdominal pain. Nothing clearly seems to make this better or worse. This sis a compromised history given his TBI. Family states this is exactly like when he had a bowel obstruction. Timing: constant Quality: other - no pain right now by his report Activities at Onset: none Modifying Factors - (Improves): Present: other - nothing Modifying Factors - (Worsens): Present: other - nothing Associated Symptoms: Present: nausea, vomiting. Absent: back pain, diarrhea- gross blood, fever/chills, shortness of breath Prior Abdominal Problems: Present: similar symptoms Prior Treatment: Absent: recently seen Review of Systems - Narrative Narrative: unobtainable otherwise d/t TBI - Review of Systems Constitutional: Absent: fever Respiratory: Absent: shortness of breath Cardiology: Absent: chest pain Gastrointestinal/Abdominal: Absent: abdominal pain Medical History (Last Reviewed 01/19/19 @ 15:13 by James Ferreira MD) Small bowel obstruction (Resolved) Onset Date: 2016 TBI (traumatic brain injury) (Chronic) Onset Date: Unknown GERD (gastroesophageal reflux disease) (Chronic) Onset Date: Unknown Seizures (Chronic) Onset Date: Unknown UTI (urinary tract infection) (Acute) Onset Date: Unknown Partial small bowel obstruction (Acute) Onset Date: Unknown Fracture of proximal ulna, closed (Acute) Onset Date: Unknown silk presser shunt (Acute) Onset Date: Unknown Abdominal adhesions (Chronic) Onset Date: Unknown Seizure disorder (Chronic) Onset Date: Unknown Acute respiratory failure (Acute) Onset Date: Unknown Brain neoplasm malignant Onset Date: 1990 Elbow injury Onset Date: Unknown olecranon fracture, right, closed, initial encounter Onset Date: 2016 Surgical History: Surgical History (Last Reviewed 01/19/19 @ 15:13 by James Ferreira MD) Elbow fracture Onset Date: 2016 ORIF rt olecranon History of brain surgery Onset Date: 1990 Malignant tumor-[place] ORIF Onset Date: 2016 Breder-right olecranon fx excision of skin lesion Onset Date: 2012 Tinguely-left lower leg-Neurilemmoma exploratory laparotomy with lysis of adhesions Onset Date: 2016 Bagan shunt placement Onset Date: 1990 2 brain shunts Family History: Family History (Last Reviewed 01/19/19 @ 15:13 by James Ferreira MD) Mother Alive and well Father Alive and well Grandmother Stomach cancer Grandfather , leukemia age 41 Leukemia Aunt Ovarian cancer, Onset Age: 41 Social History: Preferred Language Yi Smoking Status Former smoker Abuse History No History of abuse Psych History No pertinent hx,Currently on Meds Alcohol Use none Drug Use none (Last Updated 11/03/18 @ 12:20 by Isa Liang [employer]) No Social History Section defined Physical Exam - Physical Exam General Appearance: Present: alert, no apparent distress Head Exam: Present: normal inspection, no evidence of injury Eye Exam: Normal inspection: bilateral, PERRL: bilateral Ears, Nose, Throat: Present: normal ENT inspection Neck: Present: normal inspection Respiratory: Present: no respiratory distress, normal breath sounds, no accessory muscle use, lungs clear Cardiovascular/Chest: Present: regular rate, rhythm Gastrointestinal/Abdominal: Present: nontender, abnormal bowel sounds, distended. Absent: guarding, rebound Back Exam: Absent: CVA tenderness (R), CVA tenderness (L) Extremity Exam: Present: normal inspection Neurological Exam: Present: alert, other - no acute unilateral focal motor or sensory deifcits Skin Exam: Present: normal color, warm/dry Progress - Results and Orders Patient's Lab Results:: I have reviewed the patient's lab results. - Vital Signs Patient's Vital Signs:: I have reviewed the patient's vital signs. Vital Signs: Vital Signs 01/19/19 12:54 01/19/19 13:54 Temperature 36.4 C Pulse Rate 110 H 106 H Respiratory Rate 16 20 Blood Pressure 153/91 H 150/86 H O2 Sat by Pulse Oximetry 97 92 L - X-Ray X-Ray #1 X-Ray: abdomen Interpretation: Interp. by me X-ray Comments: I reviewed official radiology report - CT/Ultrasound CT/Ultrasound Narrative: I reviewed official radiology report for CT abd/pelvis. - Progress/Reassessment Progress Note-Subjective: 01/19/19 15:[address] Tejeda about his exan, history and x-ray findings. Dr Arnold recommends CT adn to call her back. Patient and family notifed and CT ordered. 01/19/19 16:[address] Tejeda, she requests NG and IV Zosyn which has been ordered. She will see the patient in the ED. Pt and family notified. 01/19/19 17:54 Dr Tejeda saw the patient in the ED and admitted the patient to the hospital.
[2019-01-19] MEDS ORDERED: PIPERACILLIN SODIUM/TAZOBACTAM 3.375 GM in DEXTROSE 5 % IN WATER 100 ML IV ONE ×2 (16:51)
--- NOTE | 2019-01-19 17:05 | HP ---
History of Present Illness: Pt developed abd pain today. His last BM was two days ago. History is provided by family members as well, due to patient history of TBI. He had vomiting today. He is eating much less, only had almonds today. Feels similar to previous SBO last year, when Dr. Gee did an exploratory laparotomy. Currently feels better now than he did this am. Had flatus yesterday. Never had a colonoscopy. 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 ORIF Onset Date: 2016 Breder-right olecranon fx excision of skin lesion Onset Date: 2012 Tinguely-left lower leg-Neurilemmoma exploratory laparotomy with lysis of adhesions Onset Date: 2016 Bagan shunt placement Onset Date: 1990 2 brain shunts Family History: Family History (Last Updated 01/19/19 @ 20:32 by Mady Rodriguez RN) Mother Alive and well Father Alive and well Throat cancer Grandmother Stomach cancer Grandfather , leukemia age 41 Leukemia Aunt Ovarian cancer, Onset Age: 41 Social History: Preferred Language Belarusian Smoking Status Former smoker Abuse History No History of abuse Psych History No pertinent hx,Currently on Meds Alcohol Use none Drug Use none (Last Updated 11/03/18 @ 12:20 by DELFINA Blakely) No Social History Section defined Review Of Systems (GEN) - Review of Systems Additional Comments: Unable to obtain due to TBI Immunizations: IMMUNIZATION HX Immunizations Up to Date Yes History of Influenza Vaccine Yes Hx Pneumococcal Vaccination No Allergies/Adverse Reactions: Allergies Allergy/AdvReac Type Severity Reaction Status Date / Time No Known Allergies Allergy Verified 01/19/19 20:33 Home Medications: HOME MEDICATIONS Divalproex Sodium [Depakote] 250 mg PO QPM 06/27/17 [Last Taken 06/29/17] Haloperidol 20 mg PO BID 06/27/17 [Last Taken 06/29/17] QUEtiapine FUMARATE [Seroquel] 400 mg PO DAILY 06/27/17 [Last Taken 06/29/17] QUEtiapine FUMARATE [Seroquel] 500 mg PO HS 06/27/17 [Last Taken 06/29/17] Polyethylene Glycol 3350 [Miralax] 17 gm PO DAILY #30 powd.pack 07/12/17 [Last Taken Unknown] Exam - Exam Vital Signs: Vital Signs - Last Taken Temp 36.4 C 01/19/19 12:54 Pulse 106 H 01/19/19 13:54 Resp 20 01/19/19 13:54 BP 150/86 H 01/19/19 13:54 Pulse Ox 92 L 01/19/19 13:54 Constitutional: Present: Alert, Cooperative ENT Exam: Present: hearing grossly normal Eye Exam: bilateral eye: normal inspection Neck: Present: supple Abdomen: Present: nontender, obese, firm. Absent: nondistended, tender, guarding, rigidity Extremity: Present: normal range of motion Appearance: Present: appropriate appearance Eye contact: Present: cooperative, other - flat affect Thoughts: Present: normal thought pattern Diagnostic Studies: Abnormal Lab Results 01/19/19 01/19/19 Range/Units 13:30 13:30 WBC 11.3 H (4.0-10.5) K/mm3 MCH 32.1 H (27-31) pg Lymphocytes % (Manual) 11 L (20-51) % Monocytes % (Manual) 15 H (0-9) % Neutrophils # (Manual) 6.2 H (1.3-6.0) K/mm3 Lymphocytes # (Manual) 1.2 L (1.5-3.5) k/mm3 Monocytes # (Manual) 1.7 H (0.0-1.0) k/mm3 Atypic/Reactive Lymphs 19 H (0-2) % Anion Gap 15.4 H (6.8-13.8) mmol/L Random Glucose 120 H (70-110) mg/dL ALT 16 L (19-67) U/L Albumin 3.1 L (3.4-5.0) gm/dl Laboratory Results WBC 11.3 K/mm3 (4.0-10.5) H 01/19/19 13:30 RBC 5.04 M/mm3 (4.7-6.0) 01/19/19 13:30 Hgb 16.2 gm/dL (13.5-18.0) 01/19/19 13:30 Hct 47.4 % (42.0-52.0) 01/19/19 13:30 MCV 94.0 fl (78-100) 01/19/19 13:30 MCH 32.1 pg (27-31) H 01/19/19 13:30 MCHC 34.2 g/dl (32-36) 01/19/19 13:30 RDW 13.2 % (11.5-14.0) 01/19/19 13:30 Plt Count 223 K/mm3 (150-450) 01/19/19 13:30 MPV 11.2 fl (8-11.3) 01/19/19 13:30 Neutrophils % (Manual) 55 % (42-75) 01/19/19 13:30 Lymphocytes % (Manual) 11 % (20-51) L 01/19/19 13:30 Monocytes % (Manual) 15 % (0-9) H 01/19/19 13:30 Neutrophils # (Manual) 6.2 K/mm3 (1.3-6.0) H 01/19/19 13:30 Lymphocytes # (Manual) 1.2 k/mm3 (1.5-3.5) L 01/19/19 13:30 Monocytes # (Manual) 1.7 k/mm3 (0.0-1.0) H 01/19/19 13:30 Atypic/Reactive Lymphs 19 % (0-2) H 01/19/19 13:30 Platelet Estimate Normal (NORMAL) 01/19/19 13:30 RBC Morphology Normal (NORMAL) 01/19/19 13:30 Sodium 137 mmol/L (132-142) 01/19/19 13:30 Plasma Sodium 137 mmol/L (130-142) 01/19/19 13:30 Potassium 3.8 mmol/L (3.4-4.6) 01/19/19 13:30 Chloride 99 mmol/L (97-106) 01/19/19 13:30 Carbon Dioxide 26.4 mmol/L (24-32.6) 01/19/19 13:30 Anion Gap 15.4 mmol/L (6.8-13.8) H 01/19/19 13:30 BUN 19 mg/dL (6-23) 01/19/19 13:30 Creatinine 1.23 mg/dL (0.4-1.4) 01/19/19 13:30 Est GFR (Non-Af Amer) 67 mL/min (60-130) D 01/19/19 13:30 BUN/Creatinine Ratio 15.4 (9.0-21.6) 01/19/19 13:30 Random Glucose 120 mg/dL (70-110) H 01/19/19 13:30 Calcium 9.0 mg/dL (7.9-10.9) 01/19/19 13:30 Calcium Adj for Albumin 9.4 mg/dL (8.4-10.2) 01/19/19 13:30 Total Bilirubin 0.6 mg/dL (0.0-1.1) 01/19/19 13:30 AST 15 U/L (0-48) 01/19/19 13:30 ALT 16 U/L (19-67) L 01/19/19 13:30 Alkaline Phosphatase 62 U/L (50-170) 01/19/19 13:30 Total Protein 7.7 gm/dL (6.2-8.2) 01/19/19 13:30 Albumin 3.1 gm/dl (3.4-5.0) L 01/19/19 13:30 Lipase 93 U/L (73-393) 01/19/19 13:30 Assessment/Plan - Narrative Narrative: Will place NG tube monitor closely at this time VSS, labs reassuring normal LA will monitor closely, imaging shows possible pneumatosis, but pt has reassuring VS, exam, and labs - Assessment/Plan (1) SBO (small bowel obstruction) Problem: Acute (2) TBI (traumatic brain injury) Problem: Chronic Qualifiers: Encounter type: sequela Loss of consciousness presence/duration: with LOC of unspecified duration Qualified Code(s): S06.9X9S - Unspecified intracranial injury with loss of consciousness of unspecified duration, sequela (3) GERD (gastroesophageal reflux disease) Problem: Chronic Qualifiers: Esophagitis presence: esophagitis presence not specified Qualified Code(s): K21.9 - Gastro-esophageal reflux disease without esophagitis
[2019-01-19 17:08] LABS: Urine Bilirubin Negative (NEGATIVE); Urine Blood Negative /ul (NEGATIVE); Urine Ketone 5 mg/dL (NEGATIVE); Urine Nitrite Negative (NEGATIVE); Urine Protein 15 mg/dL (NEGATIVE); Urine Urobilinogen Normal (NORMAL); Urine pH 6.5 pH (5.0-7.0)
[2019-01-19 17:24] LABS: Urine Color Yellow
[2019-01-19 17:25] LABS: Urine Appearance Slightly Cloudy (CLEAR); Urine Bacteria 1+; Urine Hyaline Cast 0-5 /LPF; Urine Mucus Moderate - 2+; Urine RBC 0-5 /hpf (0-5); Urine WBC 0-5 /hpf (0-5)
[2019-01-19] MEDS: POTASSIUM CHLORIDE 20 MEQ in DEXTROSE 5%-0.5 NORMAL SALINE 990 ML IV SCH (19:54)
[2019-01-19] MEDS: HALOPERIDOL 5 MG TABLET PO SCH (23:49)
[2019-01-19] MEDS: QUEtiapine FUMARATE 100 MG TABLET PO SCH (23:52)
[2019-01-20] MEDS: PHENOL 180 SPRAY BTL MM PRN (02:58)
[2019-01-20] MEDS: POTASSIUM CHLORIDE 20 MEQ in DEXTROSE 5%-0.5 NORMAL SALINE 990 ML IV SCH ×4 (03:57→20:42)
[2019-01-20 06:26] LABS: Hematocrit 42.5 % (42.0-52.0); Hemoglobin 14.6 gm/dL (13.5-18.0); Mean Cell Volume 93.6 fl (78-100); Mean Corpuscular Hemoglobin 32.2 pg (27-31); Mean Corpuscular Hgb Conc 34.4 g/dl (32-36); Mean Platelet Volume 10.8 fl (8-11.3); Neutrophil # 9.8 K/mm3 (1.3-6.0); Neutrophil % 62.9 % (42-75.0); Platelet Count 185 K/mm3 (150-450); Red Blood Count 4.54 M/mm3 (4.7-6.0); Red Cell Distribution Width 13.2 % (11.5-14.0); White Blood Count 15.7 K/mm3 (4.0-10.5)
[2019-01-20 06:44] LABS: Total Cells Counted 100
[2019-01-20 06:50] LABS: Albumin * 2.8 gm/dl (3.4-5.0); Anion Gap 11.1 mmol/L (6.8-13.8); BUN/Creatinine Ratio 16.7 (9.0-21.6); Bilirubin, Total 0.7 mg/dL (0.0-1.1); Ca. Corrected For Albumin 9.3 mg/dL (8.4-10.2); Calcium * 8.7 mg/dL (7.9-10.9); Carbon Dioxide 32.3 mmol/L (24-32.6); Potassium 3.4 mmol/L (3.4-4.6); Total Protein 6.9 gm/dL (6.2-8.2)
[2019-01-20 06:58] LABS: Atypical (Reactive) Lymph 7 % (0-2); Band 3 % (0-2.0); Lymphocyte 17 % (20-51); Monocyte 15 % (0-9); Neutrophil 58 % (42-75); Neutrophil # 9.1 K/mm3 (1.3-6.0); Platelet Estimate Normal (NORMAL); RBC Morphology Normal (NORMAL)
--- NOTE | 2019-01-20 08:12 | PN ---
Dictated Progress Note - Date and Time Seen: Date: 01/20/19 Time: 08:09 - Progress Note Narrative: Feels the same as yesterday. passed gas this am. Family at bedside and witnessed flatus. did not sleep well last night Vital Signs - Last Taken Temp 37.2 C 01/20/19 07:00 Pulse 86 01/20/19 07:00 Resp 17 01/20/19 07:00 BP 135/76 01/20/19 07:00 Pulse Ox 91 L 01/20/19 07:00 Abnormal/Pending Laboratory Last 24 HRS 01/20/19 01/20/19 01/19/19 06:20 06:20 17:03 WBC 15.7 H D RBC 4.54 L MCH 32.2 H Immature Gran # (Auto) 0.06 H Band Neuts % (Manual) 3 H Lymphocytes % 19.3 L Lymphocytes % (Manual) 17 L Monocytes % 17.2 H Monocytes % (Manual) 15 H Neutrophils # 9.8 H Neutrophils # (Manual) 9.1 H Lymphocytes # (Manual) Monocytes # 2.7 H Monocytes # (Manual) 2.4 H Atypic/Reactive Lymphs 7 H Anion Gap Random Glucose 124 H ALT 13 L Albumin 2.8 L Urine Protein 15 H Urine Bacteria 1+ H Hyaline Casts 0-5 H Urine Mucus Moderate - 2+ H 01/19/19 01/19/19 13:30 13:30 WBC 11.3 H RBC MCH 32.1 H Immature Gran # (Auto) Band Neuts % (Manual) Lymphocytes % Lymphocytes % (Manual) 11 L Monocytes % Monocytes % (Manual) 15 H Neutrophils # Neutrophils # (Manual) 6.2 H Lymphocytes # (Manual) 1.2 L Monocytes # Monocytes # (Manual) 1.7 H Atypic/Reactive Lymphs 19 H Anion Gap 15.4 H Random Glucose 120 H ALT 16 L Albumin 3.1 L Urine Protein Urine Bacteria Hyaline Casts Urine Mucus NAD abd distended, no rebound or guarding, no wincing with palpation RRR CTAB Imp SBO- with new flatus increased leukocytosis decreased LA TBI hx Plan: LA is decreased and has been normal. WBC is increased. Pt had flatus this am. SBO seems to be resolving. Still distended without acute exam. Will continue to monitor. Add protonix for GI proph. SCD on.
[2019-01-20] MEDS: DIVALPROEX SODIUM 250 MG TABLET.DR PO SCH (08:41)
[2019-01-20] MEDS: QUEtiapine FUMARATE 100 MG TABLET PO SCH ×2 (08:41→21:21)
[2019-01-20] MEDS: HALOPERIDOL 5 MG TABLET PO SCH ×2 (08:41→21:21)
[2019-01-20] MEDS: PANTOPRAZOLE SODIUM 40 MG in NORMAL SALINE 100 ML IV SCH (08:41)
[2019-01-21] MEDS: POTASSIUM CHLORIDE 20 MEQ in DEXTROSE 5%-0.5 NORMAL SALINE 990 ML IV SCH ×3 (04:54→21:28)
[2019-01-21 06:30] LABS: Hematocrit 39.3 % (42.0-52.0); Hemoglobin 13.4 gm/dL (13.5-18.0); Mean Cell Volume 94.2 fl (78-100); Mean Corpuscular Hemoglobin 32.1 pg (27-31); Mean Corpuscular Hgb Conc 34.1 g/dl (32-36); Mean Platelet Volume 10.8 fl (8-11.3); Neutrophil # 5.9 K/mm3 (1.3-6.0); Neutrophil % 55.5 % (42-75.0); Platelet Count 160 K/mm3 (150-450); Red Blood Count 4.17 M/mm3 (4.7-6.0); Red Cell Distribution Width 13.1 % (11.5-14.0); White Blood Count 10.6 K/mm3 (4.0-10.5)
[2019-01-21 06:38] LABS: Total Cells Counted 100
[2019-01-21 06:46] LABS: Anion Gap 11.7 mmol/L (6.8-13.8); BUN/Creatinine Ratio 11.4 (9.0-21.6); Carbon Dioxide 25.2 mmol/L (24-32.6); Magnesium 1.6 mg/dL (1.2-2.8); Potassium 3.9 mmol/L (3.4-4.6)
[2019-01-21 07:16] LABS: Atypical (Reactive) Lymph 5 % (0-2); Eosinophil 1 % (0-3); Lymphocyte 19 % (20-51); Monocyte 6 % (0-9); Neutrophil 69 % (42-75); Neutrophil # 7.3 K/mm3 (1.3-6.0); Platelet Estimate Normal (NORMAL); RBC Morphology Normal (NORMAL)
[2019-01-21] MEDS: PANTOPRAZOLE SODIUM 40 MG in NORMAL SALINE 100 ML IV SCH (07:21)
[2019-01-21] MEDS: QUEtiapine FUMARATE 100 MG TABLET PO SCH ×2 (08:34→21:21)
[2019-01-21] MEDS: DIVALPROEX SODIUM 250 MG TABLET.DR PO SCH (08:34)
[2019-01-21] MEDS: HALOPERIDOL 5 MG TABLET PO SCH ×2 (08:34→21:21)
--- NOTE | 2019-01-21 10:24 | PN ---
Dictated Progress Note - Date and Time Seen: Date: 01/21/19 Time: 10:22 - Progress Note Narrative: Feeling better today, states he passed flatus twice last night. Denies pain or nausea Vital Signs - Last Taken Temp 37.1 C 01/21/19 09:06 Pulse 85 01/21/19 09:06 Resp 20 01/21/19 09:06 BP 152/70 H 01/21/19 09:06 Pulse Ox 96 01/21/19 09:06 Abnormal/Pending Laboratory Last 24 HRS 01/21/19 06:15 WBC 10.6 H D RBC 4.17 L Hgb 13.4 L Hct 39.3 L MCH 32.1 H Immature Gran % (Auto) 0.50 H Immature Gran # (Auto) 0.05 H Lymphocytes % (Manual) 19 L Monocytes % 15.2 H Neutrophils # (Manual) 7.3 H Monocytes # 1.6 H Atypic/Reactive Lymphs 5 H NAD non labored respirations RRR abd much softer than yesterday and less distended Imp: SBO- resolving hx TBI Plan cont NG due to high output AXR in am protonix start lovenox
[2019-01-21] MEDS: ENOXAPARIN SODIUM 40 MG/0.4 ML SYRG SC SCH (10:45)
[2019-01-21] MEDS: PHENOL 180 SPRAY BTL MM PRN (18:48)
[2019-01-22] MEDS: POTASSIUM CHLORIDE 20 MEQ in DEXTROSE 5%-0.5 NORMAL SALINE 990 ML IV SCH ×3 (05:51→22:36)
[2019-01-22] MEDS: PANTOPRAZOLE SODIUM 40 MG in NORMAL SALINE 100 ML IV SCH (08:07)
[2019-01-22] MEDS: QUEtiapine FUMARATE 100 MG TABLET PO SCH ×2 (08:31→20:22)
[2019-01-22] MEDS: DIVALPROEX SODIUM 250 MG TABLET.DR PO SCH (08:31)
[2019-01-22] MEDS: HALOPERIDOL 5 MG TABLET PO SCH ×2 (08:31→20:22)
--- NOTE | 2019-01-22 09:13 | PN ---
Dictated Progress Note - Date and Time Seen: Date: 01/22/19 Time: 09:12 - Progress Note Narrative: Doing well. Denies abd pain. No n/v. NG tube is clamped, he is tolerating water. He had flatus last night Vital Signs - Last Taken Temp 37.0 C 01/22/19 07:41 Pulse 79 01/22/19 07:41 Resp 24 H 01/22/19 07:41 BP 136/75 01/22/19 07:41 Pulse Ox 92 L 01/22/19 07:41 NAD non labored respiration RRR abd soft, non distended, non tender IMP: SBO- resolved hx of traumatic brain injury Plan: clamp NG start clears lovenox/protonix
[2019-01-22] MEDS: ENOXAPARIN SODIUM 40 MG/0.4 ML SYRG SC SCH (09:51)
[2019-01-23] MEDS: POTASSIUM CHLORIDE 20 MEQ in DEXTROSE 5%-0.5 NORMAL SALINE 990 ML IV SCH (06:47)
[2019-01-23] MEDS: PANTOPRAZOLE SODIUM 40 MG in NORMAL SALINE 100 ML IV SCH (08:24)
[2019-01-23] MEDS: QUEtiapine FUMARATE 100 MG TABLET PO SCH (08:30)
[2019-01-23] MEDS: DIVALPROEX SODIUM 250 MG TABLET.DR PO SCH (08:30)
[2019-01-23] MEDS: HALOPERIDOL 5 MG TABLET PO SCH (08:30)
--- NOTE | 2019-01-23 08:34 | DS ---
(1) SBO (small bowel obstruction) Problem: Resolved (2) TBI (traumatic brain injury) Problem: Chronic Qualifiers: Encounter type: sequela Loss of consciousness presence/duration: with LOC of unspecified duration Qualified Code(s): S06.9X9S - Unspecified intracranial injury with loss of consciousness of unspecified duration, sequela (3) GERD (gastroesophageal reflux disease) Problem: Chronic Qualifiers: Esophagitis presence: esophagitis presence not specified Qualified Code(s): K21.9 - Gastro-esophageal reflux disease without esophagitis Description of Stay: Marino is a very pleasant 48-year-old gentleman who was admitted to the hospital for a small bowel obstruction. He initially came in on Tuesday night through the emergency room. He had a CT scan which show possible pneumatosis. However he was clinically stable. His labs and vital signs were normal. We continued with conservative management. He continued to improve. He has flatus, his abdomen is soft. He denies any abdominal pain. He will have full liquids this morning and a soft diet for lunch. Procedures Performed: none Results and Findings: Lab Pending Results 01/19/19 13:30: WBC 11.3 H, RBC 5.04, Hgb 16.2, Hct 47.4, MCV 94.0, MCH 32.1 H, MCHC 34.2, RDW 13.2, Plt Count 223, MPV 11.2, Neutrophils % (Manual) 55, Lymphocytes % (Manual) 11 L, Monocytes % (Manual) 15 H, Neutrophils # (Manual) 6.2 H, Lymphocytes # (Manual) 1.2 L, Monocytes # (Manual) 1.7 H, Atypic/Reactive Lymphs 19 H, Platelet Estimate Normal, RBC Morphology Normal 01/19/19 13:30: Sodium 137, Plasma Sodium 137, Potassium 3.8, Chloride 99, Carbon Dioxide 26.4, Anion Gap 15.4 H, BUN 19, Creatinine 1.23, Est GFR (Non-Af Amer) 67 D, BUN/Creatinine Ratio 15.4, Random Glucose 120 H, Calcium 9.0, Calcium Adj for Albumin 9.4, Total Bilirubin 0.6, AST 15, ALT 16 L, Alkaline Phosphatase 62, Total Protein 7.7, Albumin 3.1 L, Lipase 93 01/19/19 13:30: Lactic Acid, Venous 2.0 01/19/19 17:03: Urine Color Yellow, Urine Appearance Slightly cloudy, Urine pH 6.5, Ur Specific [place] 1.010, Urine Protein 15 H, Urine Glucose (UA) Negative, Urine Ketones 5, Urine Blood Negative, Urine Nitrate Negative, Urine Bilirubin Negative, Prot Sulfosalicylic Acd 1+, Urine Urobilinogen Normal, Ur Leukocyte Esterase Negative, Urine RBC 0-5, Urine WBC 0-5, Ur Epithelial Cells 0-5, Urine Bacteria 1+ H, Hyaline Casts 0-5 H, Urine Mucus Moderate - 2+ H, Urine Culture Comments No culture indicated 01/20/19 06:20: Lactic Acid, Venous 0.9 01/20/19 06:20: WBC 15.7 H D, RBC 4.54 L, Hgb 14.6, Hct 42.5, MCV 93.6, MCH 32.2 H, MCHC 34.4, RDW 13.2, Plt Count 185, MPV 10.8, Immature Gran % (Auto) 0.40, Immature Gran # (Auto) 0.06 H, Neutrophils % 62.9, Neutrophils % (Manual) 58, Band Neuts % (Manual) 3 H, Lymphocytes % 19.3 L, Lymphocytes % (Manual) 17 L, Monocytes % 17.2 H, Monocytes % (Manual) 15 H, Eosinophils % 0.0, Basophils % 0.2, Nucleated RBC % 0.0, Neutrophils # 9.8 H, Neutrophils # (Manual) 9.1 H, Lymphocytes # 3.03, Lymphocytes # (Manual) 2.7, Monocytes # 2.7 H, Monocytes # (Manual) 2.4 H, Eosinophils # 0.0, Absolute Basophils 0.0, Atypic/Reactive Lymphs 7 H, Platelet Estimate Normal, RBC Morphology Normal 01/20/19 06:20: Sodium 139, Plasma Sodium 139, Potassium 3.4, Chloride 99, Carbon Dioxide 32.3, Anion Gap 11.1, BUN 17, Creatinine 1.02, Est GFR (Non-Af Amer) 83 D, BUN/Creatinine Ratio 16.7, Random Glucose 124 H, Calcium 8.7, Calcium Adj for Albumin 9.3, Total Bilirubin 0.7, AST 12, ALT 13 L, Alkaline Phosphatase 56, Total Protein 6.9, Albumin 2.8 L 01/21/19 06:15: WBC 10.6 H D, RBC 4.17 L, Hgb 13.4 L, Hct 39.3 L, MCV 94.2, MCH 32.1 H, MCHC 34.1, RDW 13.1, Plt Count 160, MPV 10.8, Immature Gran % (Auto) 0.50 H, Immature Gran # (Auto) 0.05 H, Neutrophils % 55.5, Neutrophils % (Manual) 69, Lymphocytes % 27.8, Lymphocytes % (Manual) 19 L, Monocytes % 15.2 H, Monocytes % (Manual) 6, Eosinophils % 0.7, Eosinophils % (Manual) 1, Basophils % 0.3, Nucleated RBC % 0.0, Neutrophils # 5.9, Neutrophils # (Manual) 7.3 H, Lymphocytes # 2.94, Lymphocytes # (Manual) 2.0, Monocytes # 1.6 H, Monocytes # (Manual) 0.6, Eosinophils # 0.1, Eosinophils # (Manual) 0.1, Absolute Basophils 0.0, Atypic/Reactive Lymphs 5 H, Platelet Estimate Normal, RBC Morphology Normal 01/21/19 06:15: Sodium 136, Plasma Sodium 136, Potassium 3.9, Chloride 103, Carbon Dioxide 25.2, Anion Gap 11.7, BUN 8 D, Creatinine 0.70, Est GFR (Non-Af Amer) 128 D, BUN/Creatinine Ratio 11.4, Random Glucose 96, Calcium 8.0, Magnesium 1.6 Discharge Location: Home Disposition: Home self-care Condition: Good Face to Face Encounter completed per [facility] Guidelines: No Discharge Activity: Activity as tolerated Discharge Diet: [facility] soft Referrals: Holland Nagy MD [Primary Care Provider] - Complete Home Medications List: Complete Home Medication List: Divalproex Sodium [Depakote] 250 mg PO QPM 06/27/17 Haloperidol 20 mg PO BID 06/27/17 QUEtiapine FUMARATE [Seroquel] 400 mg PO DAILY 06/27/17 QUEtiapine FUMARATE [Seroquel] 500 mg PO HS 06/27/17 Polyethylene Glycol 3350 [Miralax] 17 gm PO DAILY #30 powd.pack 07/12/17 Divalproex Sodium [Depakote] 250 mg PO DAILY tablet. 01/23/19 Haloperidol [Haldol] 20 mg PO BID tablet 01/23/19 QUEtiapine FUMARATE [Seroquel] 400 mg PO DAILY tablet 01/23/19 QUEtiapine FUMARATE [Seroquel] 500 mg PO HS tablet 01/23/19
[2019-01-23] MEDS: ENOXAPARIN SODIUM 40 MG/0.4 ML SYRG SC SCH (11:28)
[2019-01-23 12:50] VITALS: BP 152/87
[2019-01-23] MEDS ORDERED: QUEtiapine FUMARATE 100 MG TABLET PO SCH (21:00)
[2019-01-23] MEDS ORDERED: HALOPERIDOL 5 MG TABLET PO SCH (21:00)
[2019-01-24] MEDS ORDERED: QUEtiapine FUMARATE 100 MG TABLET PO SCH (09:00)
[2019-01-24] MEDS ORDERED: DIVALPROEX SODIUM 250 MG TABLET.DR PO SCH (09:00)
== END 2019-01-23 13:40 | disposition home or self-care (01) | DRG 390 ==
LOC: ER 12:54 → AMB 18:18 → MS 18:46 → INTOOBSV 18:46 → MS 19:42
PROVIDERS: ADMIT Surgery; ATTEND Surgery
CPT/HCPCS: 36415; 71010; 71045; 74019; 74020; 74177; 80048; 80053; 81001; 83605; 83690; 83735; 85007; 85025; 96361; 96365; 96366; 96367; 96375; 99285; Q9967

== ENCOUNTER 2019-11-12 06:39 | Inpatient (IN) ==
[2019-11-12] MEDS ORDERED: ONDANSETRON HCL/PF 2 MG/ML VIAL IV ONE (07:11)
[2019-11-12] MEDS ORDERED: NORMAL SALINE 1,000 ML IV ONE (07:11)
--- NOTE | 2019-11-12 07:11 | ERNOTE ---
Abdominal HPI - Narrative Date of Service: 11/12/19 - General Chief Complaint: Abdominal Pain Time Seen by Provider: 11/12/19 07:02 Source: patient, family Exam Limitations: no limitations - Immun/Allergies/Home Medications Immunizatons: IMMUNIZATION HX Immunizations Up to Date Yes History of Influenza Vaccine No Hx Pneumococcal Vaccination No Allergies/Adverse Reactions: Allergies No Known Allergies Allergy (Verified 11/12/19 12:00) Home Medications: HOME MEDICATIONS Haloperidol [Haldol] 20 mg PO BID tab 01/23/19 [Last Taken Unknown] QUEtiapine FUMARATE [Seroquel] 400 mg PO DAILY tab 01/23/19 [Last Taken Unknown] QUEtiapine FUMARATE [Seroquel] 500 mg PO HS tab 01/23/19 [Last Taken Unknown] divalproex 250 mg tablet,delayed release 1,250 mg PO DAILY tab 02/02/19 [Last Taken Unknown] docusate sodium 100 mg capsule 100 mg PO BID #60 cap 02/02/19 [Last Taken Unknown] lactulose 10 gram/15 mL oral solution See Rx Instructions PO BID #946 ml 07/09/19 [Last Taken Unknown] Oxybutynin Chloride [Ditropan] 2.5 mg PO HS 11/12/19 [Last Taken Unknown] Wheat Dextrin [Benefiber Clear SF (dextrin)] 3 g PO BID PRN 11/12/19 [Last Taken Unknown] - History of Present Illness Narrative: 49-year-old male comes emergency room complaining of distended abdomen and not having a bowel movement in 2days passing gas in the last 24 hours most of the history was taken by the father the patient patient has had some sort of neurological problem in the past x-ray abdomen has had multiple obstructions in the past few years Date (Duration): 11/12/19 Time (Timing): 07:06 Timing: constant Quality: moderate Activities at Onset: none Modifying Factors - (Improves): Present: other Modifying Factors - (Worsens): Present: other Associated Symptoms: Present: chest pain, nausea, vomiting, loss of appetite. Absent: diarrhea-gross blood, diarrhea-mucous, fatigue, heartburn Prior Abdominal Problems: Present: similar symptoms Review of Systems - Review of Systems Constitutional: Present: no symptoms reported EYE: Present: no symptoms reported ENT: Present: no symptoms reported Respiratory: Present: shortness of breath Cardiology: Present: no symptoms reported Gastrointestinal/Abdominal: Present: nausea, vomiting, abdominal pain Genitourinary: Present: no symptoms reported Musculoskeletal: Present: no symptoms reported Skin: Present: no symptoms reported Neurological: Present: no symptoms reported Endocrine: Present: no symptoms reported Psych: Present: no symptoms reported All Other Systems: All systems neg except as marked Medical History (Last Reviewed 11/12/19 @ 07:08 by Chin Horner MD) Small bowel obstruction (Resolved) Onset Date: 2016 TBI (traumatic brain injury) (Chronic) Onset Date: Unknown GERD (gastroesophageal reflux disease) (Chronic) Onset Date: Unknown Seizures (Chronic) Onset Date: Unknown UTI (urinary tract infection) (Acute) Onset Date: Unknown Partial small bowel obstruction (Acute) Onset Date: Unknown Fracture of proximal ulna, closed (Acute) Onset Date: Unknown 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) Onset Date: Unknown Abdominal adhesions (Chronic) Onset Date: Unknown Seizure disorder (Chronic) Onset Date: Unknown Acute respiratory failure (Acute) Onset Date: Unknown Brain neoplasm malignant Onset Date: 1990 Elbow injury Onset Date: Unknown olecranon fracture, right, closed, initial encounter Onset Date: 2016 Surgical History: Surgical History (Last Reviewed 11/12/19 @ 07:08 by Chin Horner MD) Elbow fracture Onset Date: 2016 ORIF rt olecranon History of brain surgery Onset Date: 1990 Malignant tumor-[facility] ORIF Onset Date: 2016 Breder-right olecranon fx excision of skin lesion Onset Date: 2012 Tinguely-left lower leg-Neurilemmoma exploratory laparotomy with lysis of adhesions Onset Date: 2016 Bagan shunt placement Onset Date: 1990 2 brain shunts Family History: Family History (Last Reviewed 11/12/19 @ 12:09 by Holland Nagy MD) Mother Alive and well Father Alive and well Throat cancer Grandmother Stomach cancer Grandfather , leukemia age 41 Leukemia Aunt Ovarian cancer, Onset Age: 41 Social History: (Last Reviewed 11/12/19 @ 12:09 by Holland Nagy MD) Social History: Marital status: Single household members: family current occupational status: disabled Highest education level completed: high school graduate Service: Yes branch: [employer] status: medically disch/retired Tobacco: Smoking Status: Former smoker Alcohol: alcohol intake: former Substance Use: substance use type: does not use Dietary Habits: caffeine: Yes Type: coffee Physical Exam - Physical Exam General Appearance: Present: wd/wn, alert, moderate distress Head Exam: Present: normal inspection Eye Exam: Normal inspection: bilateral, PERRL: bilateral, EOMI: bilateral Ears, Nose, Throat: Present: normal ENT inspection Neck: Present: normal inspection Respiratory: Present: no respiratory distress Cardiovascular/Chest: Present: regular rate, rhythm Peripheral Pulses: N=norm/S=strong/W=weak/B=bound/A=absent: Carotid (R): Normal, Carotid (L): Normal Gastrointestinal/Abdominal: Present: tenderness, abnormal bowel sounds, distended Back Exam: Present: normal inspection Extremity Exam: Present: normal inspection Neurological Exam: Present: alert, oriented Skin Exam: Present: normal color Lymphatic Exam: Present: no adenopathy Progress - Results and Orders Patient's Lab Results:: I have reviewed the patient's lab results. Results and Orders: Laboratory Tests 11/12/19 11/12/19 07:14 07:14 WBC 18.7 H RBC 5.46 Hgb 18.1 H Hct 51.2 MCV 93.8 MCH 33.2 H Plt Count 303 Neutrophils % (Manual) 89 H Lymphocytes % (Manual) 5 L Monocytes % (Manual) 6 Sodium 134 Plasma Sodium 135 Potassium 4.2 Chloride 99 Carbon Dioxide 25.7 Anion Gap 13.5 BUN 11 Creatinine 1.10 Est GFR (Non-Af Amer) 76 D BUN/Creatinine Ratio 10.0 Random Glucose 154 H Calcium 9.8 Calcium Adj for Albumin 9.6 Total Bilirubin 0.4 AST 17 ALT 24 Alkaline Phosphatase 87 Total Protein 9.0 H Albumin 3.8 Amylase 75 Lipase 104 - Vital Signs Patient's Vital Signs:: I have reviewed the patient's vital signs. Vital Signs: Vital Signs 11/12/19 06:47 Temperature 36.5 C Pulse Rate 125 H Respiratory Rate 16 Blood Pressure 179/102 H O2 Sat by Pulse Oximetry 92 L Blood pressure elevated heart rate elevated - EKG EKG #1 EKG read: Interp. by me EKG Comments: Sinus tachycardia heart rate 117 possible old anterior wall UT possible RVH no acute changes when compared to June of 2017 - Progress/Reassessment Chief Complaint: Abdominal Pain Progress:: Unchanged - Transfer of Care Physician Sign Out: Evens,Chin P Brief History: Nausea vomiting no bowel movement last 24 to 48 hours possible small bowel obstruction Receiving Physician: Donna Castro Pending Results: CT/MRI results Expected Disposition: Admit Plan - Plan Plan: Patient was endorsed to Dr. Castro with the presumptive diagnosis of small bowel obstruction and probable admission to general surgery Departure Clinical Impression: SBO (small bowel obstruction) - Departure Disposition: Still a patient Condition: Good
[2019-11-12 07:19] LABS: Hematocrit 51.2 % (42.0-52.0); Hemoglobin 18.1 gm/dL (13.5-18.0); Mean Cell Volume 93.8 fl (78-100); Mean Corpuscular Hemoglobin 33.2 pg (27-31); Mean Corpuscular Hgb Conc 35.4 g/dl (32-36); Mean Platelet Volume 10.7 fl (8-11.3); Platelet Count 303 K/mm3 (150-450); Red Blood Count 5.46 M/mm3 (4.7-6.0); Red Cell Distribution Width 12.9 % (11.5-14.0); White Blood Count 18.7 K/mm3 (4.0-10.5)
[2019-11-12 07:22] LABS: Total Cells Counted 100
[2019-11-12 07:25] LABS: Lymphocyte 5 % (20-51); Monocyte 6 % (0-9); Neutrophil 89 % (42-75); Neutrophil # 16.6 K/mm3 (1.3-6.0); Platelet Estimate Normal (NORMAL); RBC Morphology Normal (NORMAL)
[2019-11-12 07:29] LABS: Albumin * 3.8 gm/dl (3.4-5.0); Anion Gap 13.5 mmol/L (6.8-13.8); Bilirubin, Total 0.4 mg/dL (0.0-1.1); Ca. Corrected For Albumin 9.6 mg/dL (8.4-10.2); Calcium * 9.8 mg/dL (7.9-10.9); Carbon Dioxide 25.7 mmol/L (24-32.6); Potassium 4.2 mmol/L (3.4-4.6)
[2019-11-12] MEDS ORDERED: DIATRIZOATE MEGLUMINE, SODIUM 30 ML BTL ONE (07:57)
[2019-11-12] MEDS ORDERED: DIATRIZOATE MEGLUMINE, SODIUM 30 ML BTL PO ONE (08:00)
--- NOTE | 2019-11-12 08:32 | PN ---
Progess Note - Interim Date: 11/12/19 Time: 08:20 Narrative: 11/12/19 08:26 Patient has had two prior bowel obstructions, last in 12/2018 His father reports that he had a normal BM two days ago, diarrhea this morning, vomited brown liquid early this morning concerning for bowel obstruction. Patient denies any pain currently is tolerating po contrast for CT as Xray showed bowel obstruction. Father denies any history of lung disease, was a 20py smoker until two years ago, patient denies cough or shortness of breath currently O2 sat 89-90% on RA, RR 20, HR patient alert, no acute distress lungs: clear to ascultation, decreased air movement abdomen distended, tympanic,non tender Abdominal Xray: partial small bowel obstruction 11/12/19 09:58 CXR: no acute findings 11/12/19 10:17 CT abdomen: IMPRESSION: NO PE. MEDIASTINAL LYMPHADENOPATHY WHICH MAY BE RELATED TO GRANULOMATOUS DISEASE. discussed with Dr Tejeda (surgery), admit to medicine, will see patient later, hold off on antibiotics at this time 11/12/19 10:22 discussed with amelie Wheeler to admit for partial small bowel obstruction 11/12/19 10:27 discussed plan with patient and father 11/12/19 11:24 adequate placement of NG tube on CXR
[2019-11-12 11:04] LABS: Urine Bilirubin Negative (NEGATIVE); Urine Blood Negative /ul (NEGATIVE); Urine Ketone 5 mg/dL (NEGATIVE); Urine Nitrite Negative (NEGATIVE); Urine Protein 15 mg/dL (NEGATIVE); Urine Urobilinogen Normal (NORMAL)
[2019-11-12 11:17] LABS: Urine Appearance Slightly Cloudy (CLEAR); Urine Bacteria None Seen; Urine Color Yellow; Urine RBC None Seen /hpf (0-5); Urine WBC 0-5 /hpf (0-5)
[2019-11-12] MEDS ORDERED: ONDANSETRON HCL/PF 2 MG/ML VIAL IV PRN (11:27)
--- NOTE | 2019-11-12 12:31 | HP ---
Chief Complaint - Chief Complaint Date of Service: 11/12/19 Time of Service: 12:04 Chief Complaint: Vomiting History of Present Illness: This 49-year-old man began vomiting brown material late last night or early this morning. It was associated with some mild abdominal pain, which has since resolved. There was no observable blood in the vomitus. There was no diarrhea. There have been no fever chills or sweats. The patient himself is a fair to poor historian, however his father was present provided most of the history. He now has an NG tube placed. We will adjust its position a little, and then if the next x-ray is okay, we will attached to low intermittent suction. Chronically he has recurrent episodes of this same presentation, presumably due to adhesions, and then partial small bowel obstruction. Imaging from the emergency room is consistent with partial small bowel obstruction. Dr. Gabriella Junior, general surgery, has already been consulted by the emergency room physician. I did look at the NG placement films, and the tube needs to be pulled back a little bit. At the present time his resuscitation status is unknown. His father said he will talk with Marino and with Marino's mother, and arrive at a decision. I asked that he let the nurse know, once they have decided. 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) Onset Date: Unknown Abdominal adhesions (Chronic) Onset Date: Unknown Seizure disorder (Chronic) Onset Date: Unknown Acute respiratory failure (Acute) Onset Date: Unknown Brain neoplasm malignant Onset Date: 1990 Elbow injury Onset Date: Unknown olecranon fracture, right, closed, initial encounter Onset Date: 2016 Surgical History: Surgical History (Last Reviewed 11/12/19 @ 12:09 by Holland Nagy MD) Elbow fracture Onset Date: 2017 ORIF rt olecranon History of brain surgery Onset Date: 1990 Malignant tumor-[facility] ORIF Onset Date: 2016 Breder-right olecranon fx excision of skin lesion Onset Date: 2012 Tins[place]osely-left lower leg-Neurilemmoma exploratory laparotomy with lysis of adhesions Onset Date: 2016 [place] shunt placement Onset Date: 1990 2 brain shunts Family History: Family History (Last Reviewed 11/12/19 @ 12:09 by Holland Nagy MD) Mother Alive and well Father Alive and well Throat cancer Grandmother Stomach cancer Grandfather , leukemia age 41 Leukemia Aunt Ovarian cancer, Onset Age: 41 Social History: (Last Reviewed 11/12/19 @ 12:09 by Holland Nagy MD) Social History: Marital status: Single household members: family current occupational status: disabled Highest education level completed: high school graduate Service: Yes branch: [employer] status: medically disch/retired Tobacco: Smoking Status: Former smoker Alcohol: alcohol intake: former Substance Use: substance use type: does not use Dietary Habits: caffeine: Yes Type: coffee Review Of Systems (GEN) - Review of Systems Generalized/Overall Review: Absent: Weakness, Chills, Fever, Diaphoresis EENTM: Absent: Eye Pain, Blurred Vision Respiratory: Absent: Cough, Shortness of Breath Cardiac: Absent: Chest Pain, Edema Abdominal: Present: Nausea, Vomiting, Abdominal Pain Genitourinary: Absent: Frequency, Dysuria Musculoskeletal: Present: No Symptoms Reported Neurological: Present: Pre-existing Deficit. Absent: Headache, Anxiety, Depressed Skin: Absent: Lesions, Rash Endocrine: Absent: Intolerance to Cold, Intolerance to Heat Misc: All systems neg except as marked Immunizations: IMMUNIZATION HX Immunizations Up to Date Yes History of Influenza Vaccine No Hx Pneumococcal Vaccination No Allergies/Adverse Reactions: Allergies Allergy/AdvReac Type Severity Reaction Status Date / Time No Known Allergies Allergy Verified 11/12/19 12:00 Home Medications: HOME MEDICATIONS Haloperidol [Haldol] 20 mg PO BID tab 01/23/19 [Last Taken Unknown] QUEtiapine FUMARATE [Seroquel] 400 mg PO DAILY tab 01/23/19 [Last Taken Unknown] QUEtiapine FUMARATE [Seroquel] 500 mg PO HS tab 01/23/19 [Last Taken Unknown] divalproex 250 mg tablet,delayed release 1,250 mg PO DAILY tab 02/02/19 [Last Taken Unknown] docusate sodium 100 mg capsule 100 mg PO BID #60 cap 02/02/19 [Last Taken Unknown] lactulose 10 gram/15 mL oral solution See Rx Instructions PO BID #946 ml 07/09/19 [Last Taken Unknown] Oxybutynin Chloride [Ditropan] 2.5 mg PO HS 11/12/19 [Last Taken Unknown] Wheat Dextrin [Benefiber Clear SF (dextrin)] 3 g PO BID PRN 11/12/19 [Last Taken Unknown] Exam - Exam Vital Signs: Vital Signs - Last Taken Temp 37.0 C 11/12/19 11:30 Pulse 108 H 11/12/19 11:30 Resp 36 H 11/12/19 11:30 BP 152/84 H 11/12/19 11:30 Pulse Ox 90 L 11/12/19 11:30 Constitutional: Present: Alert, Oriented x3, Cooperative, Well developed, No distress, Obese ENT Exam: Present: normal ENT inspection, hearing grossly normal, other - NG tube in place Eye Exam: bilateral eye: normal inspection, PERRL, EOMI Neck: Present: non-tender, normal inspection. Absent: lymphadenopathy (R), lymphadenopathy (L), thyromegaly Back Exam: Present: normal inspection Respiratory: Present: chest non-tender, lungs clear, no respiratory distress Cardiovascular/Chest: Present: normal peripheral pulses, regular rate, rhythm, no edema, no gallop, no JVD, no murmur Peripheral Pulses: carotid (R): 1+, carotid (L): 1+ Abdomen: Present: Normal bowel sounds, soft, nontender, nondistended, no hepatospenomegaly, no masses, obese /Rectal: Present: Exam deferred Extremity: Present: normal inspection, no pedal edema, normal capillary refill Skin Exam: Present: normal color, warm/dry, no cyanosis, mottled Neurologic: Present: alert, other - Chronic impaired cognition due to TBI plus brain surgery for a malignant tumor in 1990. He has a shunt in place. He has a history of seizures. Diagnostic Studies: Abnormal Lab Results 11/12/19 11/12/19 11/12/19 Range/Units 07:14 07:14 10:48 WBC 18.7 H (4.0-10.5) K/mm3 Hgb 18.1 H (13.5-18.0) gm/dL MCH 33.2 H (27-31) pg Neutrophils % (Manual) 89 H (42-75) % Lymphocytes % (Manual) 5 L (20-51) % Neutrophils # (Manual) 16.6 H (1.3-6.0) K/mm3 Lymphocytes # (Manual) 0.9 L (1.5-3.5) k/mm3 Monocytes # (Manual) 1.1 H (0.0-1.0) k/mm3 Random Glucose 154 H (70-110) mg/dL Total Protein 9.0 H (6.2-8.2) gm/dL Urine pH 8.0 H (5.0-7.0) pH Urine Protein 15 H (NEGATIVE) mg/dL Laboratory Results WBC 18.7 K/mm3 (4.0-10.5) H 11/12/19 07:14 RBC 5.46 M/mm3 (4.7-6.0) 11/12/19 07:14 Hgb 18.1 gm/dL (13.5-18.0) H 11/12/19 07:14 Hct 51.2 % (42.0-52.0) 11/12/19 07:14 MCV 93.8 fl (78-100) 11/12/19 07:14 MCH 33.2 pg (27-31) H 11/12/19 07:14 MCHC 35.4 g/dl (32-36) 11/12/19 07:14 RDW 12.9 % (11.5-14.0) 11/12/19 07:14 Plt Count 303 K/mm3 (150-450) 11/12/19 07:14 MPV 10.7 fl (8-11.3) 11/12/19 07:14 Neutrophils % (Manual) 89 % (42-75) H 11/12/19 07:14 Lymphocytes % (Manual) 5 % (20-51) L 11/12/19 07:14 Monocytes % (Manual) 6 % (0-9) 11/12/19 07:14 Neutrophils # (Manual) 16.6 K/mm3 (1.3-6.0) H 11/12/19 07:14 Lymphocytes # (Manual) 0.9 k/mm3 (1.5-3.5) L 11/12/19 07:14 Monocytes # (Manual) 1.1 k/mm3 (0.0-1.0) H 11/12/19 07:14 Platelet Estimate Normal (NORMAL) 11/12/19 07:14 RBC Morphology Normal (NORMAL) 11/12/19 07:14 Sodium 134 mmol/L (132-142) 11/12/19 07:14 Plasma Sodium 135 mmol/L (130-142) 11/12/19 07:14 Potassium 4.2 mmol/L (3.4-4.6) 11/12/19 07:14 Chloride 99 mmol/L (97-106) 11/12/19 07:14 Carbon Dioxide 25.7 mmol/L (24-32.6) 11/12/19 07:14 Anion Gap 13.5 mmol/L (6.8-13.8) 11/12/19 07:14 BUN 11 mg/dL (6-23) 11/12/19 07:14 Creatinine 1.10 mg/dL (0.4-1.4) 11/12/19 07:14 Est GFR (Non-Af Amer) 76 mL/min (60-130) D 11/12/19 07:14 BUN/Creatinine Ratio 10.0 (9.0-21.6) 11/12/19 07:14 Random Glucose 154 mg/dL (70-110) H 11/12/19 07:14 Lactic Acid, Venous 1.6 mmol/L (0.4-2.0) 11/12/19 07:10 Calcium 9.8 mg/dL (7.9-10.9) 11/12/19 07:14 Calcium Adj for Albumin 9.6 mg/dL (8.4-10.2) 11/12/19 07:14 Total Bilirubin 0.4 mg/dL (0.0-1.1) 11/12/19 07:14 AST 17 U/L (0-48) 11/12/19 07:14 ALT 24 U/L (19-67) 11/12/19 07:14 Alkaline Phosphatase 87 U/L (50-170) 11/12/19 07:14 Total Protein 9.0 gm/dL (6.2-8.2) H 11/12/19 07:14 Albumin 3.8 gm/dl (3.4-5.0) 11/12/19 07:14 Amylase 75 U/L (25-115) 11/12/19 07:14 Lipase 104 U/L (73-393) 11/12/19 07:14 Urine Color Yellow 11/12/19 10:48 Urine Appearance Slightly cloudy (CLEAR) 11/12/19 10:48 Urine pH 8.0 pH (5.0-7.0) H 11/12/19 10:48 Ur Specific [place] 1.010 SP.GR. (1.005-1.030) 11/12/19 10:48 Urine Protein 15 mg/dL (NEGATIVE) H 11/12/19 10:48 Urine Glucose (UA) Negative mg/dL (NEGATIVE) 11/12/19 10:48 Urine Ketones 5 mg/dL (NEGATIVE) 11/12/19 10:48 Urine Blood Negative /ul (NEGATIVE) 11/12/19 10:48 Urine Nitrate Negative (NEGATIVE) 11/12/19 10:48 Urine Bilirubin Negative mg/dl (NEGATIVE) 11/12/19 10:48 Prot Sulfosalicylic Acd Negative mg/dL (0) 11/12/19 10:48 Urine Urobilinogen Normal EU/dl (NORMAL) 11/12/19 10:48 Ur Leukocyte Esterase Negative /ul (NEGATIVE) 11/12/19 10:48 Urine RBC None seen /hpf (0-5) 11/12/19 10:48 Urine WBC 0-5 /hpf (0-5) 11/12/19 10:48 Ur Epithelial Cells 0-5 /hpf (0-5) 11/12/19 10:48 Urine Bacteria None seen (NONE) 11/12/19 10:48 Urine Culture Comments No culture indicated 11/12/19 10:48 Assessment/Plan - Assessment/Plan (1) SBO (small bowel obstruction) Assessment: This has been a recurrent problem. Most likely this represents another small bowel obstruction. There is a modestly elevated white blood count, possibly due to the stress of this illness. We will approach it by rechecking his blood count tomorrow and also as needed. Treatment will be conservative with IV fluids, and NG tube and surgical consult. We will convert his anticonvulsant and his Haldol to parenteral form. We will restart the other medications as soon as he is able to take things by mouth. Problem: Acute (2) Abdominal adhesions Problem: Chronic (3) Seizure disorder Problem: Chronic (4) explosive operator grenade shunt Problem: Chronic (5) Psychiatric disorder Problem: Chronic (6) History of brain tumor Problem: Chronic (7) TBI (traumatic brain injury) Problem: Chronic Qualifiers: Encounter type: subsequent encounter (8) Constipation Problem: Chronic Qualifiers: Constipation type: slow transit constipation
[2019-11-12] MEDS: VALPROIC ACID IV SCH ×2 (12:39→20:44)
[2019-11-12] MEDS: NORMAL SALINE IV SCH ×2 (12:39→20:44)
[2019-11-12] MEDS: ENOXAPARIN SODIUM 40 MG/0.4 ML SYRG SC SCH (12:43)
[2019-11-12] MEDS: HALOPERIDOL LACTATE 5 MG/ML VIAL IM SCH ×2 (12:44→22:34)
--- NOTE | 2019-11-12 13:12 | PN ---
Progescharlie Note - Interim Date: 11/12/19 Time: 13:12 Narrative: 11/12/19 13:12 Reviewed most recent chest x-ray for NG tube placement. It is all right to proceed with using the tube.
[2019-11-12] MEDS: POTASSIUM CHLORIDE 20 MEQ in DEXTROSE 5%-NORMAL SALINE 990 ML IV SCH ×2 (13:40→22:30)
--- NOTE | 2019-11-12 13:57 | CONS ---
[facility] - General Date of Service: 11/12/19 Narrative: Small bowel obstruction Source: patient Exam Limitations: no limitations - History of Present Illness Initial Comments: Marino is a pleasant 49-year-old male who is a poor historian. He denies any flatus today, but had flatus yesterday. He complains of pain from the tube. He states his nose is painful. He denies any abdominal pain. He has a history of small bowel obstructions. His family is not at the bedside. Timing/Duration: 24 hours Severity: moderate Modifying Factors - (Worsens): Reports: eating, movement Modifying Factors - (Improves): Reports: medication Associated Symptoms: nausea, vomiting Allergies/Adverse Reactions: Allergies No Known Allergies Allergy (Verified 11/12/19 12:00) Home Medications: Home Medications Medication Instructions Recorded Last Taken Haloperidol [Haldol] 20 mg PO BID tab 01/23/19 Unknown QUEtiapine FUMARATE [Seroquel] 400 mg PO DAILY tab 01/23/19 Unknown QUEtiapine FUMARATE [Seroquel] 500 mg PO HS tab 01/23/19 Unknown divalproex 250 mg tablet,delayed 1,250 mg PO DAILY tab 02/02/19 Unknown release docusate sodium 100 mg capsule 100 mg PO BID #60 cap 02/02/19 Unknown lactulose 10 gram/15 mL oral See Rx Instructions PO BID #946 ml 07/09/19 Unknown solution Oxybutynin Chloride [Ditropan] 2.5 mg PO HS 11/12/19 Unknown Wheat Dextrin [Benefiber Clear SF 3 g PO BID PRN 11/12/19 Unknown (dextrin)] Procedures Introduction of Local Anesthetic into Peripheral Nerves and Plexi, Percutaneous Approach (06/28/17) Release Small Intestine, Open Approach (06/30/17) Reposition Right Ulna with Internal Fixation Device, Open Approach (06/28/17) Medications - Medications Current Medications: Current Medications Enoxaparin Sodium (Lovenox) 40 mg SC Q24H [facility] Stop: 12/12/19 11:31 Last Admin: 11/12/19 12:43 Dose: 40 mg Documented by: Haloperidol Lactate (Haldol) 12 mg IM Q12H [facility] Stop: 12/12/19 11:31 Last Admin: 11/12/19 12:44 Dose: 12 mg Documented by: Valproic Acid 400 mg/ Sodium (Chloride) 54 mls @ 50 mls/hr IV Q8H [facility] Stop: 11/26/19 12:16 Last Admin: 11/12/19 12:39 Dose: 50 mls/hr Documented by: Review of Systems - Review of Systems Generalized/Overall Review: Present: Malaise EENTM: Present: Nose Pain Respiratory: Present: No Symptoms Reported Cardiac: Present: No Symptoms Reported Abdominal: Present: Constipation Genitourinary: Present: No Symptoms Reported Musculoskeletal: Present: No Symptoms Reported Neurological: Present: No Symptoms Reported Skin: Present: No Symptoms Reported Endocrine: Present: No Symptoms Reported Physical Examination - Exam Vital Signs: Vital Signs - Last Taken Temp 36.7 C 11/12/19 13:06 Pulse 112 H 11/12/19 13:06 Resp 16 11/12/19 13:06 BP 149/81 H 11/12/19 13:06 Pulse Ox 90 L 11/12/19 13:06 O2 Oxygen Delivery Method Room Air Constitutional: Present: Alert, Oriented x3, Cooperative ENT Exam: Present: hearing grossly normal Eye Exam: bilateral eye: normal inspection Neck: Present: supple Breasts: Present: Exam deferred Respiratory: Present: lungs clear, normal breath sounds Cardiovascular/Chest: Present: regular rate, rhythm Abdomen: Present: soft, nontender, obese, distended. Absent: nondistended, tender, guarding, rigidity, rebound tenderness /Rectal: Present: Exam deferred Extremity: Present: normal range of motion Skin Exam: Present: normal color Lymphatic: Present: no adenopathy Neurologic: Present: radiochemical technician II-XII nml as tested Appearance: Present: appropriate appearance Eye contact: Present: cooperative, good eye contact - Results and Findings: Lab/Microbiology results last 24 hrs: Abnormal/Pending Laboratory Last 24 HRS 11/12/19 11/12/19 11/12/19 10:48 07:14 07:14 WBC 18.7 H Hgb 18.1 H MCH 33.2 H Neutrophils % (Manual) 89 H Lymphocytes % (Manual) 5 L Neutrophils # (Manual) 16.6 H Lymphocytes # (Manual) 0.9 L Monocytes # (Manual) 1.1 H Random Glucose 154 H Total Protein 9.0 H Urine pH 8.0 H Urine Protein 15 H - Assessments/Findings (1) SBO (small bowel obstruction) Problem: Acute Plan - Plan Plan: Continue with NG tube and IV fluids. Add Chloraseptic spray. Has a history of adhesions and small bowel obstructions. Recheck white count in the morning.
[2019-11-12] MEDS: PHENOL 180 SPRAY BTL MM PRN ×3 (16:56→22:10)
[2019-11-13] MEDS: NORMAL SALINE IV SCH ×3 (04:10→20:57)
[2019-11-13] MEDS: VALPROIC ACID IV SCH ×3 (04:10→20:57)
[2019-11-13 06:34] LABS: Anion Gap 11.4 mmol/L (6.8-13.8); BUN/Creatinine Ratio 14.3 (9.0-21.6); Carbon Dioxide 29.7 mmol/L (24-32.6); Estimated Creat Clear 98.9; Potassium 4.1 mmol/L (3.4-4.6)
[2019-11-13 06:41] LABS: Hematocrit 45.5 % (42.0-52.0); Hemoglobin 15.5 gm/dL (13.5-18.0); Mean Corpuscular Hemoglobin 32.7 pg (27-31); Mean Corpuscular Hgb Conc 34.1 g/dl (32-36); Mean Platelet Volume 10.8 fl (8-11.3); Platelet Count 271 K/mm3 (150-450); Red Blood Count 4.74 M/mm3 (4.7-6.0); Red Cell Distribution Width 13.4 % (11.5-14.0); White Blood Count 14.2 K/mm3 (4.0-10.5)
[2019-11-13 06:42] LABS: Total Cells Counted 100
[2019-11-13 07:04] LABS: Basophil 1 % (0-1); Lymphocyte 23 % (20-51); Monocyte 13 % (0-9); Neutrophil 63 % (42-75); Neutrophil # 8.9 K/mm3 (1.3-6.0)
[2019-11-13 07:05] LABS: Platelet Estimate Normal (NORMAL)
[2019-11-13 07:06] LABS: RBC Morphology Normal (NORMAL)
--- NOTE | 2019-11-13 08:10 | PN ---
Subjective - Date and Time Seen Date: 11/13/19 Time: 07:30 Subjective Narrative: Both the patient and his mother were present. Both relate that he has been passing gas but no bowel movement. There has been no nausea or vomiting. He pulled his NG tube out about 5 this morning. It was reinserted around that time and there is been minimal discharge since. He and his family have decided that he will be a full code. He denies pain. Vitals are stable and he has had no fever. His chemistries this morning are unremarkable and his white blood count decreased to 14.2. We will plan to recheck his blood count again tomorrow. He has not been up and walking yet. He said his head feels like it is shrinking. Although we have continued the Haldol because we can give it parenterally, his other psych meds we have not yet restarted because of him being n.p.o. and having an NG tube. We will restart that medication as soon as possible. He is only a fair historian. Objective - Review of Systems Generalized/Overall Review: Denies: Chills, Fever, Diaphoresis EENTM: Denies: Eye Pain, Blurred Vision Cardiac: Denies: Chest Pain Abdominal: Denies: Nausea, Vomiting, Abdominal Pain Genitourinary Symptoms: Denies: Frequency, Dysuria Musculoskeletal Complaints: Denies: Joint Pain, Back Pain Neurological: Reports: Anxiety. Denies: Headache, Depressed Skin: Denies: Lesions, Rash Endocrine: Denies: Intolerance to Cold, Intolerance to Heat Misc: All systems neg except as marked - Vitals Vitals: Last Vital Signs Temp 37.2 C 11/13/19 07:32 Pulse 93 11/13/19 07:32 Resp 20 11/13/19 07:32 BP 166/78 H 11/13/19 07:32 Pulse Ox 93 11/13/19 07:32 Vitals have been stable. Blood pressure is a little elevated this morning at 166/78. The plan for his blood pressure will be to continue monitoring. His mother reports that he has been restless all night. - Abnormal Lab Findings Abnormal Lab Findings: Abnormal Lab Results 11/12/19 11/13/19 11/13/19 Range/Units 10:48 06:24 06:24 WBC 14.2 H D (4.0-10.5) K/mm3 MCH 32.7 H (27-31) pg Monocytes % (Manual) 13 H (0-9) % Neutrophils # (Manual) 8.9 H (1.3-6.0) K/mm3 Monocytes # (Manual) 1.8 H (0.0-1.0) k/mm3 Random Glucose 113 H (70-110) mg/dL Urine pH 8.0 H (5.0-7.0) pH Urine Protein 15 H (NEGATIVE) mg/dL Comments:: Chemistries are normal. White blood count is 14.2. We will repeat a CBC tomorrow morning - Exam Constitutional: Present: Alert, Cooperative, Well developed, Obese - BMI 31.2 ENT Exam: Present: normal ENT inspection, hearing grossly normal, other - NG tube in place Neck: Present: normal inspection. Absent: lymphadenopathy (R), lymphadenopathy (L), thyromegaly Breasts: Present: Exam deferred Respiratory: Present: chest non-tender, lungs clear, no respiratory distress Cardiovascular/Chest: Present: normal peripheral pulses, regular rate, rhythm, no edema, no gallop, no JVD, no murmur Abdomen: Present: soft, nontender, nondistended, no hepatospenomegaly, no masses, hypoactive /Rectal: Present: Exam deferred Extremity: Present: normal inspection, normal capillary refill Skin Exam: Present: normal color, warm/dry, no cyanosis Lymphatic: Present: no adenopathy Neurologic: Present: other - Affect is chronically on. He is oriented x2. He does not know what time it is. He does not know the date. Appearance: Present: appropriate appearance, impaired insight Eye contact: Present: cooperative, good eye contact Thoughts: Present: no apparent hallucination, other - He says his head feels like it is shrinking Assessment/Plan - Problems/Diagnosis (1) SBO (small bowel obstruction) Problem: Acute Narrative: Appears to be improving. He has bowel sounds. He is passing gas. He has had no vomiting. The plan will be to clamp his NG tube and monitor. If he does well, we will start him on clear liquids and resume his oral medications. 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
--- NOTE | 2019-11-13 08:12 | PN ---
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 I reviewed the most recent chest x-ray when I made rounds this morning. NG tube is suitably placed.
[2019-11-13] MEDS: POTASSIUM CHLORIDE 20 MEQ in DEXTROSE 5%-NORMAL SALINE 990 ML IV SCH ×2 (08:23→17:22)
--- NOTE | 2019-11-13 10:14 | PN ---
Dictated Progress Note - Date and Time Seen: Date: 11/13/19 Time: 10:13 - Progress Note Narrative: pt not in room Pt is having less abd pain, c/o sore throat. Passing flatus. Vital Signs - Last Taken Temp 37.2 C 11/13/19 07:32 Pulse 93 11/13/19 07:32 Resp 20 11/13/19 07:32 BP 166/78 H 11/13/19 07:32 Pulse Ox 93 11/13/19 07:32 Abnormal/Pending Laboratory Last 24 HRS 11/13/19 11/13/19 11/12/19 06:24 06:24 10:48 WBC 14.2 H D MCH 32.7 H Monocytes % (Manual) 13 H Neutrophils # (Manual) 8.9 H Monocytes # (Manual) 1.8 H Random Glucose 113 H Urine pH 8.0 H Urine Protein 15 H NAD Abd softer skin warm and dry respirations non labored Imp: recurrent SBO- resolving Plan: cont conservative treatment
[2019-11-13] MEDS: PHENOL 180 SPRAY BTL MM PRN (11:28)
[2019-11-13] MEDS: HALOPERIDOL LACTATE 5 MG/ML VIAL IM SCH ×2 (11:29→23:08)
[2019-11-13] MEDS: ENOXAPARIN SODIUM 40 MG/0.4 ML SYRG SC SCH (11:41)
[2019-11-14] MEDS: POTASSIUM CHLORIDE 20 MEQ in DEXTROSE 5%-NORMAL SALINE 990 ML IV SCH ×3 (03:21→21:07)
[2019-11-14] MEDS: VALPROIC ACID IV SCH ×3 (03:33→19:35)
[2019-11-14] MEDS: NORMAL SALINE IV SCH ×3 (03:33→19:35)
[2019-11-14 06:47] LABS: Hematocrit 44.3 % (42.0-52.0); Mean Cell Volume 97.4 fl (78-100); Mean Corpuscular Hgb Conc 33.9 g/dl (32-36); Mean Platelet Volume 11.3 fl (8-11.3); Platelet Count 246 K/mm3 (150-450); Red Blood Count 4.55 M/mm3 (4.7-6.0); Red Cell Distribution Width 13.4 % (11.5-14.0); White Blood Count 14.2 K/mm3 (4.0-10.5)
[2019-11-14 06:49] LABS: Total Cells Counted 100
[2019-11-14 06:53] LABS: Lymphocyte 29 % (20-51); Monocyte 13 % (0-9); Neutrophil 58 % (42-75); Neutrophil # 8.2 K/mm3 (1.3-6.0); Platelet Estimate Normal (NORMAL); RBC Morphology Normal (NORMAL)
--- NOTE | 2019-11-14 12:08 | PN ---
Subjective - Date and Time Seen Date: 11/14/19 Time: 11:45 Subjective Narrative: Patient and his father were present at the time of my visit today. The patient is much better. He has no abdominal pain or cramps. He has no nausea or vomiting. He passed 1 bowel movement last night and 1 again late this morning. There is been no nausea or vomiting. He still has his NG tube attached to low intermittent suction. Psychiatric issues seem stable. White blood count is still about 14.2. I do not think this is a significant problem, however we will check it again tomorrow morning. Flat plate and upright the abdomen from this morning show that the small bowel obstruction is gone, although a slight thickening of the small bowel wall is noted. Objective - Review of Systems Generalized/Overall Review: Reports: No Symptoms Reported EENTM: Denies: Eye Pain, Blurred Vision Respiratory: Denies: Cough, Shortness of Breath Cardiac: Denies: Chest Pain, Edema Abdominal: Denies: Nausea, Vomiting, Abdominal Pain Genitourinary Symptoms: Denies: Frequency, Dysuria Musculoskeletal Complaints: Reports: No Symptoms Reported Neurological: Reports: No Symptoms Reported Skin: Reports: No Symptoms Reported Endocrine: Reports: No Symptoms Reported Misc: All systems neg except as marked - Vitals Vitals: Last Vital Signs Temp 36.8 C 11/14/19 11:00 Pulse 80 11/14/19 11:00 Resp 16 11/14/19 11:00 BP 130/83 11/14/19 11:00 Pulse Ox 93 11/14/19 11:00 - Abnormal Lab Findings Abnormal Lab Findings: Abnormal Lab Results 11/14/19 Range/Units 06:05 WBC 14.2 H (4.0-10.5) K/mm3 RBC 4.55 L (4.7-6.0) M/mm3 MCH 33.0 H (27-31) pg Monocytes % (Manual) 13 H (0-9) % Neutrophils # (Manual) 8.2 H (1.3-6.0) K/mm3 Lymphocytes # (Manual) 4.1 H (1.5-3.5) k/mm3 Monocytes # (Manual) 1.8 H (0.0-1.0) k/mm3 Comments:: His voided urine at the time of my examination was small in amount and dark in color consistent with concentrated urine. I will increase his IV rate slightly to take care of this problem. - EKG/Xray Findings XRAY: abdomen Interpretation: Reviewed by me - Exam Constitutional: Present: Alert, Cooperative, Well developed, Other - Oriented x2. Does not know date or time., Obese ENT Exam: Present: normal ENT inspection, hearing grossly normal Neck: Present: normal inspection. Absent: lymphadenopathy (R), lymphadenopathy (L), thyromegaly Breasts: Present: Exam deferred Respiratory: Present: chest non-tender, lungs clear, no respiratory distress Cardiovascular/Chest: Present: normal peripheral pulses, regular rate, rhythm, no edema, no gallop, no JVD, no murmur Abdomen: Present: Normal bowel sounds, soft, nontender, nondistended, no hepatospenomegaly, no masses, obese /Rectal: Present: Exam deferred Extremity: Present: normal inspection, no pedal edema, normal capillary refill Skin Exam: Present: normal color, warm/dry, no cyanosis Lymphatic: Present: no adenopathy Neurologic: Present: other - Chronically odd affect Appearance: Present: appropriate appearance, neat, impaired insight Eye contact: Present: cooperative, good eye contact Thoughts: Present: no apparent hallucination Assessment/Plan - Problems/Diagnosis (1) SBO (small bowel obstruction) Problem: Acute Narrative: Appears to be improving. We will clamp his NG tube. If there is no vomiting by suppertime today we will remove the tube and start a clear liquid diet. We will repeat a CBC tomorrow morning. We will increase his IV rate slightly as his urine appears concentrated. 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
[2019-11-14] MEDS: ENOXAPARIN SODIUM 40 MG/0.4 ML SYRG SC SCH (12:50)
[2019-11-14] MEDS: HALOPERIDOL LACTATE 5 MG/ML VIAL IM SCH ×2 (12:50→23:53)
[2019-11-15] MEDS: VALPROIC ACID IV SCH (04:22)
[2019-11-15] MEDS: NORMAL SALINE IV SCH (04:22)
[2019-11-15] MEDS: POTASSIUM CHLORIDE 20 MEQ in DEXTROSE 5%-NORMAL SALINE 990 ML IV SCH ×2 (05:11→14:46)
[2019-11-15 06:44] LABS: Hemoglobin 14.8 gm/dL (13.5-18.0); Mean Cell Volume 94.9 fl (78-100); Mean Corpuscular Hemoglobin 32.7 pg (27-31); Mean Corpuscular Hgb Conc 34.4 g/dl (32-36); Mean Platelet Volume 10.8 fl (8-11.3); Platelet Count 248 K/mm3 (150-450); Red Blood Count 4.53 M/mm3 (4.7-6.0); Red Cell Distribution Width 12.8 % (11.5-14.0); White Blood Count 12.8 K/mm3 (4.0-10.5)
[2019-11-15 06:46] LABS: Total Cells Counted 100
--- NOTE | 2019-11-15 06:47 | PN ---
Subjective - Date and Time Seen Date: 11/15/19 Time: 06:10 Subjective Narrative: Both the patient and his mother were present at the time of my examination. He has been doing well. His NG tube has been out and he has been on clear liquids since supper yesterday. No abdominal pain, vomiting or nausea. Vital signs are stable. There is been no fever. CBC results are still pending from this morning. Objective - Review of Systems Generalized/Overall Review: Reports: No Symptoms Reported EENTM: Reports: No Symptoms Reported Respiratory: Reports: No Symptoms Reported Cardiac: Reports: No Symptoms Reported Abdominal: Reports: No Symptoms Reported Genitourinary Symptoms: Reports: No Symptoms Reported Musculoskeletal Complaints: Reports: No Symptoms Reported Neurological: Reports: No Symptoms Reported Skin: Reports: No Symptoms Reported Endocrine: Reports: No Symptoms Reported Misc: All systems neg except as marked - Vitals Vitals: Last Vital Signs Temp 37.0 C 11/15/19 01:57 Pulse 84 11/15/19 01:57 Resp 18 11/15/19 01:57 BP 144/67 H 11/15/19 01:57 Pulse Ox 93 11/15/19 01:57 - Abnormal Lab Findings Abnormal Lab Findings: Abnormal Lab Results 11/14/19 Range/Units 06:05 WBC 14.2 H (4.0-10.5) K/mm3 RBC 4.55 L (4.7-6.0) M/mm3 MCH 33.0 H (27-31) pg Monocytes % (Manual) 13 H (0-9) % Neutrophils # (Manual) 8.2 H (1.3-6.0) K/mm3 Lymphocytes # (Manual) 4.1 H (1.5-3.5) k/mm3 Monocytes # (Manual) 1.8 H (0.0-1.0) k/mm3 - Exam Constitutional: Present: Alert, Cooperative, Well developed, No distress, Other - Oriented x2. Not oriented to date or time, Obese ENT Exam: Present: normal ENT inspection, hearing grossly normal Neck: Present: normal inspection. Absent: lymphadenopathy (R), lymphadenopathy (L), thyromegaly Breasts: Present: Exam deferred Respiratory: Absent: lungs clear, respiratory distress Cardiovascular/Chest: Present: normal peripheral pulses, regular rate, rhythm, no chest tenderness, no edema, no gallop, no JVD, no murmur Abdomen: Present: Normal bowel sounds, soft, nontender, nondistended, no hepatospenomegaly, no masses, obese /Rectal: Present: Exam deferred Extremity: Present: normal range of motion, normal inspection Skin Exam: Present: normal color, warm/dry, no cyanosis Lymphatic: Present: no adenopathy Neurologic: Present: alert, other - Chronically odd affect Appearance: Present: appropriate appearance, neat, impaired insight Eye contact: Present: cooperative, good eye contact Thoughts: Absent: normal thought pattern Assessment/Plan - Problems/Diagnosis (1) SBO (small bowel obstruction) Problem: Acute Narrative: He is doing very well. He is taking clear liquids okay. He is having bowel movements. He has no abdominal pain nausea or vomiting. The plan is to switch to a regular diet and observe. If he does well through the day, we will most likely discharge him this evening. We are still waiting for his CBC results from this morning. We will switch to entirely oral medication. 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
[2019-11-15 07:14] LABS: Eosinophil 1 % (0-3); Lymphocyte 36 % (20-51); Monocyte 9 % (0-9); Neutrophil 54 % (42-75); Neutrophil # 6.9 K/mm3 (1.3-6.0); Platelet Estimate Normal (NORMAL); RBC Morphology Normal (NORMAL)
[2019-11-15] MEDS: DIVALPROEX SODIUM PO SCH ×2 (08:23)
[2019-11-15] MEDS: DOCUSATE SODIUM 100 MG CAPSULE PO SCH ×2 (08:23→20:17)
[2019-11-15] MEDS: LACTULOSE 10 G/15 ML SYRUP PO SCH ×2 (08:25→20:20)
[2019-11-15] MEDS ORDERED: HALOPERIDOL 5 MG TABLET PO SCH (09:00)
[2019-11-15] MEDS ORDERED: DIVALPROEX SODIUM 250 MG TAB.SR.24H PO SCH (09:00)
[2019-11-15] MEDS ORDERED: QUEtiapine FUMARATE 100 MG TABLET PO SCH ×3 (09:00→21:00)
[2019-11-15] MEDS: ENOXAPARIN SODIUM 40 MG/0.4 ML SYRG SC SCH (11:01)
--- NOTE | 2019-11-15 17:18 | PN ---
Tamara Note - Interim Date: 11/15/19 Time: 17:13 Narrative: 11/15/19 17:13 This afternoon's nurse called me to say that he was very drowsy. She also reported that his father said he was staring off into the distance in a way that he does not normally do at home. His partial small bowel obstruction seems to still not be a problem. He has no abdominal pain. He has had no vomiting. When he was n.p.o., I converted his Haldol from 20 mg twice a day by mouth to 12 mg twice a day IM. I continued his seizure medication IV. He received no quetiapine at all. This morning I converted his Haldol from IM to oral, 20 mg twice a day. I also restarted his quetiapine at his usual home dose, 40 mg in the morning and 500 mg at night. At the present time he is beginning to wake up. His father was also present at the time of my visit. On physical exam there were no lateralizing findings. Heart and lungs are normal. Abdomen is unremarkable on exam. Skin is pink and warm. There are good pulses. His vitals have been stable. Since he is not taking oral fluids, I will temporarily restart his IV so that he does not get dehydrated. I have already stopped the quetiapine for the time being. I will adjust down his Haldol dose to 10 mg twice per day. I will continue his seizure medication. The plan is to allow him to continue to wake up. If there are still problems tomorrow morning we will do a CT scan of his brain. His father understands my assessment and plan and agrees. When I restart the quetiapine again, we will use a smaller dose that he had normally been on at home.
[2019-11-15] MEDS: DEXTROSE 5%-NORMAL SALINE 1,000 ML IV PRN (18:58)
[2019-11-15] MEDS: HALOPERIDOL 5 MG TABLET PO SCH (20:17)
[2019-11-15] MEDS ORDERED: PSYLLIUM SEED 1 PACKET PACKET PO SCH (21:00)
[2019-11-15] MEDS ORDERED: OXYBUTYNIN CHLORIDE 5 MG TABLET PO SCH (21:00)
[2019-11-16] MEDS: DEXTROSE 5%-NORMAL SALINE 1,000 ML IV PRN (02:05)
--- NOTE | 2019-11-16 07:41 | DS ---
(1) SBO (small bowel obstruction) Diagnosis(s): He is back to his normal self at home. His mother reports that he has these spells and has had them for many years sometimes she cannot wake him up. Can last part of a day all day or even several days. For that reason we will send him home today, understanding why he became so somnolent and sedated here in the hospital yesterday. He will go home on his usual doses of medications. His white count when he came in was a little over 18,000. It dropped to a little over 12,000. My assessment is that his white blood count was elevated due to the stress of this illness. 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 She explained that he has times of extreme sleepiness even to the point of nonresponsiveness, this is most often following a night where he has not slept. It can last 2 or 3 days. Is been going on for a long time. He is awake and back to himself this morning. Given what the mother reported, this is not a medication side effect, moreover it is his usual pattern of sleeping. He has no abdominal pain, he is eating breakfast, he denies nausea. There is been no vomiting. He has been moving his bowels. He has been walking in the halls. Procedures Performed: none Results and Findings: Lab Pending Results 11/12/19 07:10: Lactic Acid, Venous 1.6 11/12/19 07:14: WBC 18.7 H, RBC 5.46, Hgb 18.1 H, Hct 51.2, MCV 93.8, MCH 33.2 H, MCHC 35.4, RDW 12.9, Plt Count 303, MPV 10.7, Neutrophils % (Manual) 89 H, Lymphocytes % (Manual) 5 L, Monocytes % (Manual) 6, Neutrophils # (Manual) 16.6 H, Lymphocytes # (Manual) 0.9 L, Monocytes # (Manual) 1.1 H, Platelet Estimate Normal, RBC Morphology Normal 11/12/19 07:14: Sodium 134, Plasma Sodium 135, Potassium 4.2, Chloride 99, Carbon Dioxide 25.7, Anion Gap 13.5, BUN 11, Creatinine 1.10, Est GFR (Non-Af Amer) 76 D, BUN/Creatinine Ratio 10.0, Random Glucose 154 H, Calcium 9.8, Calcium Adj for Albumin 9.6, Total Bilirubin 0.4, AST 17, ALT 24, Alkaline Phosphatase 87, Total Protein 9.0 H, Albumin 3.8, Amylase 75, Lipase 104 11/12/19 10:48: Urine Color Yellow, Urine Appearance Slightly cloudy, Urine pH 8.0 H, Ur Specific [place] 1.010, Urine Protein 15 H, Urine Glucose (UA) Negative, Urine Ketones 5, Urine Blood Negative, Urine Nitrate Negative, Urine Bilirubin Negative, Prot Sulfosalicylic Acd Negative, Urine Urobilinogen Normal, Ur Leukocyte Esterase Negative, Urine RBC None seen, Urine WBC 0-5, Ur Epithelial Cells 0-5, Urine Bacteria None seen, Urine Culture Comments No culture indicated 11/13/19 06:24: WBC 14.2 H D, RBC 4.74, Hgb 15.5, Hct 45.5, MCV 96.0, MCH 32.7 H, MCHC 34.1, RDW 13.4, Plt Count 271, MPV 10.8, Neutrophils % (Manual) 63, Lymphocytes % (Manual) 23, Monocytes % (Manual) 13 H, Basophils % (Manual) 1, Neutrophils # (Manual) 8.9 H, Lymphocytes # (Manual) 3.3, Monocytes # (Manual) 1.8 H, Basophils # (Manual) 0.1, Platelet Estimate Normal, RBC Morphology Normal 11/13/19 06:24: Sodium 141, Plasma Sodium 141, Potassium 4.1, Chloride 104, Carbon Dioxide 29.7, Anion Gap 11.4, BUN 15, Creatinine 1.05, Est GFR (Non-Af Amer) 80, BUN/Creatinine Ratio 14.3, Random Glucose 113 H, Calcium 8.0 11/14/19 06:05: WBC 14.2 H, RBC 4.55 L, Hgb 15.0, Hct 44.3, MCV 97.4, MCH 33.0 H, MCHC 33.9, RDW 13.4, Plt Count 246, MPV 11.3, Neutrophils % (Manual) 58, Lymphocytes % (Manual) 29, Monocytes % (Manual) 13 H, Neutrophils # (Manual) 8.2 H, Lymphocytes # (Manual) 4.1 H, Monocytes # (Manual) 1.8 H, Platelet Estimate Normal, RBC Morphology Normal 11/15/19 06:00: WBC 12.8 H, RBC 4.53 L, Hgb 14.8, Hct 43.0, MCV 94.9, MCH 32.7 H, MCHC 34.4, RDW 12.8, Plt Count 248, MPV 10.8, Neutrophils % (Manual) 54, Lymphocytes % (Manual) 36, Monocytes % (Manual) 9, Eosinophils % (Manual) 1, Neutrophils # (Manual) 6.9 H, Lymphocytes # (Manual) 4.6 H, Monocytes # (Manual) 1.2 H, Eosinophils # (Manual) 0.1, Platelet Estimate Normal, RBC Morphology Normal Discharge Location: Home Disposition: Home self-care Condition: Good Discharge Activity: Activity as tolerated, Partial-Weight bearing Discharge Diet: General/regular food Referrals: Holland Nagy MD [Primary Care Provider] - Additional Patient Instructions (free text): Please come and see me in about 1 week. Please call if there are problems or questions. Complete Home Medications List: Complete Home Medication List: Haloperidol [Haldol] 20 mg PO BID tab 01/23/19 QUEtiapine FUMARATE [Seroquel] 400 mg PO DAILY tab 01/23/19 QUEtiapine FUMARATE [Seroquel] 500 mg PO HS tab 01/23/19 divalproex 250 mg tablet,delayed release 1,250 mg PO DAILY tab 02/02/19 docusate sodium 100 mg capsule 100 mg PO BID #60 cap 02/02/19 Oxybutynin Chloride [Ditropan] 2.5 mg PO HS 11/12/19 Wheat Dextrin [Benefiber] 3 g PO BID PRN 11/12/19 Lactulose 30 ml PO BID 11/13/19
[2019-11-16] MEDS: DIVALPROEX SODIUM PO SCH ×2 (08:19)
[2019-11-16] MEDS: HALOPERIDOL 5 MG TABLET PO SCH (08:20)
[2019-11-16] MEDS: LACTULOSE 10 G/15 ML SYRUP PO SCH (08:20)
[2019-11-16] MEDS: DOCUSATE SODIUM 100 MG CAPSULE PO SCH (08:20)
[2019-11-16 09:29] VITALS: BP 155/78
== END 2019-11-16 09:34 | disposition home or self-care (01) | DRG 390 ==
LOC: ER 06:39 → MS 10:43
PROVIDERS: ADMIT Allergy & Immunology; ATTEND Allergy & Immunology
CPT/HCPCS: 36415; 71010; 71020; 71045; 71046; 74019; 74020; 74177; 80048; 80053; 81001; 82150; 83605; 83690; 85007; 85025; 93005; 96361; 96374; 99285; J2405; Q9967

== ENCOUNTER 2020-02-12 12:35 | Inpatient (IN) ==
[2020-02-12 13:39] LABS: Hematocrit 53.2 % (42.0-52.0); Hemoglobin 18.1 gm/dL (13.5-18.0); Mean Cell Volume 93.2 fl (78-100); Mean Corpuscular Hemoglobin 31.7 pg (27-31); Mean Platelet Volume 10.9 fl (8-11.3); Platelet Count 382 K/mm3 (150-450); Red Blood Count 5.71 M/mm3 (4.7-6.0); Red Cell Distribution Width 13.2 % (11.5-14.0); White Blood Count 15.6 K/mm3 (4.0-10.5)
[2020-02-12 13:43] LABS: Total Cells Counted 100
[2020-02-12] MEDS ORDERED: DIATRIZOATE MEGLUMINE, SODIUM 30 ML BTL PO ONE (13:45)
[2020-02-12] MEDS ORDERED: ONDANSETRON HCL/PF 2 MG/ML VIAL IV ONE (13:45)
--- NOTE | 2020-02-12 13:51 | ERNOTE ---
Abdominal HPI - Narrative Date of Service: 02/12/20 - General Chief Complaint: Abdominal Pain Time Seen by Provider: 02/12/20 13:42 Source: patient, family Exam Limitations: physical impairment - Immun/Allergies/Home Medications Immunizatons: IMMUNIZATION HX Immunizations Up to Date Yes History of Influenza Vaccine No Hx Pneumococcal Vaccination No Allergies/Adverse Reactions: Allergies No Known Allergies Allergy (Verified 02/12/20 12:43) Home Medications: HOME MEDICATIONS Haloperidol [Haldol] 20 mg PO BID tab 01/23/19 [Last Taken Unknown] QUEtiapine FUMARATE [Seroquel] 400 mg PO DAILY tab 01/23/19 [Last Taken Unknown] QUEtiapine FUMARATE [Seroquel] 500 mg PO HS tab 01/23/19 [Last Taken Unknown] divalproex 250 mg tablet,delayed release 1,250 mg PO DAILY tab 02/02/19 [Last Taken Unknown] Oxybutynin Chloride [Ditropan] 2.5 mg PO HS 11/12/19 [Last Taken Unknown] wheat dextrin 3 gram/3.5 gram oral powder packet 3 g PO DAILY #28 ea 11/30/19 [Last Taken Unknown] - Pain Score Pain Score #1 Pain Score: 1 Pain Radiation: no radiation - History of Present Illness Narrative: The patient is a 49 year old male who presents for vomiting and abdominal pain which has been present since midnight. There are associated symptoms of nausea and fatigue. The patient reports pain to LLQ, 1/10. There are no alleviating factors. There are no aggravating factors. Previous treatments have included: none. The past medical history includes: TBI with shunt placement, GERD, seizures, SBO and brain ca. The social history is positive for former smoker. The patient has had no ill contacts. Mother presents with patient and states that patient developed abdominal pain with vomiting last night at midnight. Mother states that patient did have large bowel movement following onset of symptoms. Review of Systems - Review of Systems Constitutional: Present: fatigue. Absent: fever, chills EYE: Present: no symptoms reported ENT: Present: no symptoms reported. Absent: ear pain, nasal drainage, sore throat Respiratory: Present: cough. Absent: shortness of breath Cardiology: Present: no symptoms reported. Absent: chest pain Gastrointestinal/Abdominal: Present: nausea, vomiting, abdominal pain, eating less, drinking less. Absent: diarrhea Genitourinary: Present: no symptoms reported. Absent: dysuria, decreased urinary output Musculoskeletal: Present: no symptoms reported Skin: Present: no symptoms reported. 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) Onset Date: Unknown Abdominal adhesions (Chronic) Onset Date: Unknown Seizure disorder (Chronic) Onset Date: Unknown Acute respiratory failure (Acute) Onset Date: Unknown Brain neoplasm malignant Onset Date: 1990 Elbow injury Onset Date: Unknown olecranon fracture, right, closed, initial encounter Onset Date: 2016 Surgical History: Surgical History (Last Reviewed 02/12/20 @ 13:48 by JOJO Anthony) Elbow fracture Onset Date: 2016 ORIF rt olecranon History of brain surgery Onset Date: 1990 Malignant tumor-Yuridia PENNY ORIF Onset Date: 2016 Breder-right olecranon fx excision of skin lesion Onset Date: 2012 Tinguely-left lower leg-Neurilemmoma exploratory laparotomy with lysis of adhesions Onset Date: 2016 [place] shunt placement Onset Date: 1990 2 brain shunts Family History: Family History (Last Reviewed 02/12/20 @ 13:48 by JOJO Anthony) Mother Alive and well Father Alive and well Throat cancer Grandmother Stomach cancer Grandfather , leukemia age 41 Leukemia Aunt Ovarian cancer, Onset Age: 41 Social History: (Last Reviewed 02/12/20 @ 13:49 by JOJO Anthony) Social History: Marital status: Single household members: family current occupational status: disabled Highest education level completed: high school graduate Service: Yes branch: [employer] Health status: medically disch/retired Tobacco: Smoking Status: Former smoker Alcohol: alcohol intake: former Substance Use: substance use type: does not use Dietary Habits: caffeine: Yes Type: coffee Physical Exam - Physical Exam General Appearance: Present: wd/wn, alert, no apparent distress Head Exam: Present: normal inspection, no evidence of injury Eye Exam: PERRL: bilateral, Other: bilateral - exophthalmos Neck: Present: normal inspection Respiratory: Present: no respiratory distress, normal breath sounds, no accessory muscle use, lungs clear Cardiovascular/Chest: Present: no murmur, tachycardia Gastrointestinal/Abdominal: Present: nondistended, soft, no organomegaly, tenderness - mild LLQ, abnormal bowel sounds - hypoactive to left upper and l ower quadrant. Absent: guarding, rebound, mass Extremity Exam: Present: no edema Neurological Exam: Present: alert, oriented, normal mood/affect, no motor/sensory deficits Skin Exam: Present: normal color, warm/dry Progress - Date and Time Seen: Date and Time: 02/12/20 13:23 Xray findings consistent with SBO, will proceed with CT imaging for further evaluation. Patient and family updated of plan of care. 02/12/20 16:00 Patient having vomiting associated with consumption of oral gastroview. 02/12/20 17:[address] results. Will proceed with NG insertion. Discussed case with , admit to medicine and will consult. Discussed case with , will insert NG, patient NPO and IV hydration. 02/12/20 17:56 Review of CXR shows proper placement of NG, stomach contents returned. May proceed with use. - Results and Orders Patient's Lab Results:: I have reviewed the patient's lab results. - Vital Signs Patient's Vital Signs:: I have reviewed the patient's vital signs. Vital Signs: Vital Signs 02/12/20 12:48 02/12/20 13:39 Temperature 36.2 C Pulse Rate 114 H 108 H Respiratory Rate 16 18 Blood Pressure 163/101 H 150/98 H O2 Sat by Pulse Oximetry 97 91 L - X-Ray X-Ray #1 X-Ray: abdomen Interpretation: Reviewed by me X-ray Comments: IMPRESSION: FINDINGS CONSISTENT WITH SMALL BOWEL OBSTRUCTION. Electronically signed by Hermelindo Falcon D.O.. - CT/Ultrasound CT/Ultrasound Narrative: IMPRESSION: COMPLETE HIGH-GRADE SMALL BOWEL OBSTRUCTION WITH A TRANSITION POINT IN THE RIGHT LOWER QUADRANT. Electronically signed by Hermelindo Falcon, D.O.. - Progress/Reassessment Chief Complaint: Abdominal Pain Progress:: Unchanged Departure Clinical Impression: Small bowel obstruction - Departure Disposition: Still a patient Condition: Stable
[2020-02-12 13:54] LABS: Lymphocyte 25 % (20-51); Monocyte 15 % (0-9); Neutrophil 60 % (42-75); Neutrophil # 9.4 K/mm3 (1.3-6.0); Platelet Estimate Normal (NORMAL); RBC Morphology Normal (NORMAL)
[2020-02-12 14:05] LABS: Albumin * 3.9 gm/dl (3.4-5.0); Anion Gap 16.8 mmol/L (6.8-13.8); BUN/Creatinine Ratio 11.6 (9.0-21.6); Bilirubin, Total 0.6 mg/dL (0.0-1.1); Ca. Corrected For Albumin 9.4 mg/dL (8.4-10.2); Calcium * 9.6 mg/dL (7.9-10.9); Carbon Dioxide 27.5 mmol/L (24-32.6); Potassium 4.3 mmol/L (3.4-4.6); Total Protein 8.9 gm/dL (6.2-8.2)
[2020-02-12] MEDS ORDERED: NORMAL SALINE 1,000 ML IV PRN (15:09)
[2020-02-12 17:15] LABS: Urine Bilirubin Negative (NEGATIVE); Urine Blood Negative /ul (NEGATIVE); Urine Ketone 5 mg/dL (NEGATIVE); Urine Nitrite Negative (NEGATIVE); Urine Protein 30 mg/dL (NEGATIVE); Urine Specific Gravity <=1.005 SP.GR. (1.005-1.030); Urine Urobilinogen Normal (NORMAL); Urine pH 6.5 pH (5.0-7.0)
[2020-02-12 17:24] LABS: Urine Appearance Slightly Cloudy (CLEAR); Urine Bacteria 1+; Urine Color Dark Yellow; Urine RBC None Seen /hpf (0-5); Urine WBC 0-5 /hpf (0-5)
[2020-02-12] MEDS ORDERED: TETRACAINE/BENZOCAINE/BUTAMBEN 56 SPRAY BTL TP ONE ×2 (17:26→17:27)
[2020-02-12] MEDS ORDERED: NORMAL SALINE 1,000 ML IV ONE (18:01)
[2020-02-12] MEDS ORDERED: ONDANSETRON HCL/PF 2 MG/ML VIAL IV PRN (18:01)
--- NOTE | 2020-02-12 20:34 | HP ---
Chief Complaint - Chief Complaint Date of Service: 02/12/20 Time of Service: 20:20 Chief Complaint: nausea/vomiting History of Present Illness: Marino Chen is a 49-year-old white male patient of Dr. White with past medical history of seizure disorder, traumatic brain injury with shunt placement, recurrent small bowel obstructions, history of malignant brain neoplasm, history of exploratory laparotomy and lysis of adhesions who was admit hector on 02/12/2020 because of nausea and vomiting. The patient said that last night he started having vomiting associated with abdominal pain. He vomited mostly bilious material and had a bowel movement early this morning. He however continued to have nausea vomiting associated with fatigue and weakness and so he was brought to the emergency room. His white blood cell count was 15.6, hemoglobin at 18.1, hematocrit of 53.2, creatinine of 1.28, GFR of 58, lipase of 53. His chest x-ray showed enteric tube coursing infradiaphragmatic and off the [id number], no acute cardiopulmonary process. His abdominal x-ray showed findings consistent with small bowel obstruction. His abdominal CT scan showed complete high-grade small bowel obstruction with a transition point in the right lower quadrant. He was then admitted and placed on NG tube. Emergency room physician contacted the general surgery and she will follow-up the patient. Medical History (Last Reviewed 02/12/20 @ 19:23 by Danii Giron RN) Small bowel obstruction (Resolved) Onset Date: 2016 TBI (traumatic brain injury) (Chronic) Onset Date: Unknown GERD (gastroesophageal reflux disease) (Chronic) Onset Date: Unknown Seizures (Chronic) Onset Date: Unknown UTI (urinary tract infection) (Acute) Onset Date: Unknown Partial small bowel obstruction (Acute) Onset Date: Unknown Fracture of proximal ulna, closed (Acute) Onset Date: Unknown design checker shunt (Chronic) Onset Date: Unknown Abdominal adhesions (Chronic) Onset Date: Unknown Seizure disorder (Chronic) Onset Date: Unknown Acute respiratory failure (Acute) Onset Date: Unknown Brain neoplasm malignant Onset Date: 1990 Elbow injury Onset Date: Unknown olecranon fracture, right, closed, initial encounter Onset Date: 2016 Surgical History: Surgical History (Last Reviewed 02/12/20 @ 19:23 by Danii Giron RN) Elbow fracture Onset Date: 2016 ORIF rt olecranon History of brain surgery Onset Date: 1990 Malignant tumor-Yuridia PENNY ORIF Onset Date: 2016 Breder-right olecranon fx excision of skin lesion Onset Date: 2012 Tinguely-left lower leg-Neurilemmoma exploratory laparotomy with lysis of adhesions Onset Date: 2016 Bagan shunt placement Onset Date: 1990 2 brain shunts Family History: Family History (Last Reviewed 02/12/20 @ 19:23 by Danii Giron RN) Mother Alive and well Father Alive and well Throat cancer Grandmother Stomach cancer Grandfather , leukemia age 41 Leukemia Aunt Ovarian cancer, Onset Age: 41 Social History: (Last Reviewed 02/12/20 @ 19:23 by Danii Giron, HENOK) Social History: Marital status: Single household members: family current occupational status: disabled Highest education level completed: high school graduate Service: Yes branch: [employer] status: medically disch/retired Tobacco: Smoking Status: Former smoker Alcohol: alcohol intake: former Substance Use: substance use type: does not use Dietary Habits: caffeine: Yes Type: coffee Review Of Systems (GEN) - Review of Systems Generalized/Overall Review: Present: Weakness. Absent: Chills, Fever EENTM: Absent: Blurred Vision Respiratory: Absent: Cough, Shortness of Breath, Orthopnea Cardiac: Absent: Chest Pain, Edema, Palpitations Abdominal: Present: Nausea, Vomiting, Abdominal Pain. Absent: Hematemesis, Bright blood from rectum Genitourinary: Absent: Urgency, Frequency Musculoskeletal: Absent: Joint Pain Neurological: Absent: Headache Skin: Absent: Lesions, Rash Misc: All systems neg except as marked Immunizations: IMMUNIZATION HX Immunizations Up to Date Yes History of Influenza Vaccine No Hx Pneumococcal Vaccination No Allergies/Adverse Reactions: Allergies Allergy/AdvReac Type Severity Reaction Status Date / Time No Known Allergies Allergy Verified 02/12/20 12:43 Home Medications: HOME MEDICATIONS Haloperidol [Haldol] 20 mg PO BID tab 01/23/19 [Last Taken Unknown] QUEtiapine FUMARATE [Seroquel] 400 mg PO DAILY tab 01/23/19 [Last Taken Unknown] QUEtiapine FUMARATE [Seroquel] 500 mg PO HS tab 01/23/19 [Last Taken Unknown] divalproex 250 mg tablet,delayed release 1,250 mg PO DAILY tab 02/02/19 [Last Taken Unknown] Oxybutynin Chloride [Ditropan] 2.5 mg PO HS 11/12/19 [Last Taken Unknown] wheat dextrin 3 gram/3.5 gram oral powder packet 3 g PO DAILY #28 ea 11/30/19 [Last Taken Unknown] Exam - Exam Vital Signs: Vital Signs - Last Taken Temp 36.2 C 02/12/20 12:48 Pulse 108 H 02/12/20 15:18 Resp 16 02/12/20 15:18 BP 136/97 H 02/12/20 15:18 Pulse Ox 88 L 02/12/20 15:24 Constitutional: Present: Alert, Oriented x3, Cooperative ENT Exam: Present: hearing grossly normal Eye Exam: bilateral eye: normal inspection, PERRL, EOMI Neck: Present: supple. Absent: lymphadenopathy (R), lymphadenopathy (L) Respiratory: Present: normal breath sounds, No rales, No wheezing Cardiovascular/Chest: Present: regular rate, rhythm, no JVD, no murmur Abdomen: Present: soft - to firm, no rebound tenderness, distended, hypoactive. Absent: guarding, rigidity Extremity: Present: no pedal edema, no calf tenderness Diagnostic Studies: Abnormal Lab Results 02/12/20 02/12/20 02/12/20 Range/Units 12:54 13:30 13:30 WBC 15.6 H (4.0-10.5) K/mm3 Hgb 18.1 H (13.5-18.0) gm/dL Hct 53.2 H (42.0-52.0) % MCH 31.7 H (27-31) pg Monocytes % (Manual) 15 H (0-9) % Neutrophils # (Manual) 9.4 H (1.3-6.0) K/mm3 Lymphocytes # (Manual) 3.9 H (1.5-3.5) k/mm3 Monocytes # (Manual) 2.3 H (0.0-1.0) k/mm3 Anion Gap 16.8 H (6.8-13.8) mmol/L Est GFR (Non-Af Amer) 58 L D (60-130) mL/min Random Glucose 132 H (70-110) mg/dL C-Reactive Prot, Quant (0.0-0.9) mg/dL Total Protein 8.9 H (6.2-8.2) gm/dL Lipase 53 L (73-393) U/L Urine Protein 30 H (NEGATIVE) mg/dL Prot Sulfosalicylic Acd 3+ H (0) mg/dL Urine Bacteria 1+ H (NONE) 02/12/20 Range/Units 13:47 WBC (4.0-10.5) K/mm3 Hgb (13.5-18.0) gm/dL Hct (42.0-52.0) % MCH (27-31) pg Monocytes % (Manual) (0-9) % Neutrophils # (Manual) (1.3-6.0) K/mm3 Lymphocytes # (Manual) (1.5-3.5) k/mm3 Monocytes # (Manual) (0.0-1.0) k/mm3 Anion Gap (6.8-13.8) mmol/L Est GFR (Non-Af Amer) (60-130) mL/min Random Glucose (70-110) mg/dL C-Reactive Prot, Quant 8.8 H (0.0-0.9) mg/dL Total Protein (6.2-8.2) gm/dL Lipase (73-393) U/L Urine Protein (NEGATIVE) mg/dL Prot Sulfosalicylic Acd (0) mg/dL Urine Bacteria (NONE) Laboratory Results WBC 15.6 K/mm3 (4.0-10.5) H 02/12/20 13:30 RBC 5.71 M/mm3 (4.7-6.0) 02/12/20 13:30 Hgb 18.1 gm/dL (13.5-18.0) H 02/12/20 13:30 Hct 53.2 % (42.0-52.0) H 02/12/20 13:30 MCV 93.2 fl (78-100) 02/12/20 13:30 MCH 31.7 pg (27-31) H 02/12/20 13:30 MCHC 34.0 g/dl (32-36) 02/12/20 13:30 RDW 13.2 % (11.5-14.0) 02/12/20 13:30 Plt Count 382 K/mm3 (150-450) 02/12/20 13:30 MPV 10.9 fl (8-11.3) 02/12/20 13:30 Neutrophils % (Manual) 60 % (42-75) 02/12/20 13:30 Lymphocytes % (Manual) 25 % (20-51) 02/12/20 13:30 Monocytes % (Manual) 15 % (0-9) H 02/12/20 13:30 Neutrophils # (Manual) 9.4 K/mm3 (1.3-6.0) H 02/12/20 13:30 Lymphocytes # (Manual) 3.9 k/mm3 (1.5-3.5) H 02/12/20 13:30 Monocytes # (Manual) 2.3 k/mm3 (0.0-1.0) H 02/12/20 13:30 Platelet Estimate Normal (NORMAL) 02/12/20 13:30 RBC Morphology Normal (NORMAL) 02/12/20 13:30 Sodium 141 mmol/L (132-142) 02/12/20 13:30 Plasma Sodium 142 mmol/L (130-142) 02/12/20 13:30 Potassium 4.3 mmol/L (3.4-4.6) 02/12/20 13:30 Chloride 101 mmol/L (97-106) 02/12/20 13:30 Carbon Dioxide 27.5 mmol/L (24-32.6) 02/12/20 13:30 Anion Gap 16.8 mmol/L (6.8-13.8) H 02/12/20 13:30 BUN 16 mg/dL (6-23) 02/12/20 13:30 Creatinine 1.38 mg/dL (0.4-1.4) 02/12/20 13:30 Est GFR (Non-Af Amer) 58 mL/min (60-130) L D 02/12/20 13:30 BUN/Creatinine Ratio 11.6 (9.0-21.6) 02/12/20 13:30 Random Glucose 132 mg/dL (70-110) H 02/12/20 13:30 Calcium 9.6 mg/dL (7.9-10.9) 02/12/20 13:30 Calcium Adj for Albumin 9.4 mg/dL (8.4-10.2) 02/12/20 13:30 Total Bilirubin 0.6 mg/dL (0.0-1.1) 02/12/20 13:30 AST 18 U/L (0-48) 02/12/20 13:30 ALT 19 U/L (19-67) 02/12/20 13:30 Alkaline Phosphatase 87 U/L (50-170) 02/12/20 13:30 C-Reactive Prot, Quant 8.8 mg/dL (0.0-0.9) H 02/12/20 13:47 Total Protein 8.9 gm/dL (6.2-8.2) H 02/12/20 13:30 Albumin 3.9 gm/dl (3.4-5.0) 02/12/20 13:30 Amylase 63 U/L (25-115) 02/12/20 13:30 Lipase 53 U/L (73-393) L 02/12/20 13:30 Urine Color Dark yellow 02/12/20 12:54 Urine Appearance Slightly cloudy (CLEAR) 02/12/20 12:54 Urine pH 6.5 pH (5.0-7.0) 02/12/20 12:54 Ur Specific Hedley <=1.005 SP.GR. (1.005-1.030) 02/12/20 12:54 Urine Protein 30 mg/dL (NEGATIVE) H 02/12/20 12:54 Urine Glucose (UA) Negative mg/dL (NEGATIVE) 02/12/20 12:54 Urine Ketones 5 mg/dL (NEGATIVE) 02/12/20 12:54 Urine Blood Negative /ul (NEGATIVE) 02/12/20 12:54 Urine Nitrate Negative (NEGATIVE) 02/12/20 12:54 Urine Bilirubin Negative mg/dl (NEGATIVE) 02/12/20 12:54 Prot Sulfosalicylic Acd 3+ mg/dL (0) H 02/12/20 12:54 Urine Urobilinogen Normal EU/dl (NORMAL) 02/12/20 12:54 Ur Leukocyte Esterase Negative /ul (NEGATIVE) 02/12/20 12:54 Urine RBC None seen /hpf (0-5) 02/12/20 12:54 Urine WBC 0-5 /hpf (0-5) 02/12/20 12:54 Ur Epithelial Cells 0-5 /hpf (0-5) 02/12/20 12:54 Urine Bacteria 1+ (NONE) H 02/12/20 12:54 Urine Culture Comments No culture indicated 02/12/20 12:54 Assessment/Plan - Narrative Narrative: Marino Chen is a 49-year-old white male admitted for nausea, vomiting, abdominal pain secondary to small bowel obstruction. We will keep patient n.p.o. and continue with IV fluids and pain medication. General surgery is on consult. We will continue with his NGT tube with low suction. Hopefully the patient will again open up conservatively. - Assessment/Plan (1) SBO (small bowel obstruction) Problem: Acute (2) History of brain tumor Problem: Resolved (3) TBI (traumatic brain injury) Problem: Chronic (4) GERD (gastroesophageal reflux disease) Problem: Chronic Qualifiers: (5) design checker shunt Problem: Chronic (6) Seizure disorder Problem: Chronic
[2020-02-12] MEDS: QUEtiapine FUMARATE 100 MG TABLET PO SCH (22:14)
[2020-02-12] MEDS: OXYBUTYNIN CHLORIDE 5 MG TABLET PO SCH (22:14)
[2020-02-12] MEDS: HALOPERIDOL 5 MG TABLET PO SCH (22:14)
[2020-02-13 07:07] LABS: Anion Gap 13.7 mmol/L (6.8-13.8); Calcium * 8.4 mg/dL (7.9-10.9); Carbon Dioxide 28.3 mmol/L (24-32.6); Estimated Creat Clear 95.3
[2020-02-13 07:12] LABS: Hematocrit 48.9 % (42.0-52.0); Hemoglobin 16.3 gm/dL (13.5-18.0); Mean Cell Volume 94.8 fl (78-100); Mean Corpuscular Hemoglobin 31.6 pg (27-31); Mean Corpuscular Hgb Conc 33.3 g/dl (32-36); Mean Platelet Volume 11.1 fl (8-11.3); Platelet Count 330 K/mm3 (150-450); Red Blood Count 5.16 M/mm3 (4.7-6.0); Red Cell Distribution Width 13.6 % (11.5-14.0); White Blood Count 11.1 K/mm3 (4.0-10.5)
[2020-02-13 07:14] LABS: Total Cells Counted 100
[2020-02-13] MEDS: POTASSIUM CHLORIDE 20 MEQ in DEXTROSE 5%-NORMAL SALINE 990 ML IV SCH ×3 (07:45→23:07)
[2020-02-13] MEDS ORDERED: NORMAL SALINE 1,000 ML IV PRN (07:45)
[2020-02-13 07:56] LABS: Atypical (Reactive) Lymph 13 % (0-2); Band 12 % (0-2.0); Lymphocyte 4 % (20-51); Monocyte 18 % (0-9); Neutrophil 53 % (42-75); Neutrophil # 5.9 K/mm3 (1.3-6.0)
[2020-02-13 07:57] LABS: Platelet Estimate Normal (NORMAL)
[2020-02-13 07:58] LABS: RBC Morphology Normal (NORMAL)
[2020-02-13] MEDS: ENOXAPARIN SODIUM 40 MG/0.4 ML SYRG SC SCH (08:05)
--- NOTE | 2020-02-13 08:22 | PN ---
Subjective - Date and Time Seen Date: 02/13/20 Time: 07:05 Subjective Narrative: Marino Chen is a 49-year-old white male patient with a past medical history of seizure disorder, traumatic brain injury with shunt placement, recurrent small bowel obstructions (most recent 10/2020), history of malignant brain neoplasm, history of exploratory laparotomy and lysis of adhesions who was admitted on 02/12/2020 because of nausea and vomiting. The patient (and his mother, the giancarlo vásquez is a very poor historian) said that last night he started having vomiting associated with abdominal pain Bowel movement was normal. No blood in his stool or vomit. He however continued to have nausea vomiting associated with weakness and malaise. His white blood cell count was 15.6, hemoglobin at 18.1, hematocrit of 53.2, creatinine of 1.28, GFR of 58, lipase of 53. All of his labs have improved this morning, but he still has 12% bands on his CBC His chest x- ray showed enteric tube coursing infradiaphragmatic and off the [id number], no acute cardiopulmonary process. His abdominal x-ray showed findings consistent with small bowel obstruction. He pulled out his NG tube very early this morning. We will put it back in. Both he and his mother relate he is to be Full Code. He still has some nausea, but no vomiting. He has mild generalized abdominal pain. He hurts all over his body. We will add tylenol to his treatment. We are giving him oral meds and clamping his NG tube for 30 minutes. This has worked for him in the past. We have also ordered a general surgery consultation. Objective - Review of Systems Generalized/Overall Review: Reports: Weakness, Fatigue EENTM: Reports: No Symptoms Reported Respiratory: Reports: No Symptoms Reported Cardiac: Reports: No Symptoms Reported Abdominal: Reports: Nausea, Abdominal Pain Genitourinary Symptoms: Reports: No Symptoms Reported Musculoskeletal Complaints: Reports: Other - hurts all over Neurological: Reports: No Symptoms Reported Endocrine: Reports: No Symptoms Reported Misc: All systems neg except as marked - Vitals Vitals: Last Vital Signs Temp 37.0 C 02/13/20 06:59 Pulse 100 02/13/20 06:59 Resp 20 02/13/20 06:59 BP 149/89 H 02/13/20 06:59 Pulse Ox 93 03/18/20 06:59 vitals have been stable. bp has been running a little high. we will continue to monitor bp. - Abnormal Lab Findings Abnormal Lab Findings: Abnormal Lab Results 02/12/20 02/12/20 02/12/20 Range/Units 12:54 13:30 13:30 WBC 15.6 H (4.0-10.5) K/mm3 Hgb 18.1 H (13.5-18.0) gm/dL Hct 53.2 H (42.0-52.0) % MCH 31.7 H (27-31) pg Band Neuts % (Manual) (0-2.0) % Lymphocytes % (Manual) (20-51) % Monocytes % (Manual) 15 H (0-9) % Neutrophils # (Manual) 9.4 H (1.3-6.0) K/mm3 Lymphocytes # (Manual) 3.9 H (1.5-3.5) k/mm3 Monocytes # (Manual) 2.3 H (0.0-1.0) k/mm3 Atypic/Reactive Lymphs (0-2) % Anion Gap 16.8 H (6.8-13.8) mmol/L Est GFR (Non-Af Amer) 58 L D (60-130) mL/min Random Glucose 132 H (70-110) mg/dL C-Reactive Prot, Quant (0.0-0.9) mg/dL Total Protein 8.9 H (6.2-8.2) gm/dL Lipase 53 L (73-393) U/L Urine Protein 30 H (NEGATIVE) mg/dL Prot Sulfosalicylic Acd 3+ H (0) mg/dL Urine Bacteria 1+ H (NONE) 02/12/20 02/13/20 02/13/20 Range/Units 13:47 06:57 06:57 WBC 11.1 H D (4.0-10.5) K/mm3 Hgb (13.5-18.0) gm/dL Hct (42.0-52.0) % MCH 31.6 H (27-31) pg Band Neuts % (Manual) 12 H (0-2.0) % Lymphocytes % (Manual) 4 L (20-51) % Monocytes % (Manual) 18 H (0-9) % Neutrophils # (Manual) (1.3-6.0) K/mm3 Lymphocytes # (Manual) 0.4 L (1.5-3.5) k/mm3 Monocytes # (Manual) 2.0 H (0.0-1.0) k/mm3 Atypic/Reactive Lymphs 13 H (0-2) % Anion Gap (6.8-13.8) mmol/L Est GFR (Non-Af Amer) (60-130) mL/min Random Glucose 122 H (70-110) mg/dL C-Reactive Prot, Quant 8.8 H (0.0-0.9) mg/dL Total Protein (6.2-8.2) gm/dL Lipase (73-393) U/L Urine Protein (NEGATIVE) mg/dL Prot Sulfosalicylic Acd (0) mg/dL Urine Bacteria (NONE) CRP was 8.8 day of admission. - Exam Constitutional: Present: Alert, Oriented x3, Cooperative, Well developed, Well nourished, Other - oriented except to time., Obese - BMI 30.9 ENT Exam: Present: normal ENT inspection, hearing grossly normal Neck: Present: normal inspection. Absent: lymphadenopathy (R), lymphadenopathy (L), thyromegaly Breasts: Present: Other - male Respiratory: Present: lungs clear, no respiratory distress Cardiovascular/Chest: Present: regular rate, rhythm, no edema, no gallop, no JVD, no murmur Abdomen: Present: no hepatospenomegaly, no masses, obese, tender - diffusely, mild., other - mild to moderate abdominal distension, hypoactive Extremity: Present: no pedal edema, normal capillary refill Skin Exam: Present: normal color, warm/dry, no cyanosis Lymphatic: Present: no adenopathy Neurologic: Present: normal mood/affect, other - mbd due to tbi. very poor historian.. Absent: motor weakness Appearance: Present: appropriate appearance, impaired insight. Absent: appropriate insight Eye contact: Present: good eye contact, normal speech Thoughts: Present: normal thought pattern Assessment/Plan - Problems/Diagnosis (1) Small bowel obstruction Problem: Acute Narrative: appears to be in the same location as last time. will replace NG tube and wait to see what our general surgeon has to say. for generalized and abdominal pain we will add tyleno to his treatment. (2) Abdominal adhesions Problem: Chronic (3) Seizure disorder Problem: Chronic Narrative: we will monitor given his meds are now given via NG tube which is then clamped for 30 minutes, making absorption uncertain. (4) Obesity (BMI 30.0-34.9) Problem: Chronic (5) TBI (traumatic brain injury) Problem: Chronic Qualifiers: Encounter type: subsequent encounter Loss of consciousness presence/duration: with LOC of unspecified duration Qualified Code(s): S06.9X9D - Unspecified intracranial injury with loss of consciousness of unspecified duration, subsequent encounter (6) slitter scorer shunt Problem: Chronic (7) History of brain tumor Problem: Resolved
[2020-02-13] MEDS: DIVALPROEX SODIUM 250 MG TABLET.DR PO SCH (08:52)
[2020-02-13] MEDS: QUEtiapine FUMARATE 100 MG TABLET PO SCH ×2 (08:53→20:36)
[2020-02-13] MEDS: BENEFIBER PO SCH (08:53)
[2020-02-13] MEDS: ACETAMINOPHEN 500 MG TABLET PO PRN (08:53)
[2020-02-13] MEDS: HALOPERIDOL 5 MG TABLET PO SCH ×2 (08:53→20:36)
--- NOTE | 2020-02-13 11:42 | CONS ---
[facility] - General Date of Service: 02/13/20 Source: patient Exam Limitations: no limitations - History of Present Illness Initial Comments: Marino is a pleasant 49-year-old male who came in through the emergency room. He had nausea, vomiting and abdominal pain. He has a history of a previous bowel obstruction with lysis of adhesions. He did have a large bowel movement prior to coming to the emergency room. Today he states he is passing flatus. He feels much better today than he did yesterday. Timing/Duration: 24 hours Severity: moderate Modifying Factors - (Improves): Reports: medication Associated Symptoms: denies symptoms Allergies/Adverse Reactions: Allergies No Known Allergies Allergy (Verified 02/12/20 12:43) Home Medications: Home Medications Medication Instructions Recorded Last Taken Haloperidol [Haldol] 20 mg PO BID tab 01/23/19 Unknown QUEtiapine FUMARATE [Seroquel] 400 mg PO DAILY tab 01/23/19 Unknown QUEtiapine FUMARATE [Seroquel] 500 mg PO HS tab 01/23/19 Unknown divalproex 250 mg tablet,delayed 1,250 mg PO DAILY tab 02/02/19 Unknown release Oxybutynin Chloride [Ditropan] 2.5 mg PO HS 11/12/19 Unknown wheat dextrin 3 gram/3.5 gram oral 3 g PO DAILY #28 ea 11/30/19 Unknown powder packet Procedures Drainage of Stomach with Drainage Device, Via Natural or Artificial Opening (11/12/19) Introduction of Local Anesthetic into Peripheral Nerves and Plexi, Percutaneous Approach (06/28/17) Release Small Intestine, Open Approach (06/30/17) Reposition Right Ulna with Internal Fixation Device, Open Approach (06/28/17) Medications - Medications Current Medications: Current Medications Acetaminophen (Tylenol) 1,000 mg PO TID PRN PRN Reason: Mild pain (pain scale 1-3) Stop: 03/14/20 08:26 Last Admin: 02/13/20 08:53 Dose: 1,000 mg Documented by: Divalproex Sodium (Depakote) 1,250 mg PO DAILY [facility] Stop: 03/14/20 09:01 Last Admin: 02/13/20 08:52 Dose: 1,250 mg Documented by: Enoxaparin Sodium (Lovenox) 40 mg SC Q24H [facility] Stop: 03/14/20 08:01 Last Admin: 02/13/20 08:05 Dose: 40 mg Documented by: Haloperidol (Haldol) 20 mg PO BID [facility] Stop: 03/13/20 21:01 Last Admin: 02/13/20 08:53 Dose: 20 mg Documented by: Potassium Chloride 20 meq/ (Dextrose/Sodium Chloride) 1,000 mls @ 125 mls/hr IV .Q8H [facility] Stop: 03/14/20 06:46 Last Admin: 02/13/20 07:45 Dose: 125 mls/hr Documented by: Benefiber 3 G 3 g PO DAILY [facility] Stop: 03/14/20 09:01 Last Admin: 02/13/20 08:53 Dose: Not Given Documented by: Ondansetron HCl (Zofran) 4 mg IV Q6H PRN PRN Reason: Nausea And Vomiting Stop: 03/13/20 18:02 Last Admin: 02/12/20 18:16 Dose: 4 mg Documented by: Oxybutynin Chloride (Ditropan) 2.5 mg PO [facility] Stop: 03/13/20 21:01 Last Admin: 02/12/20 22:14 Dose: 2.5 mg Documented by: Quetiapine Fumarate (Seroquel) 400 mg PO DAILY [facility] Stop: 03/14/20 09:01 Last Admin: 02/13/20 08:53 Dose: 400 mg Documented by: Quetiapine Fumarate (Seroquel) 500 mg PO HS [facility] Stop: 03/13/20 21:01 Last Admin: 02/12/20 22:14 Dose: 500 mg Documented by: Review of Systems - Review of Systems Generalized/Overall Review: Present: Malaise EENTM: Present: No Symptoms Reported Respiratory: Present: No Symptoms Reported Cardiac: Present: No Symptoms Reported Abdominal: Present: Nausea - Resolved, Vomiting - Resolved, Abdominal Pain - Resolved Genitourinary: Present: No Symptoms Reported Musculoskeletal: Present: No Symptoms Reported Neurological: Present: No Symptoms Reported Skin: Present: No Symptoms Reported Endocrine: Present: No Symptoms Reported Physical Examination - Exam Vital Signs: Vital Signs - Last Taken Temp 36.8 C 02/13/20 10:00 Pulse 103 H 02/13/20 10:00 Resp 20 02/13/20 10:00 BP 151/87 H 02/13/20 10:00 Pulse Ox 96 02/13/20 10:00 O2 Oxygen Delivery Method Room Air - Results and Findings: Lab/Microbiology results last 24 hrs: Abnormal/Pending Laboratory Last 24 HRS 02/13/20 02/13/20 02/12/20 06:57 06:57 13:47 WBC 11.1 H D Hgb Hct MCH 31.6 H Band Neuts % (Manual) 12 H Lymphocytes % (Manual) 4 L Monocytes % (Manual) 18 H Neutrophils # (Manual) Lymphocytes # (Manual) 0.4 L Monocytes # (Manual) 2.0 H Atypic/Reactive Lymphs 13 H Anion Gap Est GFR (Non-Af Amer) Random Glucose 122 H C-Reactive Prot, Quant 8.8 H Total Protein Lipase Urine Protein Prot Sulfosalicylic Acd Urine Bacteria 02/12/20 02/12/20 02/12/20 13:30 13:30 12:54 WBC 15.6 H Hgb 18.1 H Hct 53.2 H MCH 31.7 H Band Neuts % (Manual) Lymphocytes % (Manual) Monocytes % (Manual) 15 H Neutrophils # (Manual) 9.4 H Lymphocytes # (Manual) 3.9 H Monocytes # (Manual) 2.3 H Atypic/Reactive Lymphs Anion Gap 16.8 H Est GFR (Non-Af Amer) 58 L D Random Glucose 132 H C-Reactive Prot, Quant Total Protein 8.9 H Lipase 53 L Urine Protein 30 H Prot Sulfosalicylic Acd 3+ H Urine Bacteria 1+ H - Assessments/Findings (1) Small bowel obstruction Problem: Acute Plan - Plan Plan: We will plan to continue with conservative care. We will continue with the NG and IV fluids. It is a good sign that he does not have abdominal pain his labs are improving and he is passing flatus. Hopefully we can clamp the NG tube tomorrow.
[2020-02-13] MEDS ORDERED: FLU VACC QS2019-20(6MOS UP)/PF 60 MCG/0.5 ML SYRINGE IM ONE (14:00)
[2020-02-13] MEDS: OXYBUTYNIN CHLORIDE 5 MG TABLET PO SCH (20:36)
[2020-02-14 06:40] LABS: Hematocrit 42.2 % (42.0-52.0); Hemoglobin 14.1 gm/dL (13.5-18.0); Mean Cell Volume 96.6 fl (78-100); Mean Corpuscular Hemoglobin 32.3 pg (27-31); Mean Corpuscular Hgb Conc 33.4 g/dl (32-36); Mean Platelet Volume 10.8 fl (8-11.3); Neutrophil % 55.8 % (42-75.0); Platelet Count 268 K/mm3 (150-450); Red Blood Count 4.37 M/mm3 (4.7-6.0); Red Cell Distribution Width 13.9 % (11.5-14.0)
[2020-02-14 06:50] LABS: BUN/Creatinine Ratio 16.1 (9.0-21.6); Calcium * 7.9 mg/dL (7.9-10.9); Estimated Creat Clear 116.1
[2020-02-14] MEDS: POTASSIUM CHLORIDE 20 MEQ in DEXTROSE 5%-NORMAL SALINE 990 ML IV SCH (07:07)
[2020-02-14] MEDS: DIVALPROEX SODIUM 250 MG TABLET.DR PO SCH (08:50)
[2020-02-14] MEDS: HALOPERIDOL 5 MG TABLET PO SCH ×2 (08:50→21:46)
[2020-02-14] MEDS: ENOXAPARIN SODIUM 40 MG/0.4 ML SYRG SC SCH (08:50)
[2020-02-14] MEDS: BENEFIBER PO SCH (08:51)
[2020-02-14] MEDS: QUEtiapine FUMARATE 100 MG TABLET PO SCH ×2 (08:51→21:43)
[2020-02-14] MEDS: ACETAMINOPHEN 500 MG TABLET PO PRN (09:03)
--- NOTE | 2020-02-14 09:34 | PN ---
Dictated Progress Note - Date and Time Seen: Date: 02/14/20 Time: 09:33 - Progress Note Narrative: doing better, denies abd pain, having flatus, no bm Vital Signs - Last Taken Temp 36.4 C 02/14/20 06:26 Pulse 89 02/14/20 06:26 Resp 24 H 02/14/20 06:26 BP 137/82 02/14/20 06:26 Pulse Ox 92 L 02/14/20 06:26 Abnormal/Pending Laboratory Last 24 HRS 02/14/20 02/14/20 06:20 06:20 RBC 4.37 L MCH 32.3 H Monocytes % 14.8 H Monocytes # 1.3 H Sodium 146 H Plasma Sodium 146 H Chloride 111 H Random Glucose 114 H NAD non labored respirations skin warm dry abd, soft, sl distended IMP: SBO resolving Plan: clamp NG start clears
--- NOTE | 2020-02-14 11:20 | PN ---
Subjective - Date and Time Seen Date: 02/14/20 Time: 10:45 Subjective Narrative: Marino Chen is a 49-year-old white male patient with a past medical history of seizure disorder, traumatic brain injury with shunt placement, recurrent small bowel obstructions (most recent 10/2020), history of malignant brain neoplasm, history of exploratory laparotomy and lysis of adhesions. His NG tube has now been clamped, he is taking clear liquids well and has bowel sounds and is passing flatus. No bm yet. no nausea. Both he and his mother are present at the time of my examination today. He has virtually no abdominal pain and his diffuse body pain has abated. I've read today's surgical consultation report. Objective - Review of Systems Generalized/Overall Review: Reports: No Symptoms Reported EENTM: Reports: No Symptoms Reported Respiratory: Reports: No Symptoms Reported Cardiac: Reports: No Symptoms Reported Abdominal: Reports: Other - minimal diffuse discomfort.. Denies: Nausea Genitourinary Symptoms: Reports: No Symptoms Reported Musculoskeletal Complaints: Reports: No Symptoms Reported Neurological: Reports: Pre-existing Deficit. Denies: Anxiety, Depressed Endocrine: Reports: No Symptoms Reported Misc: All systems neg except as marked - Vitals Vitals: Last Vital Signs Temp 36.9 C 02/14/20 09:57 Pulse 96 02/14/20 09:57 Resp 18 02/14/20 09:57 BP 136/81 02/14/20 09:57 Pulse Ox 92 L 02/14/20 09:57 vitals have been stable. he has remained afebrile. - Abnormal Lab Findings Abnormal Lab Findings: Abnormal Lab Results 02/14/20 02/14/20 Range/Units 06:20 06:20 RBC 4.37 L (4.7-6.0) M/mm3 MCH 32.3 H (27-31) pg Monocytes % 14.8 H (0.0-9) % Monocytes # 1.3 H (0.0-1.0) k/mm3 Sodium 146 H (132-142) mmol/L Plasma Sodium 146 H (130-142) mmol/L Chloride 111 H (97-106) mmol/L Random Glucose 114 H (70-110) mg/dL labs are ok. sodium and chloride are a little high. we are stopping iv fluids now, and as long as nothing new occurs, he doesn't need labwork tomorrow morning. - Exam Constitutional: Present: Alert, Cooperative, Well developed, No distress, Other - oriented except to time, Obese ENT Exam: Present: normal ENT inspection, hearing grossly normal Neck: Absent: lymphadenopathy (R), lymphadenopathy (L), thyromegaly Respiratory: Present: lungs clear, no respiratory distress Cardiovascular/Chest: Present: normal peripheral pulses, regular rate, rhythm, no chest tenderness, no edema, no gallop, no JVD Abdomen: Present: nontender, nondistended, hypoactive /Rectal: Present: Exam deferred Extremity: Present: normal inspection, no pedal edema Skin Exam: Present: normal color, warm/dry, no cyanosis Lymphatic: Present: no adenopathy Neurologic: Absent: motor weakness, dizzy/light-headedness Appearance: Present: appropriate appearance, neat. Absent: appropriate insight Eye contact: Present: cooperative, good eye contact, other - chronically slight speech impediment Thoughts: Present: normal thought pattern Assessment/Plan - Problems/Diagnosis (1) Small bowel obstruction Problem: Acute Narrative: improving. will keep ng clamped and encourage clear liquids and frequent ambulation. we will stop iv fluids for the time being. 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
[2020-02-14] MEDS: OXYBUTYNIN CHLORIDE 5 MG TABLET PO SCH (21:43)
--- NOTE | 2020-02-15 08:51 | PN ---
Dictated Progress Note - Date and Time Seen: Date: 02/15/20 Time: 08:50 - Progress Note Narrative: no complaints Vital Signs - Last Taken Temp 37.6 C 02/15/20 08:00 Pulse 92 02/15/20 08:00 Resp 20 02/15/20 08:00 BP 121/75 02/15/20 08:00 Pulse Ox 94 02/15/20 08:00 abd sl distended non tender resp non labored skin warm and dry Imp: resolving SBO Plan dc NG, ADAT
[2020-02-15] MEDS: ENOXAPARIN SODIUM 40 MG/0.4 ML SYRG SC SCH (09:15)
[2020-02-15] MEDS: DIVALPROEX SODIUM 250 MG TABLET.DR PO SCH (09:15)
[2020-02-15] MEDS: QUEtiapine FUMARATE 100 MG TABLET PO SCH (09:16)
[2020-02-15] MEDS: BENEFIBER PO SCH (09:18)
[2020-02-15] MEDS: HALOPERIDOL 5 MG TABLET PO SCH (09:20)
--- NOTE | 2020-02-15 12:13 | DS ---
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 NG tube, IV fluids and expectant management. His white blood count was slightly elevated on admission, but yesterday had come down to normal. His vitals have remained stable. Today he has passed a bowel movement. He has no nausea vomiting or abdominal pain. He continues to pass flatus. NG tube was clamped yesterday, and that all went very well. NG tube was removed this morning. Procedures Performed: none Results and Findings: Lab Pending Results 02/12/20 12:54: Urine Color Dark yellow, Urine Appearance Slightly cloudy, Urine pH 6.5, Ur Specific [place] <=1.005, Urine Protein 30 H, Urine Glucose (UA) Negative, Urine Ketones 5, Urine Blood Negative, Urine Nitrate Negative, Urine Bilirubin Negative, Prot Sulfosalicylic Acd 3+ H, Urine Urobilinogen Normal, Ur Leukocyte Esterase Negative, Urine RBC None seen, Urine WBC 0-5, Ur Epithelial C ells 0-5, Urine Bacteria 1+ H, Urine Culture Comments No culture indicated 02/12/20 13:30: WBC 15.6 H, RBC 5.71, Hgb 18.1 H, Hct 53.2 H, MCV 93.2, MCH 31.7 H, MCHC 34.0, RDW 13.2, Plt Count 382, MPV 10.9, Neutrophils % (Manual) 60, Lymphocytes % (Manual) 25, Monocytes % (Manual) 15 H, Neutrophils # (Manual) 9.4 H, Lymphocytes # (Manual) 3.9 H, Monocytes # (Manual) 2.3 H, Platelet Estimate Normal, RBC Morphology Normal 02/12/20 13:30: Sodium 141, Plasma Sodium 142, Potassium 4.3, Chloride 101, Carbon Dioxide 27.5, Anion Gap 16.8 H, BUN 16, Creatinine 1.38, Est GFR (Non-Af Amer) 58 L D, BUN/Creatinine Ratio 11.6, Random Glucose 132 H, Calcium 9.6, Calcium Adj for Albumin 9.4, Total Bilirubin 0.6, AST 18, ALT 19, Alkaline Phosphatase 87, Total Protein 8.9 H, Albumin 3.9, Amylase 63, Lipase 53 L 02/12/20 13:47: C-Reactive Prot, Quant 8.8 H 02/13/20 06:57: WBC 11.1 H D, RBC 5.16, Hgb 16.3, Hct 48.9, MCV 94.8, MCH 31.6 H, MCHC 33.3, RDW 13.6, Plt Count 330, MPV 11.1, Neutrophils % (Manual) 53, Band Neuts % (Manual) 12 H, Lymphocytes % (Manual) 4 L, Monocytes % (Manual) 18 H, Neutrophils # (Manual) 5.9, Lymphocytes # (Manual) 0.4 L, Monocytes # (Manual) 2.0 H, Atypic/Reactive Lymphs 13 H, Platelet Estimate Normal, RBC Morphology Normal 02/13/20 06:57: Sodium 142, Plasma Sodium 142, Potassium 4.0, Chloride 104, Carbon Dioxide 28.3, Anion Gap 13.7, BUN 17, Creatinine 1.06, Est GFR (Non-Af Amer) 79 D, BUN/Creatinine Ratio 16.0, Random Glucose 122 H, Calcium 8.4 02/14/20 06:20: WBC 9.0, RBC 4.37 L, Hgb 14.1, Hct 42.2, MCV 96.6, MCH 32.3 H, MCHC 33.4, RDW 13.9, Plt Count 268, MPV 10.8, Immature Gran % (Auto) 0.30, Immature Gran # (Auto) 0.03, Neutrophils % 55.8, Lymphocytes % 28.5, Monocytes % 14.8 H, Eosinophils % 0.4, Basophils % 0.2, Nucleated RBC % 0.0, Neutrophils # 5.0, Lymphocytes # 2.57, Monocytes # 1.3 H, Eosinophils # 0.0, Absolute Basophils 0.0 02/14/20 06:20: Sodium 146 H, Plasma Sodium 146 H, Potassium 4.0, Chloride 111 H, Carbon Dioxide 27.0, Anion Gap 12.0, BUN 14, Creatinine 0.87, Est GFR (Non-Af Amer) 99 D, BUN/Creatinine Ratio 16.1, Random Glucose 114 H, Calcium 7.9 Discharge Location: Home Disposition: Home self-care Condition: Good Discharge Activity: Activity as tolerated Discharge Diet: General/regular food Consultation Done:: Dr. Tejeda, general surgery Additional Patient Instructions (free text): Will be a TCM follow up appointment. Please call if there are problems or questions. Please see Dr. White in the office in about 1 week. Complete Home Medications List: Complete Home Medication List: Haloperidol [Haldol] 20 mg PO BID tab 01/23/19 QUEtiapine FUMARATE [Seroquel] 400 mg PO DAILY tab 01/23/19 QUEtiapine FUMARATE [Seroquel] 500 mg PO HS tab 01/23/19 divalproex 250 mg tablet,delayed release 1,250 mg PO DAILY tab 02/02/19 Oxybutynin Chloride [Ditropan] 2.5 mg PO HS 11/12/19 wheat dextrin 3 gram/3.5 gram oral powder packet 3 g PO DAILY #28 ea 11/30/19 Acetaminophen [Tylenol] 1,000 mg PO TID PRN tablet 02/15/20
[2020-02-15 13:32] VITALS: BP 137/77
== END 2020-02-15 13:38 | disposition home or self-care (01) | DRG 390 ==
LOC: ER 12:35 → MS 17:34
PROVIDERS: ADMIT Internal Medicine; ATTEND Allergy & Immunology
CPT/HCPCS: 36415; 71010; 71045; 74019; 74020; 74177; 80048; 80053; 81001; 82150; 83690; 85007; 85025; 86140; 90686; 96374; 99284; 99285; G0008; J2405; Q9963; Q9967